=== PATIENT | female | born 1940 | race Caucasian/White ===

== ENCOUNTER 2019-05-26 19:13 | Observation (INO) | payer MEDICARE, OTHER, SELFPAY ==
[2019-05-26] VITALS (50 sets, daily range): BP systolic 143–205; BP diastolic 62–119; PULSE 54–86; RESP 12–30; TEMP 36.8–37.1; O2SAT 79–100
--- NOTE | 2019-05-26 19:26 | DI.COMBO_ITS ---
SYMPTOM/DIAGNOSIS: CHEST PAIN, DISSECTION VS PE, PT COLLAPSED PORTABLE AP CHEST: Pulmonary hyperinflation is demonstrated. There is mild prominence of the pulmonary interstitial markings. There is no pleural effusion or pneumothorax. The heart is not enlarged. Unfolding of the thoracic aorta is demonstrated. Degenerative changes involving the dorsal spine are evident. SUMMARY: Pulmonary hyperinflation and prominence of the interstitial markings is demonstrated. Nil else. PE CHEST CT: CT angiography was performed with multi slice acquisition and multi planar and 3D reconstruction. The study was carried out according to the usual protocol with an intravenous administration of 100 cc's of Omnipaque 350. There is no evidence of PE. The aorta is tortuous and ectatic measuring up to 3.8 cm. in maximal diameter. Moderate atherosclerotic changes are identified. There are moderate scattered centrilobular nodules and in addition there is a region of bronchiectasis with scarring in the left upper lobe. There is no evidence of a pneumothorax or pleural effusion. The heart is unremarkable. There is no evidence of lymphadenopathy. Degenerative changes involving the dorsal spine are evident. The soft tissues are unremarkable. SUMMARY: No evidence of PE or dissecting aortic aneurysm. The ascending aorta is ectatic measuring up to 3.8 cm. in diameter. Note is made of scattered bilateral centrilobular nodules that may be seen in infection or neoplasm and with bronchiolitis and interstitial lung disease. In addition there is patchy left upper lobe bronchiectasis and fibrotic changes.
--- NOTE | 2019-05-26 19:27 | W.ED.GENAD ---
Discharge Plan Disposition Patient Disposition: [facility] INPATIENT Condition: Stable Discharge Details Chief Complaint: Chest Pain Clinical Impression: Chest pain Primary Care Provider: Winifred Gamez ED Provider: Vinicius Jennings Home Meds and New Rx's Prescriptions: No Action lisinopril 20 mg Tablet 20 mg PO DAILY RF: 0 hydrocodone-acetaminophen [[place]ector] 7.5-325 mg Tablet 7.5 tab PO PRN PRNRF: 0 carbidopa-levodopa 25-100 mg Tablet 1 tab PO HS RF: 0 oxybutynin chloride 5 mg Tablet 10 mg PO BID RF: 0 Medical Decision Making Patient presenting to the emergency department with chief complaint of severe substernal chest pain. This started approximately 2 hours prior to arrival. Patient does state history of rib pain and scar tissue from previous injury that she takes Hector occasionally for but this evening has had pain like she has never had in the past. Patient does state that she had worked outside today but not had any pain or discomfort injury or trauma. Physical exam is unremarkable. I am concerned for dissection given patient's considerable arm pain and discomfort. Plan to obtain chest x-ray, labs, EKG, and CTA. Patient is noticeably anxious so plan to give Ativan before reassessing pressure and consideration of labetalol due to patient's slight bradycardia. p ortable chest x-ray reviewed and interpreted by [facility] as Pulmonary hyperaeration with mild prominence of the pulmonary interstitial markings. 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 Patient given 0.5mg of hydromorphone. Review of CT imaging and radiologist interpretation shows1. No current CT evidence of pulmonary embolism or dissecting aortic aneurysm. 2. Ectatic ascending aorta measuring 3.8 cm. 3. Scattered bilateral centrilobular nodules that can be seen in infection, neoplasm, and with bronchiolitis and interstitial lung disease. Please correlate clinically. 4. Patchy left upper lobe bronchiectasis with fibrotic changes. Patient reassessed and states continued chest pain but some improvement so again 0.5 mg hydromorphone given Review of labs show mild anemia otherwise unremarkable CBC, slightly elevated BUN of 22 otherwise nondiagnostic CMP, troponin is negative, BNP is 727. Patient reassessed and states significant improvement of symptoms along with pain. Plan to do second troponin. Given patient's history of hypertension, her age, and highly suspicious symptoms patient does have moderate heart score. Given this I do feel that patient should have observation admission. Second troponin reviewed and is also negative. Spoke with Dr. Balbuena who was agreeable to admit patient for observation and any further treatment as needed. Patient was agreeable with this plan. ECG Data Attestation: I personally reviewed and interpreted this ECG (s) as follows: Interpretation: EKG reviewed with attending physician Dr. Yadira Hunt and shows sinus bradycardia, rate of 59, normal axis, no STEMI, abnormal not-diagnostic HPI General Mode of arrival: wheelchair. Date/Time Provider Initiated Documentation: 05/26/19 19:16. Limitations to Documentation: no limitations. Information obtained by: patient and RN notes reviewed. History of Present Illness 78 year old F presents to the emergency department with the chief complaint of Chest pain, described as severe, with intensity rated at 10. Quality is described as crushing and sharp, Patient started experiencing this hour(s) (2) and it has been constant. No exacerbating factors reported . Patient did receive the following treatments prior to arrival, NSAID Related Data Home Medications Medication Instructions Recorded Confirmed carbidopa-levodopa 1 tab PO HS 05/26/19 05/26/19 hydrocodone-acetaminophen [[place]] 7.5 tab PO PRN PRN 05/26/19 05/26/19 lisinopril 20 mg PO DAILY 05/26/19 05/26/19 oxybutynin chloride 10 mg PO BID 05/26/19 05/26/19 Allergies Allergy/AdvReac Type Severity Reaction Status Date / Time morphine Allergy Severe Psychosis Unverified 05/26/19 19:34 Penicillins Allergy Intermediate Hives Unverified 05/26/19 19:37 General Stated Complaint: Chest Pain CASEY: 2 Review of Systems Constitutional Constitutional: Denies chills and Denies fever(s) Cardiovascular Cardiovascular: Reports as per HPI, Reports chest pain, Denies chest pain with activity, Denies syncope, Denies irregular heart rhythm, Denies palpitations and Denies dyspnea Respiratory Respiratory: Denies cough, Denies hemoptysis and Denies dyspnea Gastrointestinal Gastrointestinal: Denies abdominal pain, Denies nausea and Denies vomiting Neurologic Neurologic: Denies syncope Psychiatric Psychiatric: Reports anxiety Endocrine Endocrine: Denies palpitations [facility] Social History Smoking/Tobacco Use Status: Former Tobacco Use Alcohol Intake: never Drug use: Never Substance use type: does not use Details: stopped smoking 20 years ago Do you feel safe at home: Yes Do you feel safe in your relationship?: Yes Exam Const General: cooperative, in distress severe; not respiratory, anxious and not diaphoretic Nutritional Appearance: average body habitus Orientation: alert, awake and oriented x3 Limitations: mental status not altered Neck Neck: normal visual inspection, full ROM, trachea midline, supple and no anterior neck swelling Thyroid: thyroid normal Carotids: normal carotid upstroke and no bruits Chest Chest: normal inspection of the chest Resp Effort & Inspection: able to speak in complete sentences and tachypneic Auscultation: clear to auscultation bilaterally Cardio Jugular venous pressure: no JVD Palpation: normal PMI Rate: regular rate Rhythm: regular rhythm Heart Sounds: S1 normal, S2 normal, no click, no gallops, no murmurs and no rubs Bruits: no abdominal aortic bruits and no carotid bruits Pulses: radial pulses present bilaterally 2+ and dorsalis pedis pulses present bilaterally GI Inspection: normal to inspection Palpation: soft, no aortic enlargement, no pulsatile masses, not rigid and nontender Auscultation: normal bowel sounds and no bruits Skin General skin exam: no rashes or lesions noted Neuro General: alert, awake, oriented x3, tone normal and moves all extremities Course Vital Signs Vital signs: Vital Signs Pulse 54 L 05/26/19 19:20 Respiratory Rate 21 05/26/19 19:20 Blood Pressure 196/65 H 05/26/19 19:20 Pulse Oximetry 100 05/26/19 19:20 Temperature Source Skin 05/26/19 19:20 Pulse 54 L 05/26/19 19:20 Respiratory Rate 21 05/26/19 19:20 Blood Pressure 196/65 H 05/26/19 19:20 Blood Pressure Position Supine 05/26/19 19:20 Pulse Oximetry 100 05/26/19 19:20 Oxygen Delivery Method Room Air 05/26/19 19:20 Oxygen Flow Rate 0 05/26/19 19:20 Pain Level 10 05/26/19 19:20
[2019-05-26] MEDS: LORazepam 2 MG/ML VIAL 0.5 MG IVP (19:32)
--- NOTE | 2019-05-26 19:45 | DI.[facility]_ITS ---
EXAM: XR Chest, 1 View EXAM DATE/TIME: 05/26/2019 7:39 PM CLINICAL HISTORY: 78 years old, female; Other: Chest pain TECHNIQUE: Imaging protocol: XR of the chest Views: 1 view. COMPARISON: No relevant prior studies available. FINDINGS: Lungs: There is mild prominence of the pulmonary interstitial markings with pulmonary hyperaeration. Pleural space: Unremarkable. No pleural effusion. No pneumothorax. Heart/Mediastinum: Unremarkable. No cardiomegaly. Vasculature: There is an elongated tortuous thoracic aorta present. Bones/joints: Degenerative changes of the thoracic spine without acute osseous abnormality. IMPRESSION: Pulmonary hyperaeration with mild prominence of the pulmonary interstitial markings. Dictated and Authenticated by: Craig Nix MD. Ordering:ANN Colvin MD
[2019-05-26] MEDS: HYDROmorphone 2 MG/ML VIAL 0.5 MG IVP ×2 (19:51→20:16)
[2019-05-26 20:04] LABS: Abs Immature Grans 0.02 k/cumm (0.0-0.09); Absolute Basophil Count 0.05 k/cumm (0.0-0.2); Absolute Eosinophil Count 0.28 k/cumm (0.0-0.7); Absolute Lymphocyte Count 2.39 k/cumm (1.2-3.4); Absolute Monocyte Count 0.68 k/cumm (0.11-0.7); Absolute Neutrophil Count 5.21 k/cumm (1.2-6.7); Basophils % 0.6; Eosinophils % 3.2; HCT 35.9 % (36.0-46.0); HGB 11.6 g/dL (12.0-15.5); Immature Grans % 0.2; Lymphocytes % 27.7; Mean Corp. HGB Concentration 32.3 g/dL (32.0-36.0); Mean Corpuscular Hemoglobin 31.7 pg (27.0-33.0); Mean Corpuscular Volume 98.1 fL (80-95); Mean Platelet Volume 9.2 fL (8.0-11.0); Monocytes % 7.9; Neutrophils % 60.4; Platelet Count 347 x1000/uL (130-400); RBC 3.66 m/cumm (4.00-5.20); White Blood Cell Count 8.63 k/cumm (4.4-10.8)
[2019-05-26] MEDS: Omnipaque 350 MG/ML 100 ML BTL IJ (20:10)
[2019-05-26 20:22] LABS: ALT 20 U/L (14-59); AST 24 U/L (15-37); Albumin 4.3 g/dL (3.4-5.0); Alkaline Phosphatase 111 U/L (46-116); Anion Gap 8.3 mmol/L (3-11); BUN 22 mg/dL (7-18); Bilirubin, Total 0.3 mg/dL (0.2-1.0); CO2 27.7 mmol/L (21.0-32.0); CREATININE 0.96 mg/dL (0.55-1.02); Chloride 104 mmol/L (98-107); Estimated GFR 56.21 (mL/min/1.73m2); Glucose 89 mg/dL (70-100); Magnesium 2.2 mg/dL (1.8-2.4); NT-proBNP 727 pg/mL; Potassium 3.9 mmol/L (3.5-5.1); Sodium 140 mmol/L (136-145); Total Protein 7.1 g/dL (6.4-8.2); Troponin I < 0.05 ng/mL (0.00-0.06)
--- NOTE | 2019-05-26 21:02 | DI.[facility]_ITS ---
EXAM: CT Angiography Chest With Contrast EXAM DATE/TIME: 05/26/2019 7:53 PM CLINICAL HISTORY: 78 years old, female; Sternal or substernal pain; Additional info: Substernal chest pain, ? pe vs dissection TECHNIQUE: Imaging protocol: Computed tomographic angiography of the chest with intravenous contrast. 3D rendering: MIP reconstructed images were created and reviewed. Radiation optimization: All CT scans at this facility use at least one of these dose optimization techniques: automated exposure control; mA and/or kV adjustment per patient size (includes targeted exams where dose is matched to clinical indication); or iterative reconstruction. Contrast material: [id number]; Contrast volume: 100 ml; Contrast route: IV RAC 18G; COMPARISON: XR PORTABLE CHEST AP 05/26/2019 7:28 PM FINDINGS: Pulmonary arteries: There are no intraluminal filling defects to suggest acute pulmonary embolus. Aorta: There is an ectatic ascending aorta measuring 3.8 cm. Aorta demonstrates moderate atherosclerotic calcification. Lungs: There are bilateral scattered centrilobular nodules present. In addition there is a region of bronchiectasis with scarring in the left upper lobe. Pleural space: Unremarkable. No pneumothorax. No pleural effusion. Heart: Unremarkable. No cardiomegaly. No pericardial effusion. Lymph nodes: Unremarkable. No enlarged lymph nodes. Bones/joints: Degenerative changes of the thoracic spine without acute osseous abnormality. Soft tissues: Unremarkable. IMPRESSION: 1. No current CT evidence of pulmonary embolism or dissecting aortic aneurysm. 2. Ectatic ascending aorta measuring 3.8 cm. 3. Scattered bilateral centrilobular nodules that can be seen in infection, neoplasm, and with bronchiolitis and interstitial lung disease. Please correlate clinically. 4. Patchy left upper lobe bronchiectasis with fibrotic changes. Dictated and Authenticated by: Craig Nix MD. Ordering:ANN Colvin MD
--- NOTE | 2019-05-26 22:49 | W.PM.HP.N ---
Date of service: 05/26/19 Time of Service: 22:49 Assessment and Plan Assessment and plan (1) Chest pain: Status: Acute Assessment and plan: CP. The sharp quality, sudden onset, and vague radiation to the back -- raise concern for dissection, but none by CT imaging. No evidence otherwise of PTX, ACS, pneumonia, pericarrditis or other intrathoracic pathology. Possible esopohageal spasm or musculoskeletal etiology. Will await troponin series and otherwise watch overnight. Another consideration would be for biliary colic and if no diagnosis is forthcoming might be worth checking ultrasound. Reviewed Advance Directives, requests DNR History of Present Illness History of Present Illness Chief Complaint: CP Narrative: 78 femalw with h/o HTN. 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 No SOB, nausea, diaphoresis. No relation to deep breathing, position or PO intake. Some vague radiation to the back. In ER EKG and troponin #1 negative. CXR negative, and CTA negative PE or dissection.Received Dilaudid 1 mg in divided doses and Ativan 0.5 mg -- with essential resolution of pain. Aside ffom concern that pain might recur she feels entirely well at present. Review of Systems Review of Systems ROS Unobtainable: All systems reviewed & are unremarkable except as noted in HPI and below PFSH Social History Smoking/Tobacco Use Status: Former Tobacco Use Alcohol Intake: never Drug use: Never Substance use type: does not use Details: stopped smoking 20 years ago Do you feel safe at home: Yes Do you feel safe in your relationship?: Yes Meds Home Medications and Allergies Home Medications Medication Instructions Recorded Confirmed Type carbidopa-levodopa 1 tab PO HS 05/26/19 05/26/19 History hydrocodone-acetaminophen [[place]] 7.5 tab PO PRN PRN 05/26/19 05/26/19 History lisinopril 20 mg PO DAILY 05/26/19 05/26/19 History oxybutynin chloride 10 mg PO BID 05/26/19 05/26/19 History Allergies Allergy/AdvReac Type Severity Reaction Status Date / Time morphine Allergy Severe Psychosis Unverified 05/26/19 19:34 Penicillins Allergy Intermediate Hives Unverified 05/26/19 19:37 Exam Narrative Exam Narrative: 163/78, 64, 15, 37.1. 98%. HEENT atraumatic; neck supple w/o JVD; lungs few basilar rales; heart RRR w/o MRG; no chest wall tenderness; abdomen soft NT; extremities no edema, calves NT, Hanny's negative. Results Labs Result diagrams: 05/26/19 19:38 05/26/19 19:38 Labs: Laboratory Results - last 24 hr 05/26/19 05/26/19 19:38 19:38 WBC 8.63 RBC 3.66 L Hgb 11.6 L Hct 35.9 L MCV 98.1 H MCH 31.7 MCHC 32.3 RDW 14.0 Plt Count 347 MPV 9.2 Immature Gran % 0.2 Neutrophils % 60.4 Lymphocytes % 27.7 Monocytes % 7.9 Eosinophils % 3.2 Basophils % 0.6 Absolute Neutrophils 5.21 Absolute Lymphocytes 2.39 Absolute Monocytes 0.68 Absolute Eosinophils 0.28 Absolute Basophils 0.05 Sodium 140 Potassium 3.9 Chloride 104 Carbon Dioxide 27.7 Anion Gap 8.3 BUN 22 H Creatinine 0.96 Estimated GFR/1.73 m2 56.21 Glucose 89 Calcium 9.0 Magnesium 2.2 Total Bilirubin 0.3 AST 24 ALT 20 Alkaline Phosphatase 111 Troponin I < 0.05 NT-Pro-B Natriuret Pep 727 H Total Protein 7.1 Albumin 4.3 Last Vital Signs Temp 37.1 C 05/26/19 19:20 Pulse 63 05/26/19 22:17 Resp 17 05/26/19 22:20 BP 152/80 H 05/26/19 22:17 Pulse Ox 98 05/26/19 22:20
[2019-05-26 23:10] LABS: Troponin I < 0.05 ng/mL (0.00-0.06)
[2019-05-26] MEDS: HYDROmorphone 2 MG/ML VIAL 1 MG IVP (23:35)
[2019-05-26] MEDS: LORazepam 2 MG/ML VIAL (23:36)
[2019-05-27] VITALS (7 sets, daily range): BP systolic 146–153; BP diastolic 67–78; PULSE 67–76; RESP 17–18; TEMP 36.2–36.8; O2SAT 95–96
--- NOTE | 2019-05-27 06:07 | NUR.NOTE ---
Nursing Note: 05/27/19 0012- pt arrived from emergency room via stretcher to med surg floor. pt has belongings in room. vital signs stable and tele was put on.
[2019-05-27] MEDS: Oxybutynin 5 MG TAB 10 MG PO (07:47)
[2019-05-27] MEDS: Lisinopril 20 MG TAB PO (07:47)
[2019-05-27 07:56] LABS: Troponin I < 0.05 ng/mL (0.00-0.06)
[2019-05-27] MEDS: Acetaminophen 325 MG TAB 650 MG PO (09:46)
[2019-05-27] MEDS: Normal Saline Flush 10 ML SYR IVP (09:54)
--- NOTE | 2019-05-27 10:41 | DSE_ITS ---
Date of service: 05/27/19 Time of Service: 10:42 DS: Diagnosis Discharge Diagnosis (1) Chest pain: Start date: 05/27/19 Start time: 10:42 Status: Acute Asessment and Plan: Resolved. CT revealed Ectatic ascending aorta at 3.8 cm. Scattered bilateral centrilobular nodules question of infection, vs, neoplasm vs bronchiolitis and ILD. Patchy RONEN bronchiectasis with fibrotic changes. Follow up for results recommend. WBC not elevated, afebrile, no cough or signs of infection. Patient does have COPD. Also 48 hour holter monitor with f/u to PCP on Wednesday. Recommend outpatient echo Troponin negative. Pain resolved. Less likely cardiac related. Discharge Plan Disposition Patient Disposition: HOME Condition: Good Discharge Details Chief Complaint: Chest Pain Clinical Impression: Chest pain Reason For Visit: CP Admit Date/Time: 05/26/19 23:05 Admit Provider: Vikash Balbuena Attending Provider: Vikash Balbuena Primary Care Provider: Winifred Gamez ED Provider: Vinicius Jennings [place] [facility] Course Hospital Course: 78 y.o Female with PMH HTN admitted from [facility] emergency department for observation following a sudden sharp onset of stabbing substernal chest pain while resting after shoveling manure earlier in the day yesterday. Some radiation to back with a work for dissection or PE. Of note CT revealed Ectatic ascending aorta at 3.8 cm. Scattered bilateral centrilobular nodules question of infection, vs, neoplasm vs bronchiolitis and ILD. Patchy RONEN bronchiectasis with fibrotic changes. Follow up for results recommend. WBC not elevated, afebrile, no cough or signs of infection. Patient does have COPD. EKG was negative. Serial troponins were negative. She was given Dilaudid 1 mg and Ativan for anxiety which resolved pain. Today she denies chest pain. She did have a h/a this am with vomiting, likely from dilaudid. She endorsed being in the hospital a couple weeks ago with pneumonia and received dilaudid and developed a H/A for the first time. She was given tylenol with good results. She denies SOB, Back Pain. She is being discharged home. Recommendations for follow up on CT and echo were discussed with patient and she is agreeable. 48 hour holter monitor with f/u to PCP on Wednesday. Recommend outpatient echo, serial Troponinsnegative. Pain resolved. Less likely cardiac related. Home Meds and New Rx's Prescriptions: Continued lisinopril 20 mg Tablet 20 mg PO DAILY RF: 0 hydrocodone-acetaminophen [[place]] 7.5-325 mg Tablet 7.5 tab PO PRN PRNRF: 0 carbidopa-levodopa 25-100 mg Tablet 1 tab PO HS RF: 0 oxybutynin chloride 5 mg Tablet 10 mg PO BID RF: 0 Discharge Instructions Instructions: Chest Pain (GEN), Abdominal Aortic Aneurysm (GEN), COPD (Chronic Obstructive Pulmonary Disease) (GEN), Chest Wall Pain (GEN) Additional Instructions: Follow up with your Primary care provider on Wednesday. Recommend you have follow up for your CT scan revealing a 3.8 cm ectatic ascending aorta. Wear holter monitor for 48 hours. Headaches are common side effects of hydromorphone, recommend you do not use this medication again. Seek immediate medical attention if you have chest pain, shortness of breath, n/v/d Stand Alone Forms: Nursing Discharge Form Referrals: Winifred Gamez [Primary Care Provider] - (Please call the office on Wednesday morning to get in ) Activity:: Activity as Tolerated Equipment/Supplies:: No Equipment Needed Diet:: As Tolerated Discharge Orders Discharge Orders: Discharge Order (Routine); Ordered 05/27/19 Ordered By: Alva Garg DS: Summary Status at Discharge Functional status at discharge: independent ambulation Overall status at discharge: patient is back to baseline Mental Status: mental status grossly normal Speech and Movement: speech and movement normal Mood: congruent mood Affect: normal affect Exam [facility] Head: normal to inspection Eyes Pupils: PERRL Neck Lymphatic: no lymphadenopathy noted and no lymphedema noted Chest Chest: normal inspection of the chest Resp Effort & Inspection: normal respiratory effort Auscultation: clear to auscultation bilaterally Cardio Jugular venous pressure: no JVD Palpation: normal PMI Rate: regular rate Rhythm: regular rhythm Heart Sounds: S1 normal and S2 normal GI Inspection: normal to inspection Auscultation: normal bowel sounds Skin General skin exam: no rashes or lesions noted Hair: normal Neuro General: alert, awake and oriented x3 Extrem General: normal to inspection Psych Appearance: grossly normal Mental Status: mental status grossly normal Speech and Movement: speech and movement normal Mood: congruent mood Affect: normal affect DS: Data Vitals/I&O Vitals and I&O: Vital Signs Temperature 36.2 C L 05/27/19 08:12 Temperature Source Tympanic 05/27/19 08:12 Pulse 76 05/27/19 10:20 Pulse Rhythm Regular 05/27/19 08:30 Pulse 80 05/26/19 23:46 Respiratory Rate 18 05/27/19 08:12 Respiratory Effort Non-Labored 05/27/19 08:30 Respiratory Depth Normal 05/27/19 08:30 Respiratory Pattern Normal 05/27/19 08:30 Blood Pressure 152/67 H 05/27/19 08:12 Blood Pressure Mean 83 05/26/19 23:46 Blood Pressure Position Supine 05/26/19 19:20 Pulse Oximetry 96 05/27/19 08:30 Oxygen Delivery Method Room Air 05/27/19 08:30 Oxygen Flow Rate 0 05/27/19 08:30 Pain Level 3 05/27/19 09:46 Intake & Output 05/26/19 05/26/19 05/27/19 11:59 23:59 11:59 Intake Total 240 / 240 Balance 240 / 240 Weight 58.967 kg 58.967 kg Intake: Oral 240 / 240 Other: Urine Color Yellow Urine Appearance Clear Urine Odor Normal Comment Voiding ad jenni in toilet; pt missed hat. Denies sx. Emesis Description Undigested Food Voiding Methods Toilet Data Completed and Pending Completed studies during hospitalization [Text1]: EXAM: CT Angiography Chest With Contrast EXAM DATE/TIME: 05/26/2019 7:53 PM CLINICAL HISTORY: 78 years old, female; Sternal or substernal pain; Additional info: Substernal chest pain, ? pe vs dissection TECHNIQUE: Imaging protocol: Computed tomographic angiography of the chest with intravenous contrast. 3D rendering: MIP reconstructed images were created and reviewed. Radiation optimization: All CT scans at this facility use at least one of these dose optimization techniques: automated exposure control; mA and/or kV adjustment per patient size (includes targeted exams where dose is matched to clinical indication); or iterative reconstruction. Contrast material: [id number]; Contrast volume: 100 ml; Contrast route: IV RAC 18G; COMPARISON: XR PORTABLE CHEST AP 05/26/2019 7:28 PM FINDINGS: Pulmonary arteries: There are no intraluminal filling defects to suggest acute pulmonary embolus. Aorta: There is an ectatic ascending aorta measuring 3.8 cm. Aorta demonstrates moderate atherosclerotic calcification. Lungs: There are bilateral scattered centrilobular nodules present. In addition there is a region of bronchiectasis with scarring in the left upper lobe. Pleural space: Unremarkable. No pneumothorax. No pleural effusion. Heart: Unremarkable. No cardiomegaly. No pericardial effusion. Lymph nodes: Unremarkable. No enlarged lymph nodes. Bones/joints: Degenerative changes of the thoracic spine without acute osseous abnormality. Soft tissues: Unremarkable. IMPRESSION: 1. No current CT evidence of pulmonary embolism or dissecting aortic aneurysm. 2. Ectatic ascending aorta measuring 3.8 cm. 3. Scattered bilateral centrilobular nodules that can be seen in infection, neoplasm, and with bronchiolitis and interstitial lung disease. Please correlate clinically. 4. Patchy left upper lobe bronchiectasis with fibrotic changes. Exam(s) EXAM: XR Chest, 1 View EXAM DATE/TIME: 05/26/2019 7:39 PM CLINICAL HISTORY: 78 years old, female; Other: Chest pain TECHNIQUE: Imaging protocol: XR of the chest Views: 1 view. COMPARISON: No relevant prior studies available. FINDINGS: Lungs: There is mild prominence of the pulmonary interstitial markings with pulmonary hyperaeration. Pleural space: Unremarkable. No pleural effusion. No pneumothorax. Heart/Mediastinum: Unremarkable. No cardiomegaly. Vasculature: There is an elongated tortuous thoracic aorta present. Bones/joints: Degenerative changes of the thoracic spine without acute osseous abnormality. IMPRESSION: Pulmonary hyperaeration with mild prominence of the pulmonary interstitial markings. Labs on day of discharge: Labs from last 24 hours 05/27/19 05/26/19 05/26/19 06:20 22:30 19:38 WBC 8.63 RBC 3.66 L Hgb 11.6 L Hct 35.9 L MCV 98.1 H MCH 31.7 MCHC 32.3 RDW 14.0 Plt Count 347 MPV 9.2 Immature Gran % 0.2 Neutrophils % 60.4 Lymphocytes % 27.7 Monocytes % 7.9 Eosinophils % 3.2 Basophils % 0.6 Absolute Neutrophils 5.21 Absolute Lymphocytes 2.39 Absolute Monocytes 0.68 Absolute Eosinophils 0.28 Absolute Basophils 0.05 Sodium Potassium Chloride Carbon Dioxide Anion Gap BUN Creatinine Estimated GFR/1.73 m2 Glucose Calcium Magnesium Total Bilirubin AST ALT Alkaline Phosphatase Troponin I < 0.05 < 0.05 NT-Pro-B Natriuret Pep Total Protein Albumin 05/26/19 19:38 WBC RBC Hgb Hct MCV MCH MCHC RDW Plt Count MPV Immature Gran % Neutrophils % Lymphocytes % Monocytes % Eosinophils % Basophils % Absolute Neutrophils Absolute Lymphocytes Absolute Monocytes Absolute Eosinophils Absolute Basophils Sodium 140 Potassium 3.9 Chloride 104 Carbon Dioxide 27.7 Anion Gap 8.3 BUN 22 H Creatinine 0.96 Estimated GFR/1.73 m2 56.21 Glucose 89 Calcium 9.0 Magnesium 2.2 Total Bilirubin 0.3 AST 24 ALT 20 Alkaline Phosphatase 111 Troponin I < 0.05 NT-Pro-B Natriuret Pep 727 H Total Protein 7.1 Albumin 4.3 PFSH Social History Smoking/Tobacco Use Status: Former Tobacco Use Alcohol Intake: never Drug use: Never Substance use type: does not use Details: stopped smoking 20 years ago Do you feel safe at home: Yes Do you feel safe in your relationship?: Yes
--- NOTE | 2019-05-27 16:57 | PDOC.CMDIS ---
LACE Index Scoring Tool - Questions: Length of Stay (in days): 1 Acuity (Admit via E.D.?): Yes E.D. Visits: 1 - Answers: Total Score: 5 Risk of Readmission: Low Risk Care Management Discharge Reason for Hospitalization: Chest Pain Discharge Plan: Rocio lives alone and is independent at baseline. She will return home and no services will be needed. Family will transport. Patient/Family Education Needs: Discharge instructions and follow up appointment with PCP.
== END 2019-05-27 12:33 | disposition home or self-care (01) ==
LOC: ER 05-27 00:03 → MS 05-27 00:05
PROVIDERS: Admitting Provider General Practice; Emergency Provider Nurse Practitioner Family; PCP Family Medicine; Visit Provider Internal Medicine
DX: R07.89 Other chest pain (principal); J44.9 Chronic obstructive pulmonary disease, unspecified; I10 Essential (primary) hypertension; F41.9 Anxiety disorder, unspecified; Z87.891 Personal history of nicotine dependence
CPT/HCPCS: 36415; 71275; 80053; 93005; 96374; 96375; 96376; 99222; 99239; 99285; 71045; 83735; 83880; 84484; 85025; 93010; 93225; 99217; 99219; G0378; J2060; J3490

== ENCOUNTER → 2019-05-29 13:15 | Outpatient (CLI) | payer MEDICARE, OTHER, SELFPAY ==
--- NOTE | 2019-05-29 14:54 | HOLTER_ITS ---
DATE OF DICTATION: May 29, 2019 STUDY INDICATION: Chest pain. REQUESTING PROVIDER: Not available. FINDINGS: The patient was monitored for 2 days. The baseline rhythm was sinus rhythm. Average heart rate 80 bpm, range 56 to 132 bpm. Rare PVC's, 0.7%.. No ventricular tachycardia. Rare PAC's, 0.1%. 11 atrial runs, longest 14 beats, fastest 193 bpm. No high-degree heart block. No pauses greater than 3 seconds. No patient events. FINAL INTERPRETATION: Rare ventricular and atrial arrhythmias, asymptomatic.
== END ==
PROVIDERS: PCP Family Medicine; Visit Provider Family Medicine
DX: R07.89 Other chest pain (principal); I49.3 Ventricular premature depolarization; I49.1 Atrial premature depolarization
CPT/HCPCS: 93227; 93226

== ENCOUNTER 2020-06-13 08:00 | Outpatient (REF) | payer MEDICARE, OTHER, SELFPAY ==
[2020-06-14 12:39] LABS: C Diff PCR Negative (Negative)
[2020-06-18 15:50] LABS: Misc Referral (VDH) See Comments
== END 2020-06-13 08:20 ==
LOC: LBN 08:00
PROVIDERS: PCP Family Medicine; Visit Provider Family Medicine
DX: K52.9 Noninfective gastroenteritis and colitis, unspecified (principal)
CPT/HCPCS: 87493; 83630; 87177; 87324

== ENCOUNTER 2020-09-06 19:57 | Observation (INO) | payer MEDICARE, OTHER, SELFPAY ==
[2020-09-06] VITALS (39 sets, daily range): BP systolic 132–183; BP diastolic 69–150; PULSE 60–91; RESP 13–30; TEMP 37.2; O2SAT 93–99
--- NOTE | 2020-09-06 20:00 | RT.EKG_ITS ---
APPROVED REPORT Exam: Resting ECG Patient Location: E HR:67 bpm ECG Measurements Heart Rate 67 AXIS WA 189 P 72 QRSd 110 QRS -14 QT 398 T 68 QTc 421 Conclusion Sinus rhythm...normal P axis, V-rate 60- 99 Probable left atrial enlargement...P >50mS, <-0.10mV V1 Left ventricular hypertrophy...multiple LVH criteria Normal [place]
[2020-09-06 20:25] LABS: Abs Immature Grans 0.02 10^3/uL (0.0-0.06); Absolute Basophil Count 0.05 10^3/uL (0.0-0.2); Absolute Eosinophil Count 0.17 10^3/uL (0.0-0.7); Absolute Lymphocyte Count 2.38 10^3/uL (1.2-3.4); Absolute Monocyte Count 0.54 10^3/uL (0.1-0.8); Absolute Neutrophil Count 4.76 10^3/uL (1.2-6.7); Basophils % 0.6; Eosinophils % 2.1; HCT 38.1 % (36.0-46.0); HGB 12.7 g/dL (11.2-15.7); Immature Grans % 0.3; Lymphocytes % 30.1; MCH 32.4 pg (27.0-33.0); MCHC 33.3 % (32.0-36.0); MCV 97.2 fL (80-95); MPV 9.2 fL (8.0-11.0); Monocytes % 6.8; Neutrophils % 60.1; Nucleated RBC 0 %; Platelet Count 286 10^3/uL (130-400); RBC 3.92 10^6/uL (3.93-5.22); RDW 13.1 % (11.7-14.6); RDW-SD 46.9 fL; WBC 7.92 10^3/uL (4.4-10.8)
[2020-09-06 20:25] LABS: Source Nasopharynx
--- NOTE | 2020-09-06 20:34 | W.ED.GENAD ---
Discharge Plan Disposition Patient Disposition: [facility] INPATIENT Condition: Poor Discharge Details Clinical Impression: Hemoptysis, Right upper lobe pulmonary infiltrate Primary Care Provider: Winifred Gamez ED Provider: Albert Baez [place] Meds and New Rx's Prescriptions: No Action lisinopril 20 mg Tablet 20 mg PO DAILY RF: 0 hydrocodone-acetaminophen [[place]] 7.5-325 mg Tablet 7.5 tab PO PRN PRNRF: 0 oxybutynin chloride 5 mg Tablet 10 mg PO BID RF: 0 fluticasone propion-salmeterol [Advair Diskus] 100-50 mcg/dose Blister With Device 1 inh INHALATION BID RF: 0 diltiazem HCl [Cartia XT] 120 mg Capsule,Extended Release 24hr 120 mg PO DAILY RF: 0 dicyclomine 10 mg Capsule 10 mg PO TID RF: 0 Medical Decision Making Patient presenting with hemoptysis. She arrives with tissues full of blood. She has normal heart rate and RA pulse ox. She is hypertensive. She has clear lungs and is in no distress. IV established. Labs drawn. CTA of chest ordered. Patient without COVID risk but rapid COVID obtained and sent. Patient's COVID is negative. Flu and RSV negative. Labs unremarkable. White count normal with normal diff. Hgb and platelets normal. Coags normal. CTA chest without PE. RUL infiltrated. No bronchial mass or bronchiectasis. Patient remains stable and in no distress but continues to cough up blood. Case discussed with pulmonology at [facility]. Patient prefers to stay here if possible. Pulmonary would not take to bronch at this time. They would watch and start abx. If unstable or if continues with hemoptysis after a few days would send to IR for emolization. Discussed with patient. Discussed with hospitalist. Patient wants to stay here for now. She is revoking her DNR/DNI and wants everything done at this point. Patient understands that she may ultimately need to go to [facility] including emergently if she becomes unstable. Patient admitted to ICU here. Medical Records Medical records reviewed: Yes I reviewed the patient's medical records. Lab Data Lab results reviewed: Yes I reviewed the patient's lab results. ECG Data Attestation: I personally reviewed and interpreted this ECG (s) as follows: Interpretation: see EKG HPI General Mode of arrival: wheelchair. Date/Time Provider Initiated Documentation: 09/06/20 20:12. Limitations to Documentation: no limitations. Information obtained by: patient, RN notes reviewed and old records reviewed. HPI Narrative: Patient presents to ED with complaint of coughing up blood. Patient has had a slight cough for a couple of days. This morning started to cough up a little blood which progressed throughout the day. No coughing up nothing but blood. Denies fever, chills, CP, SOB, leg pain, leg swelling. Leaves alone and rarely goes out. When she does she wears a mask, face shield and gloves. She has not smoked for over 25 years. Related Data Home Medications Medication Instructions Recorded Confirmed hydrocodone-acetaminophen [[place]] 7.5 tab PO PRN PRN 05/26/19 09/06/20 lisinopril 20 mg PO DAILY 05/26/19 09/06/20 oxybutynin chloride 10 mg PO BID 05/26/19 09/06/20 dicyclomine 10 mg PO TID 09/06/20 09/06/20 diltiazem HCl [Cartia XT] 120 mg PO DAILY 09/06/20 09/06/20 fluticasone propion-salmeterol 1 inh INHALATION BID 09/06/20 09/06/20 [Advair Diskus] Allergies Allergy/AdvReac Type Severity Reaction Status Date / Time morphine Allergy Severe Psychosis Unverified 09/06/20 20:11 Penicillins Allergy Intermediate Hives Unverified 09/06/20 20:11 General Stated Complaint: GI Bleed CASEY: 2 Review of Systems Narrative: 06/26 Review of Systems completed and is negative except as stated above in HPI (Systems reviewed: Const, Eyes, ENT, Resp, CV, GI, , MSK, Skin, Neuro) PFSH Medical History COPD (chronic obstructive pulmonary disease) HTN (hypertension) Urinary frequency Surgical History S/P appendectomy Social History Smoking/Tobacco Use Status: Former Tobacco Use Smoking risk assessment performed?: Yes Alcohol Intake: never Drug use: Never Substance use type: does not use Details: stopped smoking 20 years ago Do you feel safe at home: Yes Do you feel safe in your relationship?: Yes Exam Narrative Exam Narrative: Const: WDWN elderly female in NAD. HEENT: NC/AT. Normal facial exam. Eyes: Normal conjunctiva and sclera. Neck: Supple. Trachea midline. Lungs: Normal respiratory effort. Lungs are clear. Cor: RRR without murmur/gallop. Good radial pulses. GI: Soft. NT/ND. No guarding or rebound. Neuro: A+O x 3. Normal speech, mentation, gait. Cranial nerves II - XII grossly intact. No gross motor or sensory deficit. Ext: No C/C/E. No calf tenderness. Skin: Warm and dry without rash. Course Vital Signs Vital signs: Vital Signs Temperature 99.0 F 09/06/20 20:05 Pulse 88 09/06/20 20:05 Respiratory Rate 16 09/06/20 20:05 Pulse Oximetry 95 09/06/20 20:05 Temperature 99.0 F 09/06/20 20:05 Temperature Source Skin 09/06/20 20:05 Pulse 88 09/06/20 20:05 Respiratory Rate 16 09/06/20 20:05 Respiratory Effort 09/06/20 20:16 Pulse Oximetry 95 09/06/20 20:05 Pain Level 0 09/06/20 20:05 Lab/Test Results Lab/Test Results: Laboratory Tests Range/Units 09/06/20 20:10 WBC (4.4-10.8) 10^3/uL 7.92 RBC (3.93-5.22) 10^6/uL 3.92 L Hgb (11.2-15.7) g/dL 12.7 Hct (36.0-46.0) % 38.1 MCV (80-95) fL 97.2 H MCH (27.0-33.0) pg 32.4 MCHC (32.0-36.0) % 33.3 RDW (11.7-14.6) % 13.1 Plt Count (130-400) 10^3/uL 286 MPV (8.0-11.0) fL 9.2 Immature Gran % 0.3 Neutrophils % 60.1 Lymphocytes % 30.1 Monocytes % 6.8 Eosinophils % 2.1 Basophils % 0.6 Nucleated RBC % % 0 Absolute Neutrophils (1.2-6.7) 10^3/uL 4.76 Absolute Lymphocytes (1.2-3.4) 10^3/uL 2.38 Absolute Monocytes (0.1-0.8) 10^3/uL 0.54 Absolute Eosinophils (0.0-0.7) 10^3/uL 0.17 Absolute Basophils (0.0-0.2) 10^3/uL 0.05 Critical Care Time Critical Care Time Critical Care Time: Yes Total Critical Care Time: 45 Attestation: Upon my evaluation, this patient had a high probability of imminent or life-threatening deterioration, which required my direct attention, intervention, and personal management. I have personally provided 45 minutes of critical care time exclusive of time spent on separately billable procedures. Time includes review of laboratory data, radiology results, discussion with consultants, and monitoring for potential decompensation. Interventions were performed as documented above.
[2020-09-06 20:38] LABS: ALT 22 U/L (14-59); AST 16 U/L (15-37); Alkaline Phosphatase 119 U/L (46-116); Anion Gap 7.5 mmol/L (3-11); BUN 28 mg/dL (7-18); Bilirubin, Total 0.2 mg/dL (0.2-1.0); CO2 25.5 mmol/L (21.0-32.0); CREATININE 1.18 mg/dL (0.55-1.02); Calcium 8.7 mg/dL (8.5-10.1); Chloride 106 mmol/L (98-107); Estimated GFR 44.18 (mL/min/1.73m2); Glucose 131 mg/dL (74-106); Potassium 3.8 mmol/L (3.5-5.1); Sodium 139 mmol/L (136-145); Total Protein 7.5 g/dL (6.4-8.2)
[2020-09-06 20:39] LABS: PTT Activated 24.1 sec (21.0-27.5); Prothrombin Time 9.9 sec (9.3-11.0)
[2020-09-06] MEDS: Lactated Ringers 1,000 ML 100 ML IV (20:41)
[2020-09-06 21:08] LABS: COVID-19 PCR Negative (Negative); Influenza A PCR Negative (Negative); Influenza B PCR Negative (Negative); RSV PCR Negative (Negative)
[2020-09-06] MEDS: Omnipaque 350 MG/ML 100 ML BTL IJ (21:30)
[2020-09-06] MEDS: Normal Saline - Diluent 50 ML VIAL IV (21:31)
[2020-09-06] MEDS: Normal Saline Flush 10 ML SYR IVP (21:31)
--- NOTE | 2020-09-06 21:34 | DI.CT_ITS ---
EXAM: CT CHEST PE CTA CLINICAL HISTORY: hemoptysis. TECHNIQUE: Imaging Protocol: Axial CT angiography was performed with multi-slice acquisition and mu lti-planar and/or 3D reconstructions. CONTRAST MATERIAL: Intravenous: Omnipaque 350 Contrast volume:60 ml COMPARISON: No exams were available for comparison FINDINGS: Pulmonary Arteries: No evidence of filling defect to suggest pulmonary emboli. Tracheobronchial tree: Patent where visualized. Mediastinum and Yoselin: No dominant adenopathy or fluid collection. Pulmonary parenchyma: Right upper lobe infiltrate medially at the apex. Minimally increased patchy d ensities more inferiorly in the right upper lobe.. Pleura: No effusion or pneumothorax. Heart: The heart is mildly dilated. Mild coronary artery calcifications are seen. Aorta: Ascending aorta measures 3.6 cm. Moderate calcification.. The descending aorta is tortuous. No dissection. Upper abdomen: Unremarkable. Bones: Old right 6 through 8th rib fractures. No acute fracture. Degenerative changes in the spine. No compression fractures. Upper abdomen: Dense calcification at the origins of the renal arteries. Small cyst right kidney. U nremarkable liver and spleen where visualized. IMPRESSION: No evidence of pulmonary embolism. Right upper lobe infiltrate. RADIATION DOSE DELIVERED: 215.61mGy.cm Total DLP DATA REPOSITORY: All CT scans at this facility are submitted to the National Radiology Data Registry (NRDR) Dose Index Registry (DIR) with the [employer] (ACR). RADIATION OPTIMIZATION: All CT scans at this facility use at least one of these dose optimization te chniques: automated exposure control; mA and/or kV adjustment per patient size (includes targeted exa ms where dose is matched to clinical indication); or iterative reconstruction.
--- NOTE | 2020-09-06 22:13 | DI.VRAD_ITS ---
PROCEDURE INFORMATION: Exam: CT Angiography Chest With Contrast Exam date and time: 09/06/2020 8:15 PM Age: 79 years old Clinical indication: Other: Hemoptysis TECHNIQUE: Imaging protocol: Computed tomographic angiography of the chest with intravenous contrast. 3D rendering (Not supervised by radiologist): MIP and/or 3D reconstructed images were created by the technologist. Radiation optimization: All CT scans at this facility use at least one of these dose optimization techniques: automated exposure control; mA and/or kV adjustment per patient size (includes targeted exams where dose is matched to clinical indication); or iterative reconstruction. Contrast material: [id number]; Contrast volume: 60 ml; Contrast route: INTRAVENOUS (IV); COMPARISON: CT THORAX CTA 05/26/2019 7:59 PM FINDINGS: Pulmonary arteries: Normal. No pulmonary emboli. Aorta: 3.6 cm ascending thoracic aorta. Moderate calcified atherosclerotic disease. Lungs: Right apical pulmonary parenchymal ground-glass opacity Pleural space: Unremarkable. No pneumothorax. No pleural effusion. Heart: Mild multichamber cardiomegaly. No pericardial effusion. Lymph nodes: Unremarkable. No enlarged lymph nodes. Kidneys and ureters: 11 mm left renal simple cyst. Included kidneys are otherwise unremarkable. Bones/joints: Healed lateral right 6th, 7th, and 8th rib fractures. Multilevel degenerative disc disease. No acute fracture or focal suspicious osseous lesion. Soft tissues: Unremarkable. IMPRESSION: 1. Right upper lobe pneumonia. 2. Calcified atherosclerotic disease with ectasia of thoracic aorta. 3. Mild multichamber cardiomegaly. 4. Right renal simple cyst. No further imaging required. Dictated and Authenticated by: Vikash Greco MD. Ordering:ELIZABETH Price MD
[2020-09-06] MEDS: cefTRIAXone 1 GM/50 ML BAG IVPB (23:13)
--- NOTE | 2020-09-06 23:32 | HPE_ITS ---
Date of service: 09/06/20 Time of Service: 23:36 Assessment and Plan Assessment and plan (1) Hemoptysis: Status: Acute Assessment and plan: With absence of fever or leukocytosis, and exceedingly intermittent symptoms -- she has had only two spells today -- I am not convinced at present that this is in fact a pneumonia, or even an infectious process, though could well prove to simply be an atypical manifestation and I would agree with empiric antibiotics for now. I do wonder about an upper airway lesion in light of both the report of hoarseness and her own sense of where she feels an accumulation. If symptoms do not respond would likely need some imaging, either laryngoscopy or bronch. Reviewed ADs. Emphasizes that she wishes to be DNR, but does want intervention for this particular issue. Note that in earlier discussions with ER she revoked her prior DNR status, but again she is very clear to me that by this she means she wishes to have the hemoptysis addressed fully, but otherwise does not want formal CPR. History of Present Illness History of Present Illness Chief Complaint: hemoptysis Narrative: 79 female with h/o COPD, former smoker, comes in with several days of hoarseness and one day of hemoptysis, occurring intermittently; between spells she feels entirely well. Says that she will feel something accumulating in her throat -- here she points to a spot somewhat below jugular notch -- which precedes an episode of hemoptysis. No fever, SOB, CP or cough otherwise. In ER findings of note for absence of fever or leukocytosis and CTA negative for PE but showing ground glass opacity RUL. Rapid Covid negative. Case was reviewed with Pulmonary at [facility] who advised empiric antibiotics. She is admitted for further management. Review of Systems All systems reviewed & are unremarkable except as noted in HPI and below PFSH Medical History COPD (chronic obstructive pulmonary disease) HTN (hypertension) Urinary frequency Surgical History S/P appendectomy Social History Smoking/Tobacco Use Status: Former Tobacco Use Smoking risk assessment performed?: Yes Alcohol Intake: never Drug use: Never Substance use type: does not use Details: stopped smoking 20 years ago Do you feel safe at home: Yes Do you feel safe in your relationship?: Yes Meds Home Medications and Allergies Home Medications Medication Instructions Recorded Confirmed Type hydrocodone-acetaminophen [Oran] 7.5 tab PO PRN PRN 05/26/19 09/06/20 History lisinopril 20 mg PO DAILY 05/26/19 09/06/20 History oxybutynin chloride 10 mg PO BID 05/26/19 09/06/20 History dicyclomine 10 mg PO TID 09/06/20 09/06/20 History diltiazem HCl [Cartia XT] 120 mg PO DAILY 09/06/20 09/06/20 History fluticasone propion-salmeterol 1 inh INHALATION BID 09/06/20 09/06/20 History [Advair Diskus] Allergies Allergy/AdvReac Type Severity Reaction Status Date / Time morphine Allergy Severe Psychosis Unverified 09/06/20 20:11 Penicillins Allergy Intermediate Hives Unverified 09/06/20 20:11 Exam Narrative Exam Narrative: 163/103, 72, 37.2, 24, 97% RA. HEENT atraumatic; neck supple; lungs clear; heart RRR w/o MRG; abdomen soft and NT; extremities w/o edema; neuro Ox3, nonfocal Results Labs Result diagrams: 09/06/20 20:10 09/06/20 20:10 Labs: Laboratory Results - last 24 hr 09/06/20 09/06/20 09/06/20 20:10 20:10 20:10 WBC RBC Hgb Hct MCV MCH MCHC RDW Plt Count MPV Immature Gran % Neutrophils % Lymphocytes % Monocytes % Eosinophils % Basophils % Nucleated RBC % Absolute Neutrophils Absolute Lymphocytes Absolute Monocytes Absolute Eosinophils Absolute Basophils PT 9.9 INR 1.0 APTT 24.1 Sodium 139 Potassium 3.8 Chloride 106 Carbon Dioxide 25.5 Anion Gap 7.5 BUN 28 H Creatinine 1.18 H Estimated GFR/1.73 m2 44.18 Glucose 131 H Calcium 8.7 Total Bilirubin 0.2 AST 16 ALT 22 Alkaline Phosphatase 119 H Total Protein 7.5 Albumin 4.0 COVID-19 Source SARS-CoV-2 (PCR) Influenza Type A (PCR) Influenza Type B (PCR) RSV (PCR) Patient ABO/Rh O Positive Antibody Screen Negative 09/06/20 09/06/20 20:10 20:20 WBC 7.92 RBC 3.92 L Hgb 12.7 Hct 38.1 MCV 97.2 H MCH 32.4 MCHC 33.3 RDW 13.1 Plt Count 286 MPV 9.2 Immature Gran % 0.3 Neutrophils % 60.1 Lymphocytes % 30.1 Monocytes % 6.8 Eosinophils % 2.1 Basophils % 0.6 Nucleated RBC % 0 Absolute Neutrophils 4.76 Absolute Lymphocytes 2.38 Absolute Monocytes 0.54 Absolute Eosinophils 0.17 Absolute Basophils 0.05 PT INR APTT Sodium Potassium Chloride Carbon Dioxide Anion Gap BUN Creatinine Estimated GFR/1.73 m2 Glucose Calcium Total Bilirubin AST ALT Alkaline Phosphatase Total Protein Albumin COVID-19 Source Nasopharynx SARS-CoV-2 (PCR) Negative Influenza Type A (PCR) Negative Influenza Type B (PCR) Negative RSV (PCR) Negative Patient ABO/Rh Antibody Screen Last Vital Signs Temp 37.2 C 09/06/20 20:05 Pulse 75 09/06/20 23:17 Resp 24 09/06/20 23:20 BP 163/103 H 09/06/20 23:17 Pulse Ox 97 09/06/20 23:20 COVID-19 Screening Have you, or household traveled for leisure in last 14 days?: No Had IN PERSON contact w/suspected or confirmed C-19 person: No
[2020-09-06] MEDS: AZITHROMYCIN 500 MG in Normal Saline 250 ML 250 MG IVPB (23:48)
[2020-09-07] VITALS (80 sets, daily range): BP systolic 148–179; BP diastolic 57–97; PULSE 52–95; RESP 13–33; TEMP 36.3–37.1; O2SAT 18–100
[2020-09-07] MEDS: Lactated Ringers 1,000 ML 100 ML IV (04:42)
[2020-09-07] MEDS: Lisinopril 20 MG TAB PO (07:52)
[2020-09-07] MEDS: dilTIAZem CD 120 MG CAPCR PO (07:53)
[2020-09-07] MEDS: Oxybutynin 5 MG TAB 10 MG PO (07:53)
[2020-09-07] MEDS: Dicyclomine 10 MG CAP PO (07:53)
--- NOTE | 2020-09-07 08:44 | INITIAL_ITS ---
- If Service Date Differs Date of service: 09/07/20 Time of Service: 08:44 Care Management Initial Assess REASON FOR HOSPITALIZATION:: hemoptysid PAST MEDICAL HISTORY/PAST SURGICAL HISTORY:: Medical History . COPD (chronic obstructive pulmonary disease). HTN (hypertension). Urinary frequency. Surgical History . S/P appendectomy PREVIOUS FUNCTIONAL STATUS/SOCIAL/FAMILY SUPPORTS:: Rocio lives in [facility]. CURRENT FUNCTIONAL STATUS:: Rocio was dressed and ready to discharge when CM came to see her. She expressed being very happy to be going home. She denies the need for any services and stated she would be following up with her PCP. ADVANCE DIRECTIVES:: On file from 2013. [facility]- Dr. Demetrio Howell CODE STATUS:: DNR/DNI INSURANCE COVERAGE / FINANCIAL ISSUES:: Medicare. [employer] PRIMARY CARE PHYSICIAN:: Winifred Gamez POTENTIAL DISCHARGE NEEDS:: Follow up with PCP and plan of care PATIENT/FAMILY EDUCATION NEEDS:: Discharge plan, limitations, follow up plan, [employer] TRANSPORTATION:: via private vehicle with family PLAN:: Rocio will discharge home with no new services and follow up with her PCP.
[2020-09-07] MEDS: Benzonatate 200 MG CAP PO (09:15)
--- NOTE | 2020-09-07 11:19 | PHA.REVIEW ---
Pharmacy Admission Review - Admission Clinical Review (Last Updated 09/07/20 @ 11:18 by Carlin Vuong) Hemoptysis (Acute) Right upper lobe pulmonary infiltrate (Acute) morphine Allergy (Severe, Unverified 09/06/20 20:11) Psychosis Penicillins Allergy (Intermediate, Unverified 09/06/20 20:11) Hives Height 5 ft 9 in Weight 63 kg - Renal Dosing Renal Dosing: BUN 28 mg/dL (7-18) H 09/06/20 20:10 Creatinine 1.18 mg/dL (0.55-1.02) H 09/06/20 20:10 Medications needing adjustments: Reviewed (Crcl ~38 mL/min current meds okay) - Anticoagulation Anticoagulation: Hgb 12.7 g/dL (11.2-15.7) 09/06/20 20:10 Hct 38.1 % (36.0-46.0) 09/06/20 20:10 Plt Count 286 10^3/uL (130-400) 09/06/20 20:10 INR 1.0 (0.9-1.1) 09/06/20 20:10 Creatinine 1.18 mg/dL (0.55-1.02) H 09/06/20 20:10 DVT Prohphylaxis: Reviewed (no meds ordered due to hemoptysis) - Opiate Usage Evaluate Pain Scale/Pains Meds: Reviewed Scheduled Bowel Reg ordered if on Opiates?: No (pt having liquid stools) - Relevant Labs Sodium 139 mmol/L (136-145) 09/06/20 20:10 Potassium 3.8 mmol/L (3.5-5.1) 09/06/20 20:10 Chloride 106 mmol/L (98-107) 09/06/20 20:10 Electrolytes, C-Reactive P, ESR: Reviewed - DM Control DM Control: Glucose 131 mg/dL (74-106) H 09/06/20 20:10 Insulin Dosing: N/A (BG elevated on admission, no values since) - Heart Failure/MN EF%, SHIVAM's, B-Blockers, Diuretics: N/A - BP Control BP Control: Blood Pressure [Left Arm] 150/75 Blood Pressure [Left Arm] 154/57 Blood Pressure 160/83 Blood Pressure 162/77 Blood Pressure 164/78 Blood Pressure 159/74 Blood Pressure 179/97 If elevated: Reviewed (Has been elevated most of this admission, has diltiazem and lisinopril ordered.) - Qtc Review If Elevated: N/A (QTc was 421 on admission) - IV to PO Switch IV Medications: Reviewed - Home Meds Home Med List reviewed: Reviewed (Multiple anticholinergic meds (dicyclomine and oxybutynin); watch for additive anticholinergic effects.) Relevent Home Meds Not ordered & why?: fluticasone/salmeterol (therapeutic substitution ordered) - Current meds Current Medication Order Review: Intervened (changed ceftriaxone from admix to premix, fixed melatonin order (PRN), discontinued DI meds as they had already been given) - Comments Comments/Follow Ups: Watch BP, SCr, and for med changes (renal dose adjustments, need of BM meds). Antibiotic Activity - Pharmacy Antibiotic Review Pharmacy Antibiotic Activity: Reviewed, no change (ceftriaxone and azithromycin continue (Day 2 starts tonight))
[2020-09-07] MEDS: Budesonide/Formoterol 80/4.5 6.9 GM 60 PUFF INH IH (11:42)
--- NOTE | 2020-09-07 11:46 | W.PM.PROGNOT ---
Date of Service Date of service: 09/07/20 Time of Service: 11:46 Assessment and Plan Assessment and plan (1) Hemoptysis: Status: Acute Assessment and plan: No further hemoptysis since admission from the emergency department last night. Patient remains afebrile and not hypoxemic. Patient is desiring to return home. She will be discharged home on Tessalon Perles 200 mg p.o. 3 times daily for cough suppression and a short course of Levaquin 750 mg p.o. daily x7 days. Recommend patient have a follow-up with both her PCP Dr. Gamez next week and w/ Dr. Goff, pulmonology in the next 2 weeks. Patient to have follow up CXR next week. (2) Right upper lobe pulmonary infiltrate: Status: Acute Assessment and plan: as above Subjective Subjective Interval history since last seen: Patient was admitted through the emergency department last night by Dr. Vikash Balbuena for evaluation and observation for hemoptysis. Patient is a 79-year-old female patient of Dr. Winifred Gamez @ [facility] who has mild COPD, HTN, mild cognitive impairment, meningioma, RLS and aortic ectasia who presented to the ER yesterday evening d/t hemoptysis. She says that this started on and was just a tinge of blood but on she had two more episodes w/ the last one on night in the evening and that she says filled two handfuls of blood. She denies any fever, rigors, night sweats. She had lost a few pounds last winter and spring d/t C. difficile infection for which she has since regained her weight. She underwent CTA of the chest last night which demonstrated normal pulmonary arteries, and a stable ectatic 3.6 cm ascending aorta but a new right apical ground glass parenchymal lung opacifications. No pleural effusions and no adenopathy. Incidental findings included cardiomegaly, healed rib fractures of right 6th, 7th, 8th ribs. No acute fractures or suspicious osseous lesions and a simple right renal cyst. Dr. Albert Baez, emergency room attending spoke w/ Dr. Krish Staples, pulmonology at [facility] who advised that a bronchoscopy was not indicated urgently and recommended admission overnight observation at [facility] w/ initiation of antibiotics but if hemptysis continued and was worse then IR embolization may be appropriate. Since her admission she was started on Rocephin and Azithromycin and cough suppressants and has had no further hemoptysis since. She denies any chest pain or fever or chills and no purulent sputum. Ambulatory pulse oximetry was performed and she had no oxygen desaturation. At present time the patient will be discharged home w/ a short course of antibiotics w/ repeat CXR next week and close follow up w/ her PCP. It is recommended that patient have close follow up w/ pulmonary services for definitive bronchoscopy if the ground glass opacities do not resolve. Of note, patient previously saw Dr. Peggy Goff at [facility] in 2019 for prior abnormal CTA of chest from 05/26/19 which demonstrated emphysema and non-specific bilateral centrilobular nodules as well as the ectatic thoracic aorta. Patient followed up w/ [facility] cardiology regarding her chest pain and thoracic aorta and w/ DR. Goff regarding her COPD and her centrilobular lung nodules. He recommended follow up CT scan of the chest in 2019 and follow up office visit in 6 weeks. Due to COVID concerns her November 2019 appointment was canceled however she canceled her scheduled follow up in January 2020 with no further follow up arranged. Exam Narrative Exam Narrative: Thin elderly female who seems to be alert and oriented person place time circumstance in no respiratory distress. Lungs without expiratory wheezes or rhonchi she has some fine crackles at the right apex. Heart regular rate and rhythm without murmur rub or gallop No cervical supraclavicular or axillary lymphadenopathy Abdomen soft nontender no masses or bruits Objective Last Vital Signs Temp 36.8 C 09/07/20 11:35 Pulse 66 09/07/20 11:26 Resp 26 H 09/07/20 11:30 BP 153/91 H 09/07/20 11:27 Pulse Ox 98 09/07/20 07:20 Laboratory Results - last 24 hr 09/06/20 09/06/20 09/06/20 20:10 20:10 20:10 WBC RBC Hgb Hct MCV MCH MCHC RDW Plt Count MPV Immature Gran % Neutrophils % Lymphocytes % Monocytes % Eosinophils % Basophils % Nucleated RBC % Absolute Neutrophils Absolute Lymphocytes Absolute Monocytes Absolute Eosinophils Absolute Basophils PT 9.9 INR 1.0 APTT 24.1 Sodium 139 Potassium 3.8 Chloride 106 Carbon Dioxide 25.5 Anion Gap 7.5 BUN 28 H Creatinine 1.18 H Estimated GFR/1.73 m2 44.18 Glucose 131 H Calcium 8.7 Total Bilirubin 0.2 AST 16 ALT 22 Alkaline Phosphatase 119 H Total Protein 7.5 Albumin 4.0 COVID-19 Source SARS-CoV-2 (PCR) Influenza Type A (PCR) Influenza Type B (PCR) RSV (PCR) Patient ABO/Rh O Positive Antibody Screen Negative 09/06/20 09/06/20 20:10 20:20 WBC 7.92 RBC 3.92 L Hgb 12.7 Hct 38.1 MCV 97.2 H MCH 32.4 MCHC 33.3 RDW 13.1 Plt Count 286 MPV 9.2 Immature Gran % 0.3 Neutrophils % 60.1 Lymphocytes % 30.1 Monocytes % 6.8 Eosinophils % 2.1 Basophils % 0.6 Nucleated RBC % 0 Absolute Neutrophils 4.76 Absolute Lymphocytes 2.38 Absolute Monocytes 0.54 Absolute Eosinophils 0.17 Absolute Basophils 0.05 PT INR APTT Sodium Potassium Chloride Carbon Dioxide Anion Gap BUN Creatinine Estimated GFR/1.73 m2 Glucose Calcium Total Bilirubin AST ALT Alkaline Phosphatase Total Protein Albumin COVID-19 Source Nasopharynx SARS-CoV-2 (PCR) Negative Influenza Type A (PCR) Negative Influenza Type B (PCR) Negative RSV (PCR) Negative Patient ABO/Rh Antibody Screen
--- NOTE | 2020-09-07 13:04 | DSE_ITS ---
DS: Diagnosis Discharge Diagnosis (1) Hemoptysis: Status: Acute Asessment and Plan: No further hemoptysis since admission from the emergency department last night. Patient remains afebrile and not hypoxemic. Patient is desiring to return home. She will be discharged home on Tessalon Perles 200 mg p.o. 3 times daily for cough suppression and a short course of Levaquin 750 mg p.o. daily x7 days. Recommend patient have a follow-up with both her PCP Dr. Gamez next week and w/ Dr. Goff, pulmonology in the next 2 weeks. Patient to have follow up CXR next week. (2) Right upper lobe pulmonary infiltrate: Status: Acute Asessment and Plan: as above Discharge Plan Disposition Patient Disposition: HOME Condition: Improving Discharge Details Reason For Visit: HEMOPTYSIS Admit Date/Time: 09/06/20 23:56 Admit Provider: Vikash Balbuena Attending Provider: Vikash Balbuena Primary Care Provider: Winifred Gamez Hospital Course Hospital Course: Patient was admitted through the emergency department last night by Dr. Vikash Balbuena for evaluation and observation for hemoptysis. Patient is a 79-year-old female patient of Dr. Winifred Gamez @ [facility] in [facility] who has mild COPD, HTN, mild cognitive impairment, meningioma, RLS and aortic ectasia who presented to the ER yesterday evening d/t hemoptysis. She says that this started on and was just a tinge of blood but on she had two more episodes w/ the last one on night in the evening and that she says filled two handfuls of blood. She denies any fever, rigors, night sweats. She had lost a few pounds last winter and spring d/t C. difficile infection for which she has since regained her weight. She underwent CTA of the chest last night which demonstrated normal pulmonary mary lou deon, and a stable ectatic 3.6 cm ascending aorta but a new right apical ground glass parenchymal lung opacifications. No pleural effusions and no adenopathy. Incidental findings included cardiomegaly, healed rib fractures of right 6th, 7th, 8th ribs. No acute fractures or suspicious osseous lesions and a simple right renal cyst. Dr. Albert Baez, emergency room attending spoke w/ Dr. Krish Staples, pulmonology at [facility] who advised that a bronchoscopy was not indicated urgently and recommended admission overnight observation at [facility] w/ initiation of antibiotics but if hemptysis continued and was worse then IR embolization may be appropriate. Since her admission she was started on Rocephin and Azithromycin and cough suppressants and has had no further hemoptysis since. She denies any chest pain or fever or chills and no purulent sputum. Ambulatory pulse oximetry was performed and she had no oxygen desaturation. At present time the patient will be discharged home w/ a short course of antibiotics w/ repeat CXR next week and close follow up w/ her PCP. It is recommended that patient have close follow up w/ pulmonary services for definitive bronchoscopy if the ground glass opacities do not resolve. Of note, patient previously saw Dr. Peggy Goff at [facility] in 2019 for prior abnormal CTA of chest from 05/26/19 which demonstrated emphysema and non-specific bilateral centrilobular nodules as well as the ectatic thoracic aorta. Patient followed up w/ [facility] cardiology regarding her chest pain and thoracic aorta and w/ DR. Goff regarding her COPD and her centrilobular lung nodules. He recommended follow up CT scan of the chest in 2019 and follow up office visit in 6 weeks. Due to COVID concerns her November 2019 appointment was canceled however she canceled her scheduled follow up in January 2020 with no further follow up arranged. Patient will be discharged on a short course of oral antibiotics (Levaquin 750 mg daily x 7days) with follow up chest xray in 10 days to 2 weeks and follow up with her PCP. Patient should be referred back to Dr. Goff for definitive workup of her hemoptysis including bronchoscopy w/ BAL and/or biopsies. Patient is advised to return to the ER if she has worsening hemoptysis. Home Meds and New Rx's Prescriptions: New benzonatate 200 mg capsule 200 mg PO TID PRNQty: 30 RF: 0 levofloxacin 750 mg tablet 750 mg PO DAILY 7 Days Qty: 7 RF: 0 Continued lisinopril 20 mg Tablet 20 mg PO DAILY RF: 0 hydrocodone-acetaminophen [[place]] 7.5-325 mg Tablet 7.5 tab PO PRN PRNRF: 0 oxybutynin chloride 5 mg Tablet 10 mg PO BID RF: 0 fluticasone propion-salmeterol [Advair Diskus] 100-50 mcg/dose Blister With Device 1 inh INHALATION BID RF: 0 diltiazem HCl [Cartia XT] 120 mg Capsule,Extended Release 24hr 120 mg PO DAILY RF: 0 dicyclomine 10 mg Capsule 20 mg PO TID RF: 0 Discharge Instructions Instructions: Hemoptysis (GEN) Referrals: Winifred Gamez [Primary Care Provider] - (call the office on Wednesday for follow up next week) Grace Goff [ NON-[facility] STAFF PHYSICIAN] - (call the office on Wednesday for follow up in the next 2 weeks) Activity:: Activity as Tolerated Equipment/Supplies:: No Equipment Needed Diet:: As Tolerated Discharge Orders Discharge Orders: Discharge Order (Routine); Ordered 09/07/20 Ordered By: Carlin Vuong Other Ambulatory Orders: XR chest complete multi view (Routine) Location: None Selected Ordered By: Carlin Vuong DS: Summary Status at Discharge Functional status at discharge: independent ambulation Overall status at discharge: patient is back to baseline Mental Status: mental status grossly normal Speech and Movement: speech and movement normal Mood: congruent mood Affect: normal affect Exam Narrative Exam Narrative: Thin elderly female who seems to be alert and oriented person place time circumstance in no respiratory distress. Lungs without expiratory wheezes or rhonchi she has some fine crackles at the right apex. Heart regular rate and rhythm without murmur rub or gallop No cervical supraclavicular or axillary lymphadenopathy Abdomen soft nontender no masses or bruits Psych Mental Status: mental status grossly normal Speech and Movement: speech and movement normal Mood: congruent mood Affect: normal affect DS: Data Vitals/I&O Vitals and I&O: Vital Signs Temperature 36.8 C 09/07/20 11:35 Temperature Source Temporal Artery Scan 09/07/20 11:35 Pulse 66 09/07/20 11:26 Pulse 95 H 09/07/20 11:30 Respiratory Rate 26 H 09/07/20 11:30 Respiratory Effort Non-Labored 09/07/20 11:35 Respiratory Depth Shallow 09/07/20 11:35 Respiratory Pattern Normal 09/07/20 11:35 Blood Pressure 153/91 H 09/07/20 11:27 Blood Pressure Mean 106 09/07/20 11:27 Blood Pressure Position Sitting 09/07/20 11:35 Pulse Oximetry 98 09/07/20 07:20 Oxygen Delivery Method Room Air 09/07/20 11:35 Oxygen Flow Rate 0 09/07/20 11:35 Pain Level 0 09/07/20 11:35 Intake & Output 09/06/20 09/07/20 09/07/20 23:59 11:59 23:59 Intake Total 50 / 50 1971.667 / 2811.667 840 / 2811.667 Output Total 1250 / 1250 Balance 50 / 50 721.667 / 1561.667 840 / 1561.667 Weight 58.967 kg 63 kg Intake: IV 50 / 50 1051.667 / 1051.667 Oral 920 / 1760 840 / 1760 Output: Urine 1050 / 1050 Stool 200 / 200 Other: Urine Color Yellow Urine Appearance Clear Urine Odor Normal Comment Mixed with stool. Stool Occult Blood Negative Stool Size Moderate Stool Characteristics Liquid Brown Emesis Description Bright Red Blood Voiding Methods Bedside Commode Data Completed and Pending Labs on day of discharge: Labs from last 24 hours 09/06/20 09/06/20 09/06/20 20:20 20:10 20:10 WBC 7.92 RBC 3.92 L Hgb 12.7 Hct 38.1 MCV 97.2 H MCH 32.4 MCHC 33.3 RDW 13.1 Plt Count 286 MPV 9.2 Immature Gran % 0.3 Neutrophils % 60.1 Lymphocytes % 30.1 Monocytes % 6.8 Eosinophils % 2.1 Basophils % 0.6 Nucleated RBC % 0 Absolute Neutrophils 4.76 Absolute Lymphocytes 2.38 Absolute Monocytes 0.54 Absolute Eosinophils 0.17 Absolute Basophils 0.05 PT INR APTT Sodium 139 Potassium 3.8 Chloride 106 Carbon Dioxide 25.5 Anion Gap 7.5 BUN 28 H Creatinine 1.18 H Estimated GFR/1.73 m2 44.18 Glucose 131 H Calcium 8.7 Total Bilirubin 0.2 AST 16 ALT 22 Alkaline Phosphatase 119 H Total Protein 7.5 Albumin 4.0 COVID-19 Source Nasopharynx SARS-CoV-2 (PCR) Negative Influenza Type A (PCR) Negative Influenza Type B (PCR) Negative RSV (PCR) Negative Patient ABO/Rh Antibody Screen 09/06/20 09/06/20 20:10 20:10 WBC RBC Hgb Hct MCV MCH MCHC RDW Plt Count MPV Immature Gran % Neutrophils % Lymphocytes % Monocytes % Eosinophils % Basophils % Nucleated RBC % Absolute Neutrophils Absolute Lymphocytes Absolute Monocytes Absolute Eosinophils Absolute Basophils PT 9.9 INR 1.0 APTT 24.1 Sodium Potassium Chloride Carbon Dioxide Anion Gap BUN Creatinine Estimated GFR/1.73 m2 Glucose Calcium Total Bilirubin AST ALT Alkaline Phosphatase Total Protein Albumin COVID-19 Source SARS-CoV-2 (PCR) Influenza Type A (PCR) Influenza Type B (PCR) RSV (PCR) Patient ABO/Rh O Positive Antibody Screen Negative Imaging CT scan - chest: Radiologist's impression: IMPRESSION: 1. Right upper lobe pneumonia. 2. Calcified atherosclerotic disease with ectasia of thoracic aorta. 3. Mild multichamber cardiomegaly. 4. Right renal simple cyst. No further imaging required. Dictated and Authenticated by: Vikash Greco MD. [facility] Medical History (Updated 09/07/20 @ 11:18 by Carlin Vuong) C. 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 from right neck HTN (hypertension) Lumbar spondylosis Meningioma Restless leg syndrome Thoracic aortic ectasia Urinary frequency Surgical History (Updated 09/07/20 @ 11:15 by Carlin Vuong) History of total right hip arthroplasty (~2014) History of total right knee replacement (~2017) S/P appendectomy Family History (Updated 09/07/20 @ 11:23 by Carlin Vuong) Mother Leukemia Hypertension Father Bladder cancer Emphysema of lung Social History Smoking/Tobacco Use Status: Former Tobacco Use Smoking risk assessment performed?: Yes Alcohol Intake: never Drug use: Never Substance use type: does not use Details: stopped smoking 20 years ago Do you feel safe at home: Yes Do you feel safe in your relationship?: Yes
--- NOTE | 2020-09-07 17:21 | PDOC.CMDIS ---
- If Service Date Differs Date of service: 09/07/20 Time of Service: 17:21 LACE Index Scoring Tool - Questions: Length of Stay (in days): 1 Acuity (Admit via E.D.?): Yes Comorbidities: Chronic Pulmonary Disease E.D. Visits: 1 - Answers: Total Score: 7 Risk of Readmission: Low Risk Care Management Discharge Reason for Hospitalization: hemoptysid Discharge Plan: Rocio will be discharged home with no new services. She will folow up with her PCP and transport with family. She denies the need for home services at this time. Patient/Family Education Needs: Discharge plan, limitations, follow up and Ask Me Three
== END 2020-09-07 13:19 | disposition home or self-care (01) ==
LOC: ER 09-07 00:08 → ICU 09-07 00:44
PROVIDERS: Admitting Provider General Practice; Emergency Provider Emergency Medicine; PCP Family Medicine; Visit Provider General Practice
DX: R04.2 Hemoptysis (principal); R91.8 Other nonspecific abnormal finding of lung field; I10 Essential (primary) hypertension; Z66 Do not resuscitate; J44.9 Chronic obstructive pulmonary disease, unspecified; R35.0 Frequency of micturition; Z87.891 Personal history of nicotine dependence; G31.84 Mild cognitive impairment of uncertain or unknown etiology; G25.81 Restless legs syndrome; I77.810 Thoracic aortic ectasia
CPT/HCPCS: 36415; 71275; 80053; 86850; 86900; 86901; 93005; 94618; 96365; 96367; 99222; 99226; 99238; 99285; 85025; 85610; 85730; 93010; 99217; 99219; G0378; J0456; J0696; J3490

== ENCOUNTER 2021-01-10 06:49 | Emergency (ER) | payer MEDICARE, OTHER, SELFPAY ==
[2021-01-10 07:05] VITALS: BP 162/77; PULSE 72; RESP 18; TEMP 36.8; O2SAT 98
--- NOTE | 2021-01-10 07:39 | ED.GENADUL_ITS ---
Discharge Plan Disposition Patient Disposition: HOME Condition: Improving Discharge Details Clinical Impression: Right rib fracture Primary Care Provider: Winifred Gamez ED Provider: Yadira Hunt Home Meds and New Rx's Prescriptions: New hydrocodone-acetaminophen 7.5-325 mg tablet 1 tab PO Q8H PRN (Reason: pain) Qty: 10 RF: 0 lidocaine [Lidoderm] 5 % adhesive patch,medicated 1 patch TP DAILY PRN (Reason: pain) Qty: 15 RF: 0 Continued lisinopril 20 mg Tablet 20 mg PO DAILY RF: 0 hydrocodone-acetaminophen [[place]] 7.5-325 mg Tablet 7.5 tab PO PRN PRNRF: 0 oxybutynin chloride 5 mg Tablet 10 mg PO BID RF: 0 fluticasone propion-salmeterol [Advair Diskus] 100-50 mcg/dose Blister With Device 1 inh INHALATION BID RF: 0 diltiazem HCl [Cartia XT] 120 mg Capsule,Extended Release 24hr 120 mg PO DAILY RF: 0 dicyclomine 10 mg Capsule 20 mg PO TID RF: 0 benzonatate 200 mg capsule 200 mg PO TID PRNQty: 30 RF: 0 Discharge Instructions Instructions: Rib Fracture (ED) Additional Instructions: Rest, ice, and elevate the affected area as much as possible. Your prescriptions has been sent electronically to your pharmacy. Call the pharmacy to make sure your prescriptions are ready before pickup. Take the prescriptions as directed. You can also take 600 mg of ibuprofen every 6-8 hours as needed and directed for pain for the next few days. Use the incentive spirometer as directed to encourage you to take deep breaths to prevent pneumonia. Follow-up with your primary care doctor in 1 week. Return to the emergency department with any worsening or new concerning symptoms. Discharge Data Discharge Physician: Yadira Hunt Medical Decision Making 80-year-old female with history of hypertension COPD presents with right lower rib pain after slipping off a rock wall striking her chest on the wall yesterday. She has tenderness and ecchymosis noted to the right lateral inferior anterior and posterior ribs. There is no crepitus, step-off and lungs are clear with soft nontender abdomen. She has no other evidence of injury including no evidence of head trauma, abdominal ecchymosis, extremity deformity or pain with range of motion, or midline spinal tenderness. SPECT most likely rib fracture versus contusion. An IV was placed by nurse. We will give a dose of Toradol IV, oxycodone p.o. and Lidoderm patch. She states she cannot take morphine due to psychosis but has tolerated hydrocodone in the past. X-ray reviewed and note an acute nondisplaced fracture of the posterior lateral right 10th rib. No pneumothorax noted. Patient reassessed and she feels much better and feels good to go home. She was given an incentive spirometer. Patient has [place] at home that she takes as needed per the pain clinic for costochondritis. She states she has a few of these at home but may need additional pain medication. A prescription for [place] was sent electronically to her pharmacy in addition to Lidoderm patches. Advised to follow up with the primary care doctor for re-evaluation. Usual and customary return precautions given prior to discharge. Medical Records Medical records reviewed: Yes I reviewed the patient's medical records. Imaging Data Radiologic Study: Radiologist's impression: XR RIBS RT W PA LAT CHEST CLINICAL HISTORY: s/p fall, pain R lower lateral ribs, r/o acute fx TECHNIQUE: 2D digital imaging was performed. COMPARISON: CR,XR XR PORTABLE CHEST AP from 05/26/2019 FINDINGS: MEDIASTINUM: Normal. HEART: Normal. PULMONARY VASCULATURE: There is tortuosity and atherosclerosis of the thoracic aorta. Pulmonary vasculature is otherwise unremarkable. LUNGS: Clear. PLEURAL SPACE: No pleural effusion or pneumothorax. BONE:Normal. RIGHT RIBS: There are old healed right 6th, 7th and 8th rib fracture. There is an acute nondisplaced fracture of the right 10th rib. OTHER FINDINGS:Normal. IMPRESSION: 1. No acute pulmonary findings. 2. Acute nondisplaced fracture of the posterolateral aspect of the right 10th rib. HPI General Mode of arrival: ambulatory . Date/Time Provider Initiated Documentation: 01/10/21 07:38 . Limitations to Documentation: no limitations . Information obtained by: patient . HPI Narrative: Patient is an 80-year-old female with a history of COPD, hypertension who presents to the ED with a complaint of right lower rib pain after fall off a rock wall striking her chest on the wall yesterday. Patient states she was gardening and weeding when she slipped off a rock while striking the right lower ribs on the wall. She denies any head injury, neck pain, back pain, chest pain, abdominal pain, extremity pain. She took Aleve last night but has not taken anything for pain today. She denies any difficulty breathing, vomiting. Related Data Home Medications Medication Instructions Recorded Confirmed hydrocodone-acetaminophen [[place]] 7.5 tab PO PRN PRN 05/26/19 09/06/20 lisinopril 20 mg PO DAILY 05/26/19 01/10/21 oxybutynin chloride 10 mg PO BID 05/26/19 09/06/20 dicyclomine 20 mg PO TID 09/06/20 09/07/20 diltiazem HCl [Cartia XT] 120 mg PO DAILY 09/06/20 01/10/21 fluticasone propion-salmeterol 1 inh INHALATION BID 09/06/20 09/06/20 [Advair Diskus] benzonatate 200 mg PO TID PRN #30 cap 09/07/20 hydrocodone-acetaminophen 1 tab PO Q8H PRN #10 tab 01/10/21 lidocaine [Lidoderm] 1 patch TP DAILY PRN #15 each 01/10/21 Previous Rx's Medication Instructions Recorded benzonatate 200 mg PO TID PRN #30 cap 09/07/20 hydrocodone-acetaminophen 1 tab PO Q8H PRN #10 tab 01/10/21 lidocaine [Lidoderm] 1 patch TP DAILY PRN #15 each 01/10/21 Allergies Allergy/AdvReac Type Severity Reaction Status Date / Time morphine Allergy Severe Psychosis Unverified 01/10/21 07:09 Penicillins Allergy Intermediate Hives Unverified 01/10/21 07:09 General Stated Complaint: Chest/Rib CASEY: 3 Review of Systems All systems reviewed & are unremarkable except as noted in HPI and below Constitutional Constitutional: Reports as per HPI, Denies chills and Denies fever(s) Eyes Eyes: Denies blurry vision ENT Ears, Nose, Mouth, and Throat: Denies dizziness, Denies sore throat and Denies throat swelling Cardiovascular Cardiovascular: Denies chest pain and Denies dyspnea Respiratory Respiratory: Denies cough and Denies dyspnea Gastrointestinal Gastrointestinal: Denies abdominal pain, Denies diarrhea and Denies vomiting Genitourinary Genitourinary: Denies hematuria and Denies dysuria Musculoskeletal Musculoskeletal: Denies back pain and Denies numbness Comments: R right pain Integumentary/Breasts Skin/Breast: Denies lesions and Denies rash Neurologic Neurologic: Denies dizziness, Denies localized weakness and Denies numbness Allergic/Immunologic Allergic/Immunologic: Denies throat swelling [facility] Medical History (Updated 01/10/21 @ 09:38 by Yadira Hunt DO) C. 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) S/P appendectomy Family History (Updated 09/07/20 @ 11:23 by Carlin Vuong) Mother Leukemia Hypertension Father Bladder cancer Emphysema of lung Social History Smoking/Tobacco Use Status: Former Tobacco Use Smoking risk assessment performed?: Yes Alcohol Intake: never Drug use: Never Substance use type: does not use Details: stopped smoking 20 years ago Do you feel safe at home: Yes Do you feel safe in your relationship?: Yes Exam Const General: cooperative, healthy appearing and no acute distress [facility] Head: normal to inspection Face and sinus: normal facial exam Eyes General: appearance normal, both eyes and all related structures EOM: EOM intact bilaterally Neck Neck: normal visual inspection and No submandibular swelling Lymphatic: no lymphadenopathy noted Chest Chest: no tenderness Chest/axillae images: 1. Tenderness to palpation and ecchymosis noted to right lateral inferior ribs extending anteriorly to posteriorly. No crepitus, open wounds, step-off. Resp Effort & Inspection: normal respiratory effort and able to speak in complete sentences Auscultation: clear to auscultation bilaterally Cardio Rate: regular rate Rhythm: regular rhythm GI Inspection: normal to inspection and no abdominal wall ecchymosis Palpation: soft, not firm, not rigid and nontender Auscultation: hypoactive bowel sounds Back/Spine/Pelvis Cervical Spine: No cervical spinal tenderness Thoracic/Lumbar Spine: thoracic and lumbar spine normal to inspection, No thoracic spinal tenderness and No lumbar spinal tenderness Pelvis: no pain with anterior-posterior compression Skin General skin exam: no rashes or lesions noted Neuro General: patient alert, patient awake and patient oriented x3 Cognition: normal cognition Speech: speech normal Motor: muscle tone normal throughout Sensory Exam: no sensory deficits noted Extrem General: normal to inspection, full ROM, capillary refill normal, no calf tende rness bilaterally and no edema Other: Full range of motion of bilateral upper and lower extremities without pain or evidence of trauma or deformity. Psych Appearance: grossly normal Mental Status: mental status grossly normal Speech and Movement: speech and movement normal Affect: normal affect Course Vital Signs Vital signs: Vital Signs Temperature 98.2 F 01/10/21 07:05 Pulse 72 01/10/21 07:05 Respiratory Rate 18 01/10/21 07:05 Blood Pressure 162/77 H 01/10/21 07:05 Pulse Oximetry 98 01/10/21 07:05 Temperature 98.2 F 01/10/21 07:05 Temperature Source Temporal Artery Scan 01/10/21 07:05 Pulse 72 01/10/21 07:05 Respiratory Rate 18 01/10/21 07:05 Respiratory Effort Non-Labored 01/10/21 07:10 Respiratory Depth Shallow 01/10/21 07:10 Respiratory Pattern Normal 01/10/21 07:10 Blood Pressure 162/77 H 01/10/21 07:05 Blood Pressure Position Sitting 01/10/21 07:05 Pulse Oximetry 98 01/10/21 07:05 Oxygen Delivery Method Room Air 01/10/21 07:05 Oxygen Flow Rate 0 01/10/21 07:05 Pain Level 10 01/10/21 07:10
[2021-01-10] MEDS: Lidocaine 5% Patch 1 PATCH TP (08:02)
[2021-01-10] MEDS: oxyCODONE 10 MG TAB PO (08:03)
[2021-01-10] MEDS: Ketorolac 30 MG/ML VIAL IVP (08:03)
--- NOTE | 2021-01-10 08:29 | DI.RAD_ITS ---
Exam(s) XR RIBS RT W PA LAT CHEST EXAM: XR RIBS RT W PA LAT CHEST CLINICAL HISTORY: s/p fall, pain R lower lateral ribs, r/o acute fx TECHNIQUE: 2D digital imaging was performed. COMPARISON: CR,XR XR PORTABLE CHEST AP from 05/26/2019 FINDINGS: MEDIASTINUM: Normal. HEART: Normal. PULMONARY VASCULATURE: There is tortuosity and atherosclerosis of the thoracic aorta. Pulmonary vasc ulature is otherwise unremarkable. LUNGS: Clear. PLEURAL SPACE: No pleural effusion or pneumothorax. BONE:Normal. RIGHT RIBS: There are old healed right 6th, 7th and 8th rib fracture. There is an acute nondisplaced fracture of the right 10th rib. OTHER FINDINGS:Normal. IMPRESSION: 1. No acute pulmonary findings. 2. Acute nondisplaced fracture of the posterolateral aspect of the right 10th rib. DATA REPOSITORY: RADIATION DOSE DELIVERED:
[2021-01-10 09:29] VITALS: BP 172/83; PULSE 73; RESP 18; O2SAT 98
== END 2021-01-10 09:57 | disposition home or self-care (01) ==
PROVIDERS: Emergency Provider Physician Assistant; PCP Family Medicine
DX: S22.31XA Fracture of one rib, right side, initial encounter for closed fracture (principal); W01.198A Fall on same level from slipping, tripping and stumbling with subsequent striking against other object, initial encounter
CPT/HCPCS: 96374; 96375; 99284; 71046; 71100; 99283; J1885

== ENCOUNTER 2021-02-03 13:07 | Emergency (ER) | payer MEDICARE, OTHER, SELFPAY ==
[2021-02-03 13:11] VITALS: BP 169/89; PULSE 70; RESP 16; TEMP 36.4; O2SAT 99
--- NOTE | 2021-02-03 14:09 | DI.RAD_ITS ---
Exam(s) XR FINGER LT INDEX EXAM: XR FINGER LT INDEX CLINICAL HISTORY: pip swelling and pain, abscess, lymphangitis. TECHNIQUE: 2D digital imaging was performed. COMPARISON: No exams were available for comparison FINDINGS: There is no evidence of acute fracture. Significant degenerative changes are noted at the metacarpop halangeal joint of the 3rd-middle finger. Mild subluxation at this level also evident. Significant degenerative changes also evident in the interphalangeal joints, particularly the DIP denita nts.. There is no obvious radiopaque foreign body. IMPRESSION: DATA REPOSITORY: RADIATION DOSE DELIVERED:
[2021-02-03] MEDS: ceFAZolin 1,000 MG VIAL 1000 MG IM (14:51)
--- NOTE | 2021-02-03 15:02 | W.ED.GENAD ---
Discharge Plan Disposition Patient Disposition: HOME Condition: Good Discharge Details Clinical Impression: Cellulitis Primary Care Provider: Winifred Gamez ED Provider: Stephania Dumas Home Meds and New Rx's Prescriptions: New cephalexin 500 mg capsule 500 mg PO Q6H 10 Days Qty: 40 RF: 0 No Action lisinopril 20 mg Tablet 20 mg PO DAILY RF: 0 hydrocodone-acetaminophen [[place]] 7.5-325 mg Tablet 7.5 tab PO PRN PRNRF: 0 fluticasone propion-salmeterol [Advair Diskus] 100-50 mcg/dose Blister With Device 1 inh INHALATION BID RF: 0 diltiazem HCl [Cartia XT] 120 mg Capsule,Extended Release 24hr 120 mg PO DAILY RF: 0 hydrocodone-acetaminophen 7.5-325 mg tablet 1 tab PO Q8H PRN (Reason: pain) Qty: 10 RF: 0 lidocaine [Lidoderm] 5 % adhesive patch,medicated 1 patch TP DAILY PRN (Reason: pain) Qty: 15 RF: 0 Discharge Instructions Instructions: Cellulitis (ED) Additional Instructions: Call Ortho for follow-up Take the antibiotic as prescribed, you are getting the first dose today Wear your splint Call the orthopedic listed below and return earlier should you have new or worsening complaints including spreading redness, fever, worsening pain Referrals: Roberto Bartlett MD [ [facility] STAFF PHYSICIAN] - Discharge Data Discharge Date/Time-TO BE ENTERED AT DEPARTURE: 02/03/21 15:07 Medical Decision Making Case discussed with Dr. Bartltet who will see patient in the next several days, patient is feeling markedly improved after incision and drainage of affected region Placed on Keflex and 1 g of Ancef administered intramuscularly, will need close outpatient reevaluation Tylenol as needed for pain Tetanus updated Return precautions discussed and patient expressed understanding afebrile, nontoxic, healthy in appearance Very superficial incision given location Post incision and drainage, symptomatic improvement with improved range of motion Differential Diagnosis Differential Diagnosis: Abscess, cellulitis, septic arthritis, lymphangitis HPI General Date/Time Provider Initiated Documentation: 02/03/21 13:30. Limitations to Documentation: no limitations. Information obtained by: patient. HPI Narrative: This 80-year-old female presents with left second digit pain and swelling which is worsened over the course of the past week. She had a laceration obtained a week ago. She denies any fever or chills. She now has redness extending down to her palm. She denies any strength or sensation changes. She has pain with flexion extension of the joint. Related Data Home Medications Medication Instructions Recorded Confirmed hydrocodone-acetaminophen [[place]] 7.5 tab PO PRN PRN 05/26/19 02/03/21 lisinopril 20 mg PO DAILY 05/26/19 02/03/21 diltiazem HCl [Cartia XT] 120 mg PO DAILY 09/06/20 02/03/21 fluticasone propion-salmeterol 1 inh INHALATION BID 09/06/20 02/03/21 [Advair Diskus] hydrocodone-acetaminophen 1 tab PO Q8H PRN #10 tab 01/10/21 02/03/21 lidocaine [Lidoderm] 1 patch TP DAILY PRN #15 each 01/10/21 02/03/21 cephalexin 500 mg PO Q6H 10 Days #40 cap 02/03/21 Previous Rx's Medication Instructions Recorded hydrocodone-acetaminophen 1 tab PO Q8H PRN #10 tab 01/10/21 lidocaine [Lidoderm] 1 patch TP DAILY PRN #15 each 01/10/21 cephalexin 500 mg PO Q6H 10 Days #40 cap 02/03/21 Allergies Allergy/AdvReac Type Severity Reaction Status Date / Time morphine Allergy Severe Psychosis Unverified 02/03/21 13:19 Penicillins Allergy Intermediate Hives Unverified 02/03/21 13:19 General Stated Complaint: Cellulitis CASEY: 3 Review of Systems Narrative: Review of systems negative aside from indicated in HPI [facility] Medical History (Updated 02/03/21 @ 14:38 by PIYUSH Campa) C. 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) S/P appendectomy Family History (Updated 09/07/20 @ 11:23 by Carlin Vuong) Mother Leukemia Hypertension Father Bladder cancer Emphysema of lung Social History Smoking/Tobacco Use Status: Former Tobacco Use Smoking risk assessment performed?: Yes Alcohol Intake: never Drug use: Never Substance use type: does not use Details: stopped smoking 20 years ago Do you feel safe at home: Yes Do you feel safe in your relationship?: Yes Exam Const General: cooperative, comfortable and no acute distress Resp Effort & Inspection: normal respiratory effort Cardio Rate: regular rate Extrem Hand/finger images: 1. Fluctuant erythematous region surrounding the joint, mildly diminished flexion, extension intact, brisk cap refill lymphangitis noted to distal palmar region adjacent to the index finger Course Vital Signs Vital signs: Vital Signs Temperature 36.4 C L 02/03/21 13:11 Pulse 70 02/03/21 13:11 Respiratory Rate 16 02/03/21 13:11 Blood Pressure 169/89 H 02/03/21 13:11 Pulse Oximetry 99 02/03/21 13:11 Temperature 36.4 C L 02/03/21 13:11 Temperature Source Temporal Artery Scan 02/03/21 13:11 Pulse 70 02/03/21 13:11 Respiratory Rate 16 02/03/21 13:11 Respiratory Effort Non-Labored 02/03/21 13:46 Blood Pressure 169/89 H 02/03/21 13:11 Blood Pressure Position Sitting 02/03/21 13:11 Pulse Oximetry 99 02/03/21 13:11 Oxygen Delivery Method Room Air 02/03/21 13:11 Oxygen Flow Rate 0 02/03/21 13:11 Pain Level 8 02/03/21 13:11 Procedures Abscess I/D Site: Hand Side (if applicable): Left Amount of anesthesia used (mL): 2 Technique: Incised with #11 Blade Amount of fluid expressed (mL): 3 Irrigation: Yes Packing used?: None
== END 2021-02-03 15:07 | disposition home or self-care (01) ==
PROVIDERS: Emergency Provider Physician Assistant; PCP Family Medicine
DX: L03.012 Cellulitis of left finger (principal)
CPT/HCPCS: 10060; 90471; 96372; 99284; 73140; 99283; J0690

== ENCOUNTER 2021-02-06 13:34 | Outpatient (CLI) | payer MEDICARE, OTHER, SELFPAY ==
--- NOTE | 2021-02-06 13:15 | DI.RAD_ITS ---
Exam(s) XR WRIST RT COMPLETE EXAM: XR WRIST RT COMPLETE CLINICAL HISTORY: R WRIST PAIN. TECHNIQUE: 2D digital imaging was performed. COMPARISON: CR XR FINGER LT INDEX from 02/03/2021 FINDINGS: There is deformity of the distal radius. There is a question of a a lucency seen extending transvers randall which could represent an acute fracture. Clinical correlation is recommended. There is widening of the scapholunate distance. There is narrowing of the radial carpal joint. Ther e are severe degenerative changes at the 1st carpal metacarpal joint. Soft tissues calcifications ar e seen medial to the radial styloid . There is also soft tissue swelling seen at the medial carpal r egion. IMPRESSION: Question of an acute fracture of the distal radius. Severe degenerative changes and scapholunate lig ament disruption. DATA REPOSITORY: RADIATION DOSE DELIVERED:
== END 2021-02-06 13:35 | disposition home or self-care (01) ==
LOC: DIORS 13:34
PROVIDERS: PCP Family Medicine; Referring Provider Student in an Organized Health Care Education/Training Program; Visit Provider Student in an Organized Health Care Education/Training Program
DX: S52.551A Other extraarticular fracture of lower end of right radius, initial encounter for closed fracture (principal); W19.XXXA Unspecified fall, initial encounter; M25.531 Pain in right wrist
CPT/HCPCS: 99213; 73110

== ENCOUNTER 2021-06-21 09:13 | Observation (INO) | payer MEDICARE, OTHER, SELFPAY ==
[2021-06-21] VITALS (10 sets, daily range): BP systolic 139–172; BP diastolic 80–85; PULSE 73–85; RESP 16–18; TEMP 35.7–36.7; O2SAT 95–99; BMI 19.5
--- NOTE | 2021-06-21 09:15 | DI.RAD_ITS ---
Exam(s) XR KNEE LT 3V AP,LAT,LANIE EXAM: XR KNEE LT 3V AP,LAT,LANIE CLINICAL HISTORY: fall on recent TKA. TECHNIQUE: 2D digital imaging was performed. COMPARISON: No exams were available for comparison FINDINGS: Three views of the left knee reveal soft tissue swelling anteriorly, somewhat difficult to evaluate b ecause of overlying bandage material. Components of the prosthesis are in satisfactory position and alignment. No fracture or loosening evident. Recommend repeating the lateral view without bandage material on to determine if there is air in the subcutaneous tissues. IMPRESSION: DATA REPOSITORY: RADIATION DOSE DELIVERED:
--- NOTE | 2021-06-21 09:44 | W.ED.GENAD ---
Discharge Plan Disposition Patient Disposition: HOME Condition: Good Discharge Details Clinical Impression: Surgical wound dehiscence Primary Care Provider: Winifred Gamez ED Provider: Nayely Zazueta Discharge Data Discharge Date/Time-TO BE ENTERED AT DEPARTURE: 06/21/21 12:31 Medical Decision Making <PIYUSH Parsons - Last Filed: 06/22/21 19:41> Patient is a pleasant 80 year old female presenting today, brought in by her friend, with c/c of open incision to left knee. She reports that she underwent a left total knee replacement on May 12 of this year. Had this completed at [facility] with Dr. Rowan. States that she has been healing quite well. However, this morning when she was cleaning her bed she accidentally tripped and landed on the left knee. Immediately noted incision was open. She denies any pain. Denies other injury the time of the incident. Did not strike her head, no loss of consciousness. Tetanus was updated in January. On exam, patient appears nontoxic. Incision is open along total length. No active bleeding. No surrounding erythema, warmth, drainage or pain. Small effusion. No pain elsewhere about hte knee. 2+ distal pulses. Sensation intact. I do not note violation of the joint capsule. Appears to only affect the skin with deep structures intact. Gauze over the wound. Will obtain x-ray and consult with orthopedics. Consulted with Dr. Bartlett. He advised Betadine soaked gauze over the wound. Agrees with plan for x-ray. He did advise trying to contact the patient's original surgeon but is happy to assist if needed. Patient is requesting pain medication. She states that she has had as needed Dilaudid p.o. for postoperative pain and is requesting this. Has morphine as a listed allergy but did well with the PO dilaudid. Will also obtain rapid covid. Wound gently cleansed and covered the Betadine. X-ray reviewed by myself. I did not note any free air in the joint, evidence to suggest loosening of the hardware. Hardware in good alignment. Still awaiting call back from [facility] staff. Patient would prefer to have any surgical intervention completed here. Will speak with Dr. Bartlett again. Dr. Bartlett agrees to surgical intervention followed by observation time here. Request 2 g of cefazolin IV. Patient has remained n.p.o. while here. <Keon Perez MD - Last Filed: 06/21/21 14:29> Patient seen, examined, and discussed with PIYUSH Zazueta. I agree with treatment plan as discussed/documented. HPI <PIYUSH Parsons - Last Filed: 06/22/21 19:41> General Mode of arrival: wheelchair. Date/Time Provider Initiated Documentation: 06/21/21 09:18. Limitations to Documentation: no limitations. Information obtained by: patient, family and RN notes reviewed. History of Present Illness 80 year old F presents to the emergency department with the chief complaint of open postoperaive incision, described as mild (patient denies any pain currently), and is localized to the left and lower extremity. Patient reports no radiation. Patient started experiencing this minute(s) and it has been constant. No relieving factors improve symptom(s), No exacerbating factors reported . Patient notes no other symptoms.. Patient did receive the following treatments prior to arrival, none Related Data Home Medications Medication Instructions Recorded Confirmed lisinopril 20 mg PO DAILY 05/26/19 06/21/21 diltiazem HCl [Cartia XT] 120 mg PO DAILY 09/06/20 06/21/21 fluticasone propion-salmeterol 1 inh INHALATION BID 09/06/20 06/21/21 [Advair Diskus] lidocaine [Lidoderm] 1 patch TP DAILY PRN #15 each 01/10/21 06/21/21 acetaminophen 500 mg PO Q6H PRN PRN #40 tab 06/21/21 celecoxib 200 mg PO DAILY #30 cap 06/21/21 cephalexin 500 mg PO TID #6 cap 06/21/21 hydromorphone 2 mg PO Q8H PRN PRN #5 tab 06/21/21 Previous Rx's Medication Instructions Recorded lidocaine [Lidoderm] 1 patch TP DAILY PRN #15 each 01/10/21 acetaminophen 500 mg PO Q6H PRN PRN #40 tab 06/21/21 celecoxib 200 mg PO DAILY #30 cap 06/21/21 cephalexin 500 mg PO TID #6 cap 06/21/21 hydromorphone 2 mg PO Q8H PRN PRN #5 tab 06/21/21 Allergies Allergy/AdvReac Type Severity Reaction Status Date / Time morphine Allergy Severe Psychosis Unverified 06/21/21 09:33 Penicillins Allergy Intermediate Hives Unverified 06/21/21 09:33 General Stated Complaint: Orthopedic CASEY: 3 Review of Systems <PIYUSH Parsons - Last Filed: 06/22/21 19:41> Constitutional Constitutional: Reports as per HPI, Denies chills and Denies fever(s) Musculoskeletal Musculoskeletal: Reports as per HPI Integumentary/Breasts Skin/Breast: Reports as per HPI Neurologic Neurologic: Reports as per HPI, Denies sensory deficit and Denies paresthesias PFSH <PIYUSH Parsons - Last Filed: 06/22/21 19:41> Medical History C. 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) S/P appendectomy Family History Mother Leukemia Hypertension Father Bladder cancer Emphysema of lung Social History Smoking/Tobacco Use Status: Former Tobacco Use Smoking risk assessment performed?: Yes Alcohol Intake: current Alcohol Intake frequency: holidays/special occasions only Drug use: Never Substance use type: does not use Details: stopped smoking 20 years ago Do you feel safe at home: Yes Do you feel safe in your relationship?: Yes Exam <PIYUSH Parsons - Last Filed: 06/22/21 19:41> Const General: cooperative, healthy appearing, comfortable, no acute distress and well developed Nutritional Appearance: average body habitus and well nourished Orientation: alert and awake Resp Effort & Inspection: normal respiratory effort, able to speak in complete sentences and no respiratory distress Cardio Rate: regular rate Rhythm: regular rhythm Skin Trauma: laceration Neuro General: patient alert and patient awake Cognition: normal cognition Speech: speech normal Gait: normal gait Sensory Exam: no sensory deficits noted Extrem Knee images: 1. Area of laceration. Joint capsule is vusalized, appears to be intact. Small effusion. ROM not assessed. No calf tenderness. No LE edema. 2+ distal pulses. Sensation intact. Psych Appearance: grossly normal and well kempt Mental Status: mental status grossly normal Speech and Movement: speech and movement normal Course <PIYUSH Parsons - Last Filed: 06/22/21 19:41> Vital Signs Vital signs: Vital Signs Temperature 36.5 C 06/21/21 09:22 Pulse 85 06/21/21 09:22 Respiratory Rate 17 06/21/21 09:22 Blood Pressure 172/80 H 06/21/21 09:22 Pulse Oximetry 99 06/21/21 09:22 Temperature 36.5 C 06/21/21 09:22 Temperature Source Temporal Artery Scan 06/21/21 09:22 Pulse 85 06/21/21 09:22 Respiratory Rate 17 06/21/21 09:22 Blood Pressure 172/80 H 06/21/21 09:22 Blood Pressure Position Sitting 06/21/21 09:22 Pulse Oximetry 99 06/21/21 09:22 Oxygen Delivery Method Room Air 06/21/21 09:22 Oxygen Flow Rate 0 06/21/21 09:22 Pain Level 0 06/21/21 09:27
[2021-06-21] MEDS: HYDROmorphone 2 MG TAB PO (10:00)
[2021-06-21 10:19] LABS: Source Nasal/Nares
[2021-06-21] MEDS: Lactated Ringers 1,000 ML 200 ML IV (10:43)
[2021-06-21] MEDS: ceFAZolin 2 GM/50 ML BAG IVPB (11:07)
--- NOTE | 2021-06-21 11:09 | W.ANESPRE ---
General Info Date of Service Date Performed: 06/21/21 Height: 5 ft 7 in Weight: 56.699 kg Body Mass Index (BMI): 19.5 Meds Allergies and Home Medications Allergies Allergy/AdvReac Type Severity Reaction Status Date / Time morphine Allergy Severe Psychosis Unverified 06/21/21 09:33 Penicillins Allergy Intermediate Hives Unverified 06/21/21 09:33 Home Medication Medication Instructions Recorded lisinopril 20 mg PO DAILY 05/26/19 diltiazem HCl [Cartia XT] 120 mg PO DAILY 09/06/20 fluticasone propion-salmeterol 1 inh INHALATION BID 09/06/20 [Advair Diskus] lidocaine [Lidoderm] 1 patch TP DAILY PRN #15 each 01/10/21 acetaminophen 500 mg PO Q6H PRN PRN #40 tab 06/21/21 celecoxib 200 mg PO DAILY #30 cap 06/21/21 cephalexin 500 mg PO TID #6 cap 06/21/21 hydromorphone 2 mg PO Q8H PRN PRN #5 tab 06/21/21 Current Visit Medications: Current Medications Generic Name Dose Route Start Last Admin Trade Name Freq PRN Reason Stop Dose Admin Ringer's Solution 1,000 mls @ 200 mls/hr 06/21/21 10:45 06/21/21 10:43 IV 200 mls/hr INFUSION MIKE Administration Cefazolin Sodium/Dextrose 2 gm in 50 mls @ 100 mls/hr 06/21/21 11:00 06/21/21 11:07 Ancef Duplex IVPB 06/21/21 11:29 100 mls/hr NOW ONE Administration PFSH Active Problems Active Problems: Problem Status Onset Code Fracture of right distal radius S52.501A Right rib fracture S22.31XA Cellulitis L03.90 Chest pain R07.9 Hemoptysis R04.2 Right upper lobe pulmonary infiltrate R91.8 COPD (chronic obstructive pulmonary disease) J44.9 HTN (hypertension) I10 Medical History Medical History C. 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 from right neck HTN (hypertension) Lumbar spondylosis Meningioma Restless leg syndrome Thoracic aortic ectasia Urinary frequency Surgical History Surgical History History of total right hip arthroplasty (~2014) History of total right knee replacement (~2017) S/P appendectomy Tobacco Smoking/Tobacco Use Status: Former Tobacco Use Alcohol Alcohol Intake: current Alcohol intake frequency: holidays/special occasions only Substance Use Substance use: Never Substance use type: does not use Details: stopped smoking 20 years ago Vital Signs and Lab Results Vital Signs Most Recent Vital Signs in EMR: Most Recent Vital Signs Temp Pulse Resp BP Pulse Ox 36.7 C 85 18 168/80 H 98 06/21/21 10:44 06/21/21 10:44 06/21/21 10:44 06/21/21 10:44 06/21/21 10:44 Lab Results Blood Type / Crossmatch: No Data to Display Complete Blood Count: No Data to Display Complete Metabolic Panel: No Data to Display Liver Function Panel: No Data to Display Coagulation Panel: No Data to Display Cardiac Panel: No Data to Display Arterial Blood Gas: No Data to Display Venous Blood Gas: No Data to Display Pancreas Panel: No Data to Display Thyroid Panel: No Data to Display Infectious Disease: Coronavirus (COVID-19)(PCR) Negative (Negative) 06/21/21 10:06 06/21/21 Coronavirus 2019 Source Nasal/Nares 06/21/21 10:06 06/21/21 Blood Cultures: No Data to Display Toxicology Panel: No Data to Display Anesthesia Assessment and Plan Anesthesia History Personal History: No History of Anesthesia Complications Family History: No Family History of Anesthesia Complications Exercise Tolerance Exercise Tolerance: Metabolic Equivalents>4 Pertinent Negatives Pertinent Negatives: No Symptoms of GERD, No Major Cardiovascular Symptoms or Complaints, No Major Pulmonary Symptoms or Complaints and No History of CVA/TIA Cardiac & Pulmonary Exam Cardiac Exam: Normal S1/S2 Heart Sounds Pulmonary Exam: Clear Bilateral Breath Sounds Airway Exam Known Difficult Airway: No Mallampati Class: 2 Mouth Opening: Normal (> 3cm) Thyromental Distance: Greater than 3 cm Neck Range of Motion: Full ROM Neck Circumference: Normal Teeth Condition: Normal Dentition ASA Classification ASA Score: ASA 2 Emergency Case?: Yes NPO Status NPO Status: NPO Clears >2 hours, Solids >8 hours Anesthesia Plan Resuscitation Status: Full Code Anesthesia Technique: General Anesthesia Airway Planned: Natural Airway Monitors Used: Standard Monitors
[2021-06-21 11:10] LABS: COVID-19 PCR Negative (Negative)
--- NOTE | 2021-06-21 11:19 | OCONE_ITS ---
Date of service: 06/21/21 Time of Service: 11:19 History of Present Illness History of Present Illness Chief Complaint: Left Knee Surgical Wound Dehisence Narrative: Juliette is an 80-year-old active female who is status post left knee replaced by Dr. Mcdonald at [place] on May 02. She has been doing very well. She had no notable concerns. She had been ambulating without assistive device, going up and down stairs, and working diligently on her range of motion and strength. This morning, she was making the bed and she tripped landing on a flexed left knee. She immediately had a notable deformity with opening of the surgical wound. There is no exposed metal per her report and she was brought into the emergency department. I was called in consultation given the open wound. Per report, there is no exposed metal. There is no defect of the arthrotomy. She had minimal pain. She denied any premorbid pain within the knee prior to the fall. She expresses that the fall was mechanical tripping over the edge of the bed. Consults Consult date: 06/21/21 Requesting physician: Nayely Zazueta Consult Reason Left knee surgical wound dehiscence Assessment and Plan Assessment and plan (1) Surgical wound dehiscence: Status: Acute Assessment and plan: Juliette is an 80-year-old who suffered a dehiscence of her left knee surgical wound. She is about 6 weeks out and was doing very well. She had no premorbid pain to suggest that there is any infection underlying issue with the knee prior to her falling. She had a mechanical fall with a hyperflexion injury which would result in the defect that she has. Therefore, without any sign of air within the joint and without any gross defect of the arthrotomy, this likely represents a skin dehiscence only with the arthrotomy intact. We did reach out to her original surgeon, Dr. Mcdonald, and in discussion decided to keep her here to proceed with debridement as soon as possible. I do not have the polyethylene that he uses but I do not expect to enter into the joint capsule based on the examination and the x-ray findings. I discussed all this with Juliette. I will provide her with a knee immobilizer afterwards simply fracture support and to prevent her from having any buckling or hyperflexion of the left knee. She may continue with her physical therapy and with ambulation as tolerated but should avoid any forced flexion of the left knee. She will have sutures outside the skin to make sure this heals. I was very honest with Juliette that the most likely complication here would be a delayed infection due to this injury. Given that the arthrotomy appears to be intact that is a excellent finding. However, there could be microscope penetration but typically some air would be seen on the x-ray. She does have a history of C. difficile therefore I would be cautious on antibiotics but I do think 2 days of cephalexin would be reasonable following this. She is going to get a dose of antibiotics here in emergency department and then will stop with her 48 hours. She may weight-bear as tolerated with an assistive device at first. She has a knee immobilizer which will be administered after the surgery which she may wear when she is mobilizing if she desires that she wants it for comfort and support. She will be admitted to the hospital for observation and likely DC to home this afternoon. Qualifiers: Encounter type: initial encounter Qualified Code(s): T81.31XA - Disruption of external operation (surgical) wound, not elsewhere classified, initial encounter Review of Systems All systems reviewed & are unremarkable except as noted in HPI and below PFSH Medical History C. 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) S/P appendectomy Family History Mother Leukemia Hypertension Father Bladder cancer Emphysema of lung Social History Smoking/Tobacco Use Status: Former Tobacco Use Smoking risk assessment performed?: Yes Alcohol Intake: current Alcohol Intake frequency: holidays/special occasions only Drug use: Never Substance use type: does not use Details: stopped smoking 20 years ago Do you feel safe at home: Yes Do you feel safe in your relationship?: Yes Exam Const General: cooperative, healthy appearing, comfortable and no acute distress Nutritional Appearance: average body habitus Orientation: alert, awake and oriented x3 Resp Effort & Inspection: normal respiratory effort Auscultation: clear to auscultation bilaterally Cardio Rate: regular rate Rhythm: regular rhythm Extrem Other: The midline incision about the left knee is opened. A Betadine dressing is currently in place. No significant effusion palpable. No crepitus or emphysema on palpation of the knee joint from the medial lateral aspects. She is able to straight leg raise without pain and without lag. The knee is stable to varus and valgus stress. No defect of the arthrotomy appreciated. Results Last Vital Signs Temp 36.7 C 06/21/21 10:44 Pulse 85 06/21/21 10:44 Resp 18 06/21/21 10:44 BP 168/80 H 06/21/21 10:44 Pulse Ox 98 06/21/21 10:44 Labs Labs: Laboratory Results - last 24 hr 06/21/21 10:06 COVID-19 Source Nasal/Nares SARS-CoV-2 (PCR) Negative Imaging Imaging Studies: X-ray of the left knee shows an obvious defect of the anterior portion of the knee itself on the lateral. I see no air within the joint. The knee components appear to be well-positioned without sign of loosening or fracture.
--- NOTE | 2021-06-21 11:43 | DSE_ITS ---
Date of service: 06/21/21 Time of Service: 12:46 DS: Diagnosis Discharge Diagnosis (1) Surgical wound dehiscence: Status: Acute Discharge Plan Disposition Patient Disposition: HOME Condition: Good Discharge Details Clinical Impression: Surgical wound dehiscence Primary Care Provider: Winifred Gamez ED Provider: Nayely Zazueta Home Meds and New Rx's Prescriptions: New celecoxib 200 mg capsule 200 mg PO DAILY Qty: 30 RF: 1 acetaminophen 500 mg tablet 500 mg PO Q6H PRN PRN (Reason: pain) Qty: 40 RF: 3 hydromorphone 2 mg tablet 2 mg PO Q8H PRN PRN (Reason: pain) Qty: 5 RF: 0 cephalexin 500 mg capsule 500 mg PO TID Qty: 6 RF: 0 Continued lisinopril 20 mg Tablet 20 mg PO DAILY RF: 0 fluticasone propion-salmeterol [Advair Diskus] 100-50 mcg/dose Blister With Device 1 inh INHALATION BID RF: 0 diltiazem HCl [Cartia XT] 120 mg Capsule,Extended Release 24hr 120 mg PO DAILY RF: 0 lidocaine [Lidoderm] 5 % adhesive patch,medicated 1 patch TP DAILY PRN (Reason: pain) Qty: 15 RF: 0 Discontinued hydrocodone-acetaminophen [Xenia] 7.5-325 mg Tablet 7.5 tab PO PRN PRNRF: 0 hydrocodone-acetaminophen 7.5-325 mg tablet 1 tab PO Q8H PRN (Reason: pain) Qty: 10 RF: 0 Discharge Instructions Additional Instructions: Knee Discharge Instructions Activity: You may continue to walk. You should try to take short walks a few times a day. When you are up and moving you may use the knee immobilizer for support. It is not necessary but make you more comfortable with ambulation to being and it will limit flexion. You may use a walker and crutches as necessary in the beginning but you have no weight-bearing restrictions. - You may continue your physical therapy but without any forced flexion - You may bend your knee but should avoid any deep flexion or agressive flexion if tight. Dressing: Remove the Robles wrap 2 days after your surgery. Keep the surgical dressing (underneath the ROBLES wrap) in place for at least one week. This dressing is a vacuum assisted dressing and has a small battery pack attached to it. If the dressing gets full, an orange light will blink. You may call the office to discuss this but you have been sent home with an additional dressing. After the first week the dressing may be removed and replaced with light gauze and tape. The wound and dressing may get wet after 3 days but avoid soaking the dressing or otherwise it will need to be changed. Many people prefer covering the dressing with cling wrap (saran wrap) to minimize it from getting soaked. If it gets wet, just pat dry. If it starts to peel off then it will need to be changed. Medications: - You should take Tylenol and anti-inflammatory Celebrex as your primary pain control medications. - You have been prescribed a stronger pain medication Hydromorphone for breakthrough pain, take as needed as prescribed. You may also halve this tablet if less is needed. - You will take two days of Keflex to prevent any infection Follow-up: 2 weeks If you have any acute concerns or questions, please do not hesitate to contact the office at [phone]. You may contact Dr. Bartlett with any questions after hours through the hospital at [phone] or on his cell phone at [phone]. Referrals: Tessa Mcdonald [ NON-[facility] STAFF PHYSICIAN] - (2 week follow-up) DS: Summary Time Spent with Patient providing and/or coordinating discharge services: Less than 30 minutes Status at Discharge Functional status at discharge: uses cane/walker Overall status at discharge: patient is progressing back to baseline Mental Status: mental status grossly normal Speech and Movement: speech and movement normal Mood: congruent mood Affect: normal affect Exam Psych Mental Status: mental status grossly normal Speech and Movement: speech and movement normal Mood: congruent mood Affect: normal affect DS: Data Vitals/I&O Vitals and I&O: Vital Signs Temperature 36.7 C 06/21/21 10:44 Temperature Source Temporal Artery Scan 06/21/21 09:22 Pulse 85 06/21/21 10:44 Respiratory Rate 18 06/21/21 10:44 Respiratory Effort Non-Labored 06/21/21 10:18 Blood Pressure 168/80 H 06/21/21 10:44 Blood Pressure Position Sitting 06/21/21 09:22 Pulse Oximetry 98 06/21/21 10:44 Oxygen Delivery Method Room Air 06/21/21 10:44 Oxygen Flow Rate 0 06/21/21 10:44 Pain Level 0 06/21/21 09:27 Intake & Output 06/20/21 06/20/21 06/21/21 11:59 23:59 11:59 Weight 56.699 kg Data Completed and Pending Labs on day of discharge: Labs from last 24 hours 06/21/21 10:06 COVID-19 Source Nasal/Nares SARS-CoV-2 (PCR) Negative [facility] Medical History C. 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
--- NOTE | 2021-06-21 11:45 | DI.VRAD_ITS ---
PROCEDURE INFORMATION: Exam: XR Left Knee Exam date and time: 06/21/2021 9:29 AM Age: 80 years old Clinical indication: Pain; Prior surgery; Surgery date: 1-6 months; Surgery type: Left tka; Patient HX: Blunt trauma to left knee TECHNIQUE: Imaging protocol: XR Left knee. Views: 3 views. COMPARISON: No relevant prior studies available. FINDINGS: Bones/joints: Status post left total knee arthroplasty. Gross anatomic alignment. Subcutaneous emphysema present anteriorly bandage overlies the anterior left knee. Soft tissue swelling. No evidence of acute fracture Soft tissues: See Bones/joints finding. IMPRESSION: No evidence of acute fracture Dictated and Authenticated by: Maru Lovell MD. Ordering:GISELA Adler MD
[2021-06-21] MEDS: Bupivacaine 0.25% Pres-Free 30 ML VIAL (12:08)
--- NOTE | 2021-06-21 12:56 | W.ANESPOSTOP ---
Postoperative Evaluation Date, Time and Location Date Performed: 06/21/21 Time Performed: 12:57 Patient Location: Intensive Care Unit (220) Vital Signs Most Recent Imported Vital Signs: Most Recent Vital Signs Temp Pulse Resp BP Pulse Ox 36.7 C 85 18 168/80 H 98 06/21/21 10:44 06/21/21 10:44 06/21/21 10:44 06/21/21 10:44 06/21/21 10:44 Pain Score Most Recent Pain Score: Most Recent Pain Score Pain Level [Left Upper 0 06/21/21 09:27 Anterior Medial Knee] Pain Level 0 06/21/21 09:22 Assessment Mental Status: Awake (Alert & Oriented to Patient Baseline) Airway and Respiratory Function: Patent airway with normal (patient baseline) respiratory exam Cardiovascular Function: Hemodynamically Stable Hydration Status: Adequately Hydrated Nausea & Vomiting: No Nausea or Vomiting Pain: Pain is tolerable per patient (2-3/10 per patient. Denies wanting meds) Peripheral Nerve Block: Patient did not receive a nerve block
--- NOTE | 2021-06-21 13:31 | W.PM.OP ---
Date of service: 06/21/21 Time of Service: 12:31 Operative Note Operative Note DATE OF PROCEDURE: 06/21/21 PRE-OP DIAGNOSIS: Left Knee Surgical Wound Dehisence POST-OP DIAGNOSIS: same PROCEDURE: Left Knee Irrigation and Debridement, Secondary Closure SURGEON: Roberto Bartlett ANESTHESIA TYPE: General:No Airway Refer to Anesthesia Record ESTIMATED BLOOD LOSS: 5 PATHOLOGY: other TOURNIQUET TIME: 0 COMPLICATIONS: None Patient was transported to: floor Patient's condition: stable Indications: Juliette is an active 80-year-old who is 6 weeks status post left knee replacement Dr. Mcdonald. She was doing well until she tripped at home while making the bed this morning. She landed on a hyperflexed left knee causing an opening to her surgical wound. She is brought to the emergency department I was called in consultation. I discussed treatment options with her and recommended urgent debridement with secondary closure. I discussed the risk of the procedure to include bleeding, infection, pain, stiffness, skin healing difficulties. Despite these risk, she elects to proceed. Findings: There is dehiscence of about 80% of the left knee surgical wound. A lateral flap was created but the medial side was intact. The arthrotomy was investigated and showed no signs of arthrotomy rupture. There is no apparent opening of the joint. The wound was thoroughly irrigated with 3 L normal saline. It also was irrigated with irrisept chlorhexidine solution, allowing to sit for 3 minutes. The knee was closed with interrupted sutures. Procedure Description: Juliette was greeted in the preoperative holding area. She was brought to the operating room from the emergency department. In the emergency department her history physical was completed as well as the consent signed. She was taken into the operating room placed in the supine position. All bony prominences were well-padded on the operating room table. Prophylactic antibiotics in the form of cefazolin 2 g was administered. The left leg was prepped ChloraPrep except over the wound which is prepped with Betadine. A timeout was performed for safe surgery. The left knee wound was first irrigated thoroughly with 2 L normal saline. Sharp debridement was performed of any remnant suture material or any other necrotic or unhealthy tissue, which was minimal. This dehiscence created a lateral based flap and there was no medial based flap. With gentle dissection I did explore superiorly medially to make sure the arthrotomy was not ruptured which was not. This was not probed but it was inspected for the length of the wound and showed no signs of dehiscence of the arthrotomy. I think continued irrigating with the remaining 1 L normal saline. Once again, the wound was fully inspected and showed no signs of devitalized tissue and no debris. The arthrotomy was intact. Chlorhexidine solution, irrisept, was allowed to be irrigated through the wound and sit for 3 minutes. During this time I also injected the soft tissues with 0.25% bupivacaine. After 3 minutes, the knee was rinsed once again with normal saline and closure was started. I used both 0 and 2-0 PDS sutures for the deep layers. PDS was utilized due to being nonbraided with the potential of infection. The skin was closed with alternating horizontal mattress sutures and simple sutures using 3-0 nylon. This closure was performed in a in approximately 80 degrees of flexion. A Joleen vacuum-assisted dressing was then applied. The leg was wrapped with Robles wrap from the foot through the thigh. All counts were correct. Juliette was awakened from anesthesia. She tolerated the procedure well. She is transferred over to the hospital stretcher and then upstairs for her recovery. A knee immobilizer was applied which may be worn when she is ambulating. However, it is not necessary but will prevent any hyperflexion of the knee. She may weight-bear as tolerated.
[2021-06-21] MEDS: Acetaminophen 500 MG TAB 1000 MG PO (13:42)
== END 2021-06-21 14:30 | disposition home or self-care (01) ==
LOC: ER 12:48 → ICU 13:19
PROVIDERS: Admitting Provider Student in an Organized Health Care Education/Training Program; Emergency Provider Physician Assistant; PCP Family Medicine; Visit Provider Student in an Organized Health Care Education/Training Program
DX: T81.31XA Disruption of external operation (surgical) wound, not elsewhere classified, initial encounter (principal); J44.9 Chronic obstructive pulmonary disease, unspecified; I10 Essential (primary) hypertension; G25.81 Restless legs syndrome; M47.816 Spondylosis without myelopathy or radiculopathy, lumbar region; I77.810 Thoracic aortic ectasia; Z96.653 Presence of artificial knee joint, bilateral; Z96.641 Presence of right artificial hip joint; Z87.891 Personal history of nicotine dependence; K21.9 Gastro-esophageal reflux disease without esophagitis
CPT/HCPCS: 12032; 73562; 87635; 96361; 96365; 99219; 99285; 99284; G0378; J0690; J1100; J1885; J2001; J2405

== ENCOUNTER 2022-04-20 10:50 | Emergency (ER) | payer MEDICARE, OTHER, SELFPAY ==
[2022-04-20 10:54] VITALS: BP 142/85; PULSE 83; RESP 18; TEMP 36.7; O2SAT 97
[2022-04-20 11:33] VITALS: BP 138/82; PULSE 80; RESP 16; TEMP 36.9; O2SAT 95
[2022-04-20] MEDS: Lidocaine 5% Patch 1 PATCH TP (12:12)
[2022-04-20] MEDS: Ketorolac 15 MG/ML VIAL IM (12:12)
--- NOTE | 2022-04-20 13:02 | DI.RAD_ITS ---
Exam(s) XR HIP RT COMPLETE AP PELVIS EXAM: XR HIP RT COMPLETE AP PELVIS CLINICAL HISTORY: sciatica pain for 1 week. TECHNIQUE: 2D digital imaging was performed. COMPARISON: No exams were available for comparison FINDINGS: 3 views There is a healed fracture of the inferior pubic ramus on the right side. No acute pelvic nor hip fr actures. There is a right hip prosthesis. Components are in satisfactory position alignment with no fracture nor loosening evident. There is no radiographic evidence of osteomyelitis. On the right side there are multiple small calcific well-defined densities average size 5 millimeters which are projected towards the medial aspect of the hip. There is moderate narrowing of the opposite-left joint space. There is also chronic advanced disc space narrowing at L4-5 level. IMPRESSION: No acute fracture. Satisfactory appearance of the right hip prosthesis. DATA REPOSITORY: RADIATION DOSE DELIVERED:
--- NOTE | 2022-04-20 13:31 | ED.GENADUL_ITS ---
Discharge Plan Disposition Patient Disposition: HOME Condition: Stable Discharge Details Clinical Impression: Sciatica Primary Care Provider: Winifred Gamez ED Provider: Manolo Oneill Home Meds and New Rx's Prescriptions: New lidocaine [Lidoderm] 5 % adhesive patch,medicated 1 patch topical DAILY PRNQty: 15 0RF Rx Instructions: prn severe back pain; leave on most painful area for up to 12 hrs No Action lisinopril 20 mg Tablet 20 mg PO DAILY celecoxib 200 mg capsule 200 mg PO DAILY Qty: 30 1RF acetaminophen 500 mg tablet 500 mg PO Q6H PRN PRN (Reason: pain) Qty: 40 3RF hydromorphone 2 mg tablet 2 mg PO Q8H PRN PRN (Reason: pain) Qty: 5 0RF cephalexin 500 mg capsule 500 mg PO TID Qty: 6 0RF fluticasone propion-salmeterol [Advair Diskus] 100-50 mcg/dose Blister With Device 1 inh INHALATION BID diltiazem HCl [Cartia XT] 120 mg Capsule,Extended Release 24hr 120 mg PO DAILY lidocaine [Lidoderm] 5 % adhesive patch,medicated 1 patch TP DAILY PRN (Reason: pain) Qty: 15 0RF Rx Instructions: leave on most painful area for up to 12 hrs Discharge Instructions Instructions: Sciatica (ED) Additional Instructions: Please follow-up with your primary care physician. Please return to the emergency department for any worsening symptoms specifically weakness numbness falls bowel or bladder dysfunction for other abnormal symptoms Medical Decision Making 81-year-old female presents with persistent right gluteal and thigh discomfort paresthesias painful radiating down left leg over the past week, atraumatic nontoxic afebrile, neurovascular exam of limb intact, ambulatory without assistance no bowel or bladder dysfunction. Analgesia and anti-inflammatory to be administered. Screening x-ray of hip and pelvis. Likely sciatica low suspicion for fracture or dislocation low suspicion for spinal cord impingement or infectious process. Disposition likely home with return precautions 14: 50 no acute distress xray unremarkable. Patient to follow-up with her primary care physician likely sciatica. Discussed treatment options as an outpatient. Given strict return precautions for any signs of neurologic deficits. HPI General Date/Time Provider Initiated Documentation: 04/20/22 11:27 . HPI Narrative: 81-year-old female presents with right buttock and posterior leg pain, painful paresthesias radiating down the leg over the past week, was started as an outpatient on a steroid burst as well as cyclobenzaprine for presumed sciatica. Denies fevers chills nausea vomiting urinary symptoms or trauma. Does have a history of a right hip arthroplasty. Related Data Home Medications Medication Instructions Recorded Confirmed lisinopril 20 mg tablet 20 mg PO DAILY 05/26/19 06/21/21 diltiazem HCl 120 mg 120 mg PO DAILY 09/06/20 06/21/21 capsule,extended release 24 hr (Cartia XT) fluticasone 100 mcg-salmeterol 50 1 inh inhalation BID 09/06/20 06/21/21 mcg/dose blistr powdr for inhalation (Advair Diskus) lidocaine 5 % topical patch 1 patch topical DAILY PRN pain #15 01/10/21 06/21/21 (Lidoderm) ea acetaminophen 500 mg tablet 500 mg PO Q6H PRN PRN pain #40 tabs 06/21/21 celecoxib 200 mg capsule 200 mg PO DAILY #30 caps 06/21/21 cephalexin 500 mg capsule 500 mg PO TID #6 caps 06/21/21 hydromorphone 2 mg tablet 2 mg PO Q8H PRN PRN pain #5 tabs 06/21/21 lidocaine 5 % topical patch 1 patch topical DAILY PRN #15 ea 04/20/22 (Lidoderm) Previous Rx's Medication Instructions Recorded lidocaine 5 % topical patch 1 patch topical DAILY PRN pain #15 01/10/21 (Lidoderm) ea acetaminophen 500 mg tablet 500 mg PO Q6H PRN PRN pain #40 tabs 06/21/21 celecoxib 200 mg capsule 200 mg PO DAILY #30 caps 06/21/21 cephalexin 500 mg capsule 500 mg PO TID #6 caps 06/21/21 hydromorphone 2 mg tablet 2 mg PO Q8H PRN PRN pain #5 tabs 06/21/21 lidocaine 5 % topical patch 1 patch topical DAILY PRN #15 ea 04/20/22 (Lidoderm) Allergies Allergy/AdvReac Type Severity Reaction Status Date / Time morphine Allergy Severe Psychosis Unverified 06/21/21 09:33 Penicillins Allergy Intermediate Hives Unverified 06/21/21 09:33 General Stated Complaint: Nk/Back Pain CASEY: 4 Review of Systems Narrative: Review of Systems Constitutional: negative Eyes: negative ENT: negative Cardiovascular: negative Respiratory: negative Gastrointestinal: negative : negative Musculoskeletal: Leg pain Skin: negative Neurologic: negative Psych: negative PFSH All Active Problems (Updated 04/20/22 @ 14:17 by Manolo Oneill MD) Sciatica (Acute) Surgical wound dehiscence (Acute) Fracture of right distal radius (Acute) Right rib fracture (Acute) Cellulitis (Acute) Chest pain (Acute) Hemoptysis (Acute) Right upper lobe pulmonary infiltrate (Acute) COPD (chronic obstructive pulmonary disease) (Chronic) HTN (hypertension) (Chronic) Medical History C. 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) S/P appendectomy Family History Mother Leukemia Hypertension Father Bladder cancer Emphysema of lung Social History Smoking/Tobacco Use Status: Former Tobacco Use Smoking risk assessment performed?: Yes Alcohol Intake: current Alcohol Intake frequency: holidays/special occasions only Drug use: Never Substance use type: does not use Details: stopped smoking 20 years ago Do you feel safe at home: Yes Do you feel safe in your relationship?: Yes Exam Narrative Exam Narrative: Physical Examination General: alert, awake, cooperative, resting comfortably, no acute distress HEENT: normocephalic, atraumatic; PERRL, EOM intact, conjunctiva normal; no nasal discharge; moist mucous membranes, oral and pharyngeal mucosa normal, tolerating secretions Neck: supple, trachea midline; full ROM Chest: normal to inspection Respiratory: normal respiratory effort, speaking in full sentences, clear to auscultation, no wheezing, rales or rhonchi Cardiac: regular rate, regular rhythm, S1S2 intact, no murmurs rubs or gallops GI: abdomen soft, non-tender, non-distended; no palpable mass or hepatosplenomegaly Skin: no lesions, rashes or trauma appreciated Neuro: AAOx3, normal speech, moving all extremities Extremities: Full strength and sensation bilateral lower extremities, flexion extension at hip knee and ankle intact, soft compartments warm well perfused; ambulatory without assistance Psych: Appropriate mood and affect Course Vital Signs Vital signs: Vital Signs Temperature 36.7 C 04/20/22 10:54 Pulse 83 04/20/22 10:54 Respiratory Rate 18 04/20/22 10:54 Blood Pressure 142/85 H 04/20/22 10:54 Pulse Oximetry 97 04/20/22 10:54 Temperature 36.9 C 04/20/22 11:33 Temperature Source Temporal Artery Scan 04/20/22 11:33 Pulse 80 04/20/22 11:33 Respiratory Rate 16 04/20/22 11:33 Blood Pressure 138/82 04/20/22 11:33 Blood Pressure Position Sitting 04/20/22 10:54 Pulse Oximetry 95 04/20/22 11:33 Oxygen Delivery Method Room Air 04/20/22 11:33 Oxygen Flow Rate 0 04/20/22 11:33
== END 2022-04-20 14:30 | disposition home or self-care (01) ==
PROVIDERS: Emergency Provider Emergency Medicine; PCP Family Medicine
DX: M54.31 Sciatica, right side (principal); I10 Essential (primary) hypertension; J44.9 Chronic obstructive pulmonary disease, unspecified; Z79.51 Long term (current) use of inhaled steroids; Z87.891 Personal history of nicotine dependence
CPT/HCPCS: 96372; 99284; 73502; J1885

== ENCOUNTER 2022-04-29 10:48 | Emergency (ER) | payer MEDICARE, OTHER, SELFPAY ==
[2022-04-29 10:59] VITALS: BP 216/102; PULSE 82; RESP 14; O2SAT 99
--- NOTE | 2022-04-29 11:15 | ED.GENADUL_ITS ---
Discharge Plan Disposition Patient Disposition: HOME Condition: Stable Discharge Details Clinical Impression: Low back pain with right-sided sciatica Primary Care Provider: Winifred Gamez ED Provider: Krish Bowman Home Meds and New Rx's Prescriptions: Continued lisinopril 20 mg Tablet 20 mg PO DAILY celecoxib 200 mg capsule 200 mg PO DAILY Qty: 30 1RF acetaminophen 500 mg tablet 500 mg PO Q6H PRN PRN (Reason: pain) Qty: 40 3RF lidocaine [Lidoderm] 5 % adhesive patch,medicated 1 patch topical DAILY PRNQty: 15 0RF Rx Instructions: prn severe back pain; leave on most painful area for up to 12 hrs fluticasone propion-salmeterol [Advair Diskus] 100-50 mcg/dose Blister With Device 1 inh INHALATION BID diltiazem HCl [Cartia XT] 120 mg Capsule,Extended Release 24hr 120 mg PO DAILY lidocaine [Lidoderm] 5 % adhesive patch,medicated 1 patch TP DAILY PRN (Reason: pain) Qty: 15 0RF Rx Instructions: leave on most painful area for up to 12 hrs Discontinued hydromorphone 2 mg tablet 2 mg PO Q8H PRN PRN (Reason: pain) Qty: 5 0RF No Action cephalexin 500 mg capsule 500 mg PO TID Qty: 6 0RF Discharge Instructions Instructions: Sciatica (ED) Additional Instructions: Tylenol 650 to 1000 mg 2 or 3 times per day. Continue your celecoxib as previously prescribed. May use the prescribed hydromorphone for severe or breakthrough pain. No alcoh ol or driving with this medication. May apply ice to area to reduce discomfort. Follow-up with physical therapy. You may continue gentle stretching exercises such as pigeon pose. Return to the ER for any acute concerns Medical Decision Making This is an 81-year-old female presents from home. She has been suffering with right-sided sciatica type symptoms for approximately 2 weeks. She was seen in the emergency department on April 20 and had an unremarkable x-ray. She has been seen by her primary care physician and had a small burst of steroid. She has tried gabapentin as well as tramadol for the pain which has been persistent. She arrives slightly hypertensive and with exam reveals normal/intact motor and sensory function of the lower extremity but significant tenderness overlying the sciatic notch. She is hypertensive and in some pain. Patient has had an outpatient MRI scheduled for the end of the month. Today, IV access established, screening labs obtained, patient given parenteral analgesia, and given her escalating pain pattern an MRI was obtained to rule out underlying emergent surgical spinal condition. MRI: There is no evidence of fracture, acute infection or disc herniation. There is multilevel degenerative changes including facet hypertrophy and central canal stenosis. There is narrowing of the neural foramina at multilevels. Please see the formal report. Patient observed following MRI and administration of analgesia. She is improved and able to move on her own including sit up at the side of the bed and ambulate. I will prescribe her physical therapy. We will place her on a burst of prednisone again. She is given a small number of hydromorphone for which she was consented and used well without ill effect in the past Lab Data Lab results reviewed: Yes I reviewed the patient's lab results. Lab results narrative: Laboratory Results - last 24 hr 04/29/22 04/29/22 11:18 11:18 WBC 9.13 RBC 4.04 Hgb 12.8 Hct 37.7 MCV 93 MCH 31.7 MCHC 34.0 RDW 13.0 Plt Count 282 MPV 8.9 Immature Gran % 0.4 Neutrophils % 70.8 Lymphocytes % 19.8 Monocytes % 6.2 Eosinophils % 1.9 Basophils % 0.9 Nucleated RBC % 0.0 Absolute Neutrophils 6.46 Absolute Lymphocytes 1.81 Absolute Monocytes 0.57 Absolute Eosinophils 0.17 Absolute Basophils 0.08 Sodium 141 Potassium 4.1 Chloride 107 Carbon Dioxide 25.6 Anion Gap 8.4 BUN 16 Creatinine 0.8 Estimated GFR/1.73 m2 >= 60.00 Glucose 100 Calcium 9.0 Total Bilirubin 0.6 AST 17 ALT 22 Alkaline Phosphatase 96 Total Protein 7.2 Albumin 3.9 HPI General Mode of arrival: ambulatory . Date/Time Provider Initiated Documentation: 04/29/22 10:51 . Limitations to Documentation: no limitations . Information obtained by: patient . History of Present Illness 81 year old F presents to the emergency department with the chief complaint of Right hip and buttock pain, described as moderate and severe, and is localized to the right and lower extremity. Patient distal. Patient started experiencing this day(s) and it has been intermittent. Rest improves symptom(s), Movement worsens symptoms . Patient notes denies fever/chills, rash, shortness of breath, syncope and weakness. Patient did receive the following treatments prior to arrival, NSAID Related Data Home Medications Medication Instructions Recorded Confirmed lisinopril 20 mg tablet 20 mg PO DAILY 05/26/19 04/29/22 diltiazem HCl 120 mg 120 mg PO DAILY 09/06/20 04/29/22 capsule,extended release 24 hr (Cartia XT) fluticasone 100 mcg-salmeterol 50 1 inh inhalation BID 09/06/20 06/21/21 mcg/dose blistr powdr for inhalation (Advair Diskus) lidocaine 5 % topical patch 1 patch topical DAILY PRN pain #15 01/10/21 06/21/21 (Lidoderm) ea acetaminophen 500 mg tablet 500 mg PO Q6H PRN PRN pain #40 tabs 06/21/21 celecoxib 200 mg capsule 200 mg PO DAILY #30 caps 06/21/21 cephalexin 500 mg capsule 500 mg PO TID #6 caps 06/21/21 lidocaine 5 % topical patch 1 patch topical DAILY PRN #15 ea 04/20/22 (Lidoderm) Previous Rx's Medication Instructions Recorded lidocaine 5 % topical patch 1 patch topical DAILY PRN pain #15 01/10/21 (Lidoderm) ea acetaminophen 500 mg tablet 500 mg PO Q6H PRN PRN pain #40 tabs 06/21/21 celecoxib 200 mg capsule 200 mg PO DAILY #30 caps 06/21/21 cephalexin 500 mg capsule 500 mg PO TID #6 caps 06/21/21 lidocaine 5 % topical patch 1 patch topical DAILY PRN #15 ea 04/20/22 (Lidoderm) Allergies Allergy/AdvReac Type Severity Reaction Status Date / Time morphine Allergy Severe Psychosis Unverified 04/29/22 11:02 Penicillins Allergy Intermediate Hives Unverified 04/29/22 11:02 General Stated Complaint: Orthopedic CASEY: 3 Review of Systems Narrative: No fever, no change to bowel or bladder habits. No motor weakness or numbness. Able to walk. Denies fall or injury. 6 systems were reviewed reviewed and otherwise negative PFSH All Active Problems (Updated 04/29/22 @ 12:19 by Krish Bowman MD) Sciatica (Acute) Low back pain with right-sided sciatica (Acute) Surgical wound dehiscence (Acute) Fracture of right distal radius (Acute) Right rib fracture (Acute) Cellulitis (Acute) Chest pain (Acute) Hemoptysis (Acute) Right upper lobe pulmonary infiltrate (Acute) COPD (chronic obstructive pulmonary disease) (Chronic) HTN (hypertension) (Chronic) Medical History C. 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 Lumbar spondylosis Meningioma Restless leg syndrome Thoracic aortic ectasia Urinary frequency Surgical History History of total right hip arthroplasty (~2014) History of total right knee replacement (~2017) S/P appendectomy Family History Mother Leukemia Hypertension Father Bladder cancer Emphysema of lung Social History Smoking/Tobacco Use Status: Former Tobacco Use Smoking risk assessment performed?: Yes Alcohol Intake: current Alcohol Intake frequency: holidays/special occasions only Drug use: Never Substance use type: does not use Details: stopped smoking 20 years ago Do you feel safe at home: Yes Do you feel safe in your relationship?: Yes Exam Narrative Exam Narrative: GEN: awake, alert, oriented 3. Pleasant, well groomed, interactive. HEAD: Normocephalic, atraumatic ENT: Mucous membranes moist, oropharynx unremarkable, External ear exam unremarkable EYES: PERRL, EOMI NECK: Full ROM, no JANAK, no menigismus CHEST/RESP: Nontender, clear to auscultation bilateral, no wheeze/rhonchi/rales CARDIOVASCULAR: RRR, no murmur, rub ariel. 2+ Rad pulse bilateral ABDOMEN: Soft, nontender, no mass. +Bowel sounds EXT: Motor is 5 out of 5 in the bilateral lower extremity. Sensation intact t hroughout including saddle distribution. Pain with palpation of right lateral buttocks and sciatic notch Neuro: Grossly normal neurologic exam, conversant, interactive. Psych: Speech fluent, thoughts congruent, affect normal Course Vital Signs Vital signs: Vital Signs Pulse 82 04/29/22 10:59 Respiratory Rate 14 04/29/22 10:59 Blood Pressure 216/102 H 04/29/22 10:59 Pulse Oximetry 99 04/29/22 10:59 Pulse 82 04/29/22 10:59 Respiratory Rate 14 04/29/22 10:59 Respiratory Effort 04/29/22 11:05 Blood Pressure 216/102 H 04/29/22 10:59 Blood Pressure Position Supine 04/29/22 10:59 Pulse Oximetry 99 04/29/22 10:59 Oxygen Delivery Method Room Air 04/29/22 10:59 Oxygen Flow Rate 0 04/29/22 10:59 Pain Level 8 04/29/22 11:05 PAWSS Have you Been Recently Intoxicated or Drunk Within the Last 30 days?: No Have you Ever Experienced Previous Episodes of Alcohol Withdrawal?: No Have you ever Experienced Withdrawal Seizures?: No Have you ever Experienced Delirium Tremens(DT)s?: No Have you ever undergone Alcohol Rehabilitation Treatment (i.e, inpt ot outpatient treatment programs)?: No Have you ever Experienced Blackouts?: No Have you ever Combined Alcohol with other Downers within the last 90 days?: No Have you ever Combined Alcohol with any other Substance of Abuse during the last 90 days?: No Positive Blood Alcohol level on Presentation? [PCS.BAL]: No Evidence of Increased Autonomic Activity (i.e. HR>120, tremor, sweating, agitation, nausea)?: No Result: 0
[2022-04-29 11:25] LABS: Abs Immature Grans 0.04 10^3/uL (0.0-0.06); Absolute Basophil Count 0.08 10^3/uL (0.0-0.2); Absolute Eosinophil Count 0.17 10^3/uL (0.0-0.7); Absolute Lymphocyte Count 1.81 10^3/uL (1.2-3.4); Absolute Monocyte Count 0.57 10^3/uL (0.1-0.8); Absolute Neutrophil Count 6.46 10^3/uL (1.2-6.7); Basophils % 0.9; Eosinophils % 1.9; HCT 37.7 % (36.0-46.0); HGB 12.8 g/dL (11.2-15.7); Immature Grans % 0.4; Lymphocytes % 19.8; MCH 31.7 pg (27.0-33.0); MCV 93 fL (80-95); MPV 8.9 fL (8.0-11.0); Monocytes % 6.2; Neutrophils % 70.8; Platelet Count 282 10^3/uL (130-400); RBC 4.04 10^6/uL (3.93-5.22); RDW-SD 44.9 fL; WBC 9.13 10^3/uL (4.4-10.8)
[2022-04-29 11:39] LABS: ALT 22 U/L (14-59); AST 17 U/L (15-37); Albumin 3.9 g/dL (3.4-5.0); Alkaline Phosphatase 96 U/L (46-116); Anion Gap 8.4 mmol/L (3-11); BUN 16 mg/dL (7-18); Bilirubin, Total 0.6 mg/dL (0.2-1.0); CO2 25.6 mmol/L (21.0-32.0); CREATININE 0.8 mg/dL (0.55-1.02); Chloride 107 mmol/L (98-107); Glucose 100 mg/dL (74-106); Potassium 4.1 mmol/L (3.5-5.1); Sodium 141 mmol/L (136-145); Total Protein 7.2 g/dL (6.4-8.2)
--- NOTE | 2022-04-29 12:00 | DI.MRI_ITS ---
Exam(s) MR LUMBAR SPINE WO EXAM: MR LUMBAR SPINE WO CLINICAL HISTORY: R buttocck, Leg, low back pain. TECHNIQUE: Multiplanar multisequence MRI was performed. COMPARISON: No exams were available for comparison FINDINGS: MR examination of the lumbosacral spine was performed according to the usual protocol. The there is a moderate biconvex thoracolumbar scoliosis. There are prominent hypertrophic endplate and facet ch anges throughout the lumbar region. No gross erosive or destructive lesion seen. No evidence of acu te fracture. The conus medullaris appears intact. No significant findings at T10-T11 or T11-T12 on sagittal image s. At the T12-L1 level, there is prominent left facet hypertrophy which deforms the spinal canal on the left and narrows the left lateral recess. No disc herniation. No central canal spinal stenosis. No significant neural foraminal stenosis on the right, there is mild left-sided neural foraminal stenos is. At the L1-2 level, there is prominent facet hypertrophic change on the left which narrows the left la teral recess and causes mild to moderate central canal spinal stenosis. No focal disc herniation. N o significant neural foraminal stenosis. At L2-3, there is bilateral facet hypertrophy which causes a moderate to severe central canal spinal stenosis. No significant neural foraminal stenosis or disc herniation. At L3-4, there is a severe central canal spinal stenosis secondary to facet and endplate hypertrophy. No significant disc herniation. No significant neural foraminal stenosis. At L4-5, there is marked left facet hypertrophy with severe narrowing of the left lateral recess and moderate central canal spinal stenosis. There is mild narrowing of the neural foramina bilaterally. At L5-S1, there is moderate facet hypertrophy, there is no evidence of significant disc herniation, c entral canal spinal stenosis, or neural foraminal stenosis. IMPRESSION: Multilevel facet hypertrophic changes, multilevel neural foraminal stenosis and central canal spinal stenosis as described above. Please see findings for individual levels as noted above. DATA REPOSITORY:
[2022-04-29] MEDS: HYDROmorphone 2 MG/ML VIAL 0.5 MG IVP (12:14)
[2022-04-29] MEDS: ACETAMINOPHEN 1,000 MG/100 ML BTL 400 MG IVPB (12:15)
[2022-04-29] MEDS: methylPREDNISolone SUCC 125 MG VIAL IVP (12:15)
[2022-04-29 12:22] VITALS: BP 182/90; PULSE 92; RESP 16; O2SAT 99
[2022-04-29 13:38] VITALS: BP 176/72; PULSE 78; RESP 16; O2SAT 99
== END 2022-04-29 13:34 | disposition home or self-care (01) ==
PROVIDERS: Emergency Provider Emergency Medicine; PCP Family Medicine
DX: M54.41 Lumbago with sciatica, right side (principal); M48.061 Spinal stenosis, lumbar region without neurogenic claudication; M47.816 Spondylosis without myelopathy or radiculopathy, lumbar region; Z87.891 Personal history of nicotine dependence
CPT/HCPCS: 36415; 80053; 96374; 96375; 99284; 72148; 85025; J0131; J2930

== ENCOUNTER 2022-10-26 00:30 | Outpatient (CLI) | payer MEDICARE, SELFPAY ==
--- NOTE | 2022-10-26 15:05 | DI.MRI_ITS ---
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 TECHNIQUE: Multiplanar multisequence MRI of the Lumbar spine was performed. COMPARISON: CR XR HIP RT COMPLETE AP PELVIS from 04/20/2022 MR MR LUMBAR SPINE WO from 04/29/2022 FINDINGS: Bones: The last intervertebral disc space is designated the L5/S1 level for the numbering purpose of this examination. The vertebral body heights are well maintained. Biconvex scoliosis. Multilevel d egenerative disc changes and facet degenerative changes with prominent osteophytes. Cord: The conus tip ends at the T12 level. It is of normal size and signal intensity. T12-L1: Disc osteophytes eccentric toward the left. Prominent left-sided facet degenerative changes cause moderate to severe left neural foraminal encroachment. L1-2: Prominent left-sided facet degenerative change with encroachment into the central canal as well as severe left neural foraminal narrowing. Stable mild to moderate central canal stenosis. L2-3: Mild disc bulging. Prominent bilateral facet degenerative changes combining to produce moderat e central canal stenosis, stable. No central spinal canal or neural foraminal stenosis. L3-4: Severe loss of disc height. Prominent circumferential osteophytes. Bilateral facet degenerati ve changes combine to produce severe central canal stenosis. No significant neural foraminal narrowi ng. Stable from prior. L4-5: Severe loss of disc height. Small endplate osteophytes. Prominent bilateral facet joint degen erative changes. Stable moderate central canal stenosis. Stable mild bilateral neural foraminal donte rowing. L5-S1: Endplate osteophytes and mild disc bulging eccentric toward the left. No significant central canal stenosis. Mild left neural foraminal narrowing. There is a 7 millimeter facet joint cyst proj ecting posteriorly on the left side. The visualized SI joints and sacrum are well maintained. Soft tissues: Postsurgical scarring in size the posterior soft tissues of the lower lumbar region. E ctatic aorta. Proximal abdominal aorta 3.7 cm. IMPRESSION: Stable advanced degenerative disc changes and facet degenerative changes causing central canal stenos is, severe at L3-4. Multilevel bilateral neural foraminal narrowing. No disc herniation. DATA REPOSITORY:
== END 2022-10-26 00:50 ==
LOC: DI 00:31
PROVIDERS: PCP Family Medicine; Visit Provider Neurological Surgery
DX: M47.816 Spondylosis without myelopathy or radiculopathy, lumbar region (principal); M48.061 Spinal stenosis, lumbar region without neurogenic claudication
CPT/HCPCS: 72148

== ENCOUNTER 2022-11-25 22:13 | Inpatient (IN) | payer MEDICARE, SELFPAY ==
--- NOTE | 2022-11-25 22:15 | DI.RAD_ITS ---
Exam(s) XR WRIST LT COMPLETE EXAM: XR WRIST LT COMPLETE CLINICAL HISTORY: WILFREDO. TECHNIQUE: 2D digital imaging was performed. Three views. COMPARISON: CR XR WRIST RT COMPLETE from 02/06/2021 FINDINGS: BONES: There is a comminuted intra-articular fracture of distal radius with significant impaction at the articular surface. There is dorsal displacement of full shaft with and mild angulation. The car pal region is not ideally profiled. There appears to be proximal migration of the capitate which coul d be chronic. There is a chronic appearing bony density seen dorsally. Underlying degenerative dominguez ges are present. Bones are demineralized. SOFT TISSUE: Severe soft tissue swelling, greater ventrally. IMPRESSION: Comminuted and intra-articular fracture of the distal radius. DATA REPOSITORY: RADIATION DOSE DELIVERED:
[2022-11-25 22:19] VITALS: BP 198/101; PULSE 66; RESP 24; TEMP 36.8; O2SAT 96
--- NOTE | 2022-11-25 22:21 | ED.GENADUL_ITS ---
Discharge Plan Disposition Patient Disposition: Admit to [facility] Discharge Details Clinical Impression: Fracture of left wrist Primary Care Provider: Winifred Gamez ED Provider: Jerry Sloan Home Meds and New Rx's Prescriptions: No Action lisinopril 20 mg Tablet 20 mg PO DAILY acetaminophen 500 mg tablet 500 mg PO Q6H PRN PRN (Reason: pain) Qty: 40 3RF diltiazem HCl [Cartia XT] 120 mg Capsule,Extended Release 24hr 120 mg PO DAILY hydromorphone 2 mg tablet 2 mg PO Q6H PRN (Reason: pain) Qty: 7 0RF gabapentin 300 mg capsule Patient Comments: Take 1 to 3 capsule by mouth every night as needed for sleep and restless legs Myrbetriq 50 mg tablet extended release 24 hr 50 mg PO Patient Comments: Take 1 tablet by mouth once a day for urinary problems Medical Decision Making This is an 81-year-old female with a past medical history of COPD, hypertension of, previous rib fractures on the right, who presents today for evaluation of left wrist pain. Patient states that she was walking about an hour ago when she slipped in the driveway and fell on an outstretched left wrist. She immediately developed pain. She has been icing the area ever since. She denies any numbness or tingling. Pain is made worse with movement of the wrist and movement of the fingers. She denies any other trauma to her elbow head neck chest abdomen pelvis or back. She did not fall in any other way. It was all caught by her left hand/wrist. Physical exam demonstrates swelling in the distal radius, with questionable mild deformity Versus edema. We will get an x-ray to rule out fracture. 11:33 PM Patient demonstrates notable fracture of the distal radius. She remains neurovascularly intact. There is a small area of bleeding on the volar aspect, which I am concerned may have been from an open fracture component. There is a significant amount of swelling there now. Patient does have a notable penicillin allergy and so we will give vancomycin. I did discuss the case with Dr. Burch, he agrees for admission with medical consult. We will place medicine consult. I will place admission orders on Dr. Burch's behalf. We will place the patient in a volar splint. We will keep her n.p.o. I have extensively reviewed the treatment plan with the patient. I have addressed all patient concerns at this time. I have also discussed the plan with the admitting physician and they agree with the current assessment and plan and have agreed to assume responsibility for the patient. All parties demonstrate verbal understanding and agreement with our assessment and plan at this time. The documentation in this chart was dictated using [employer] dictation software. Please excuse any dictation errors. FINDINGS: Bones/joints: There is a comminuted intra-articular fracture of the distal radius with moderate dorsal displacement of the major distal fragments on the lateral view. There is widening of the scapholunate distance which appears similar to prior study. 7 mm osseous density seen dorsal to the proximal carpal row on the lateral view. Bones are diffusely osteopenic. Moderate degenerative changes noted in the trapezial metacarpal joint. Soft tissues: Normal. IMPRESSION: 1. Comminuted, displaced intra-articular distal radius fracture 2. Possible fracture fragment seen dorsal to the proximal carpal row on the lateral view. 3. Chronic appearing widening of the scapholunate distance suggesting old scapholunate ligament injury. Thank you for allowing us to participate in the care of your patient. HPI General Date/Time Provider Initiated Documentation: 11/25/22 22:14 . HPI Narrative: This is an 81-year-old female with a past medical history of COPD, hypertension of, previous rib fractures on the right, who presents today for evaluation of left wrist pain. Patient states that she was walking about an hour ago when she slipped in the driveway and fell on an outstretched left wrist. She immediately developed pain. She has been icing the area ever since. She denies any numbness or tingling. Pain is made worse with movement of the wrist and movement of the fingers. She denies any other trauma to her elbow head neck chest abdomen pelvis or back. She did not fall in any other way. It was all caught by her left hand/wrist. Related Data Home Medications Medication Instructions Recorded Confirmed lisinopril 20 mg tablet 20 mg PO DAILY 05/26/19 11/25/22 diltiazem HCl 120 mg 120 mg PO DAILY 09/06/20 11/25/22 capsule,extended release 24 hr (Cartia XT) acetaminophen 500 mg tablet 500 mg PO Q6H PRN PRN pain #40 tabs 06/21/21 11/25/22 hydromorphone 2 mg tablet 2 mg PO Q6H PRN pain #7 tabs 04/29/22 11/25/22 gabapentin 300 mg capsule mg 11/25/22 11/25/22 mirabegron 50 mg tablet,extended 50 mg PO 11/25/22 release 24 hr (Myrbetriq) Previous Rx's Medication Instructions Recorded acetaminophen 500 mg tablet 500 mg PO Q6H PRN PRN pain #40 tabs 06/21/21 hydromorphone 2 mg tablet 2 mg PO Q6H PRN pain #7 tabs 04/29/22 Allergies Allergy/AdvReac Type Severity Reaction Status Date / Time morphine Allergy Severe Psychosis Unverified 11/25/22 22:25 Penicillins Allergy Intermediate Hives Unverified 11/25/22 22:25 General CASEY: 3 Review of Systems All systems reviewed & are unremarkable except as noted in HPI and below PFSH All Active Problems (Updated 11/25/22 @ 23:47 by Jerry Sloan DO) Fracture of left wrist (Acute) Surgical wound dehiscence (Acute) Fracture of right distal radius (Acute) Right rib fracture (Acute) Cellulitis (Acute) Chest pain (Acute) Hemoptysis (Acute) Right upper lobe pulmonary infiltrate (Acute) COPD (chronic obstructive pulmonary disease) (Chronic) HTN (hypertension) (Chronic) Medical History C. 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 Lumbar spondylosis Meningioma Restless leg syndrome Thoracic aortic ectasia Urinary frequency Surgical History History of total right hip arthroplasty (~2014) History of total right knee replacement (~2017) S/P appendectomy Family History Mother Leukemia Hypertension Father Bladder cancer Emphysema of lung Social History Smoking/Tobacco Use Status: Former Tobacco Use Smoking risk assessment performed?: Yes Alcohol Intake: current Alcohol Intake frequency: holidays/special occasions only Drug use: Never Substance use type: does not use Details: stopped smoking 20 years ago Do you feel safe at home: Yes Do you feel safe in your relationship?: Yes Exam Narrative Exam Narrative: 1.Const: Well-nourished, Well-developed, appearing stated age 2.Eyes: PERRL, no conjunctival injection, and symmetrical lids. 3.ENT: Atraumatic external nose and ears. Moist MM. Neck: Symmetric, trachea midline, No thyromegaly. 4.CVS: +S1/S2, No murmurs or gallops. Peripheral pulses 2+ and equal in all e xtremities. Brisk capillary refill in all extremities. 5.RESP: Unlabored respiratory effort. Clear to auscultation bilaterally. No wheezes rales or rhonchi 6.GI: Soft, Nontender/Nondistended, No hepatosplenomegaly. No guarding or rebound. 7.MSK: Normocephalic, the patient's left wrist demonstrates some swelling and deformity at the distal radius. She still demonstrates intact orthodontic assistant strength. Excellent opposition and movement of the thumb. Brisk capillary refill with normal sensation throughout. No other signs of trauma in the elbow neck shoulder head or other extremities. 8.Skin: Warm, Dry. No rashes or lesions. 9.Neuro: medical technologist clinical II-XII grossly intact. Sensation grossly intact, no focal neurologic deficits. 10.Psych: (AAO) x3. Appropriate mood and affect
[2022-11-25] MEDS: Acetaminophen 500 MG TAB 1000 MG PO (22:32)
--- NOTE | 2022-11-25 23:13 | DI.VRAD_ITS ---
PROCEDURE INFORMATION: Exam: XR Left Wrist Exam date and time: 11/25/2022 10:39 PM Age: 81 years old Clinical indication: Injury or trauma; Fall; Fracture, traumatic injury; Closed fracture; Wrist; Left; Injury details: Foosh TECHNIQUE: Imaging protocol: Radiologic exam of the left wrist. Views: 3 or more views. COMPARISON: CR XR FINGER LT INDEX 02/03/2021 2:06 PM FINDINGS: Bones/joints: There is a comminuted intra-articular fracture of the distal radius with moderate dorsal displacement of the major distal fragments on the lateral view. There is widening of the scapholunate distance which appears similar to prior study. 7 mm osseous density seen dorsal to the proximal carpal row on the lateral view. Bones are diffusely osteopenic. Moderate degenerative changes noted in the trapezial metacarpal joint. Soft tissues: Normal. IMPRESSION: 1. Comminuted, displaced intra-articular distal radius fracture 2. Possible fracture fragment seen dorsal to the proximal carpal row on the lateral view. 3. Chronic appearing widening of the scapholunate distance suggesting old scapholunate ligament injury. Dictated and Authenticated by: Codey Beard MD. Ordering:JONATAN Edwards MD
[2022-11-25 23:39] LABS: Abs Immature Grans 0.03 10^3/uL (0.0-0.06); Absolute Basophil Count 0.03 10^3/uL (0.0-0.2); Absolute Eosinophil Count 0.07 10^3/uL (0.0-0.7); Absolute Lymphocyte Count 1.53 10^3/uL (1.2-3.4); Absolute Monocyte Count 0.45 10^3/uL (0.1-0.8); Basophils % 0.3; Eosinophils % 0.6; HCT 39.4 % (36.0-46.0); HGB 13.1 g/dL (11.2-15.7); Immature Grans % 0.3; Lymphocytes % 13.5; MCH 32.6 pg (27.0-33.0); MCHC 33.2 % (32.0-36.0); MCV 98 fL (80-95); MPV 9.2 fL (8.0-11.0); Neutrophils % 81.3; Platelet Count 282 10^3/uL (130-400); RBC 4.02 10^6/uL (3.93-5.22); RDW 13.8 % (11.7-14.6); RDW-SD 48.9 fL; WBC 11.35 10^3/uL (4.4-10.8)
[2022-11-25 23:46] LABS: Absolute Neutrophil Count 9.23 10^3/uL (1.2-6.7)
[2022-11-25] MEDS: fentaNYL 100 MCG/2 ML VIAL 50 MCG IVP (23:46)
[2022-11-25] MEDS: Ondansetron 4 MG/2 ML VIAL IVP (23:47)
[2022-11-25 23:50] LABS: Source Nasal/Nares
[2022-11-25 23:57] LABS: ALT 28 U/L (14-59); AST 22 U/L (15-37); Albumin 4.4 g/dL (3.4-5.0); Alkaline Phosphatase 94 U/L (46-116); Anion Gap 10.1 mmol/L (3-11); BUN 34 mg/dL (7-18); Bilirubin, Total 0.4 mg/dL (0.2-1.0); CO2 23.9 mmol/L (21.0-32.0); Calcium 9.1 mg/dL (8.5-10.1); Chloride 106 mmol/L (98-107); Glucose 127 mg/dL (74-106); Potassium 3.7 mmol/L (3.5-5.1); Sodium 140 mmol/L (136-145); Total Protein 7.7 g/dL (6.4-8.2)
[2022-11-26] VITALS (20 sets, daily range): BP systolic 144–216; BP diastolic 75–130; PULSE 59–76; RESP 14–27; TEMP 36.2–37.4; O2SAT 92–99; BMI 21.4
[2022-11-26 00:22] LABS: COVID-19 PCR Negative (Negative)
[2022-11-26] MEDS: Normal Saline 500 ML 30 ML IV (00:24)
--- NOTE | 2022-11-26 01:19 | NUR.NOTE ---
Nursing Note: 11/26/22 Patient reports morphine listed on allergy list is from taking it as a child and hallucinating. Patient reports receiving dilaudid as an adult and not having any adverse reaction to it. Fentanyl not effective for patient's pain, this nurse requesting to switch to dilaudid from .
[2022-11-26] MEDS: HYDROmorphone 2 MG/ML SYR 0.5 MG IVP ×7 (01:37→23:20)
[2022-11-26] MEDS: Normal Saline Flush 10 ML SYR IVP ×5 (01:38→23:20)
[2022-11-26] MEDS: Water,Injection,Sterile 10 ML VIAL (01:38)
[2022-11-26] MEDS: ACETAMINOPHEN 1,000 MG/100 ML BTL 400 MG IVPB (03:49)
--- NOTE | 2022-11-26 05:55 | OCONE_ITS ---
Assessment and Plan Assessment and plan (1) Fracture of left wrist: Status: Acute Assessment and plan: 81 year old female with probable type 1 open Left displaced distal radius and ulna fractures Mechanical slip and fall on ice driveway last night. Isolated left wrist injury. Small bleeding abrasion volar radial wrist. No prior wrist problems. Very active, lives alone, and denies any other injuries. Left wrist pain controlled by medicines. Able to demonstrate motor all fingers and thumb. Sensory intact throughout to light touch. Splint taken down to inspect wrist, forearm compartments all soft, moderate wrist edema. Small volar radial wound that is probably a poke hole to the distal radius fracture although it could be skin tear as the skin is quite frail about the wrist. No obvious fat droplets or ongoing bleeding. Previous bandage had dry blood. Bandage change. We will reassess skin tear versus open fracture again later today. Sugar-tong splint rewrapped. Cefazolin antibiotics ordered, continuous through surgery at this time. Maintain elevation. Multimodal pain control ordered anti-inflammatories and pain medications. N.p.o. pending OR We discussed options for wrist surgery including closed reduction and splinting, possible irrigation debridement, and unlikely ORIF. Clean type I open fracture could reasonably be treated with appropriate antibiotics and close monitoring. Significant pre-existing left hand and wrist arthrosis and this injury is intra- articular, but that splint is nondisplaced, the displacement is largely [id number] advanced age and remarkable pre-existing degenerative jayant nges probably does not warrant ORIF. Decision made to proceed with procedure today. The risks, benefits, and alternatives were thoroughly discussed. Patient was counseled regarding pain management, expected postoperative course, and recovery timeline. All questions were answered. Informed consent will be completed in the OR holding area. Patient agrees and understands treatment plan Will likely remain inpatient overnight for pain control, IV antibiotics, with potential discharge home tomorrow Appreciate medical assistance. [facility] All Active Problems (Updated 11/26/22 @ 06:03 by Dave Burch MD) Fracture of left wrist (Acute 11/25/22) Surgical wound dehiscence (Acute) Fracture of right distal radius (Acute) Right rib fracture (Acute) Cellulitis (Acute) Chest pain (Acute) Hemoptysis (Acute) Right upper lobe pulmonary infiltrate (Acute) COPD (chronic obstructive pulmonary disease) (Chronic) HTN (hypertension) (Chronic) Medical History C. 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) S/P appendectomy Family History Mother Leukemia Hypertension Father Bladder cancer Emphysema of lung Social History Smoking/Tobacco Use Status: Former Tobacco Use Smoking risk assessment performed?: Yes Alcohol Intake: current Alcohol Intake frequency: holidays/special occasions only Drug use: Never Substance use type: does not use Details: stopped smoking 20 years ago Do you feel safe at home: Yes Do you feel safe in your relationship?: Yes Results Last Vital Signs Temp 98.4 F 11/26/22 00:25 Pulse 65 11/26/22 00:25 Resp 16 11/26/22 00:25 BP 152/83 H 11/26/22 00:25 Pulse Ox 95 11/26/22 00:25 Labs 11/25/22 23:35 11/25/22 23:35 Labs: Laboratory Results - last 24 hr 11/25/22 11/25/22 11/25/22 23:35 23:35 23:40 WBC 11.35 H RBC 4.02 Hgb 13.1 Hct 39.4 MCV 98 H MCH 32.6 MCHC 33.2 RDW 13.8 Plt Count 282 MPV 9.2 Immature Gran % 0.3 Neutrophils % 81.3 Lymphocytes % 13.5 Monocytes % 4.0 Eosinophils % 0.6 Basophils % 0.3 Nucleated RBC % 0.0 Absolute Neutrophils 9.23 H Absolute Lymphocytes 1.53 Absolute Monocytes 0.45 Absolute Eosinophils 0.07 Absolute Basophils 0.03 Sodium 140 Potassium 3.7 Chloride 106 Carbon Dioxide 23.9 Anion Gap 10.1 BUN 34 H Creatinine 1.0 Est GFR (CKD-EPI 2020) 56.60 Glucose 127 H Calcium 9.1 Total Bilirubin 0.4 AST 22 ALT 28 Alkaline Phosphatase 94 Total Protein 7.7 Albumin 4.4 COVID-19 Source Nasal/Nares SARS-CoV-2 (PCR) Negative
[2022-11-26] MEDS: ceFAZolin 1 GM/50 ML BAG IVPB ×3 (06:38→22:01)
[2022-11-26] MEDS: traMADol 50 MG TAB PO ×2 (07:38→17:13)
[2022-11-26] MEDS: dilTIAZem CD 120 MG CAPCR PO (07:39)
[2022-11-26] MEDS: Mirabegron 50 MG TABCR PO (07:39)
[2022-11-26] MEDS: Lisinopril 20 MG TAB PO (07:39)
[2022-11-26] MEDS: Naproxen 500 MG TAB PO ×2 (07:39→21:59)
--- NOTE | 2022-11-26 08:00 | RT.EKG_ITS ---
APPROVED REPORT Exam: Resting ECG Reason for Exam: hypertension Patient Location: I HR:58 bpm ECG Measurements Heart Rate 58 AXIS WY 198 P -5 QRSd 109 QRS -23 QT 471 T 1 QTc 463 Conclusion Sinus rhythm...normal P axis, V-rate 50- 99 Atrial premature complex...SV complex w/ short R-R interval Left ventricular hypertrophy...multiple voltage criteria Anteroseptal NM, age indeterminate
--- NOTE | 2022-11-26 09:39 | PDOC.CMIN ---
- If Service Date Differs Date of service: 11/26/22 Time of Service: 09:39 Care Management Initial Assess REASON FOR HOSPITALIZATION:: Left Wrist Fracture PAST MEDICAL HISTORY/PAST SURGICAL HISTORY:: All Active Problems. Fracture of left wrist (Acute 11/25/22). Surgical wound dehiscence (Acute). Fracture of right distal radius (Acute). Right rib fracture (Acute). Cellulitis (Acute). Chest pain (Acute). Hemoptysis (Acute). Right upper lobe pulmonary infiltrate (Acute). COPD (chronic obstructive pulmonary disease) (Chronic). HTN (hypertension) (Chronic). Medical History. C. difficile diarrhea (~09/2019). History of gastroesophageal reflux (GERD). History of SCC (squamous cell carcinoma) of skin (~2016). completely excised from right neck. Lumbar spondylosis. Meningioma. Restless leg syndrome. Thoracic aortic ectasia. Urinary frequency. Surgical History. History of total right hip arthroplasty (~2014). History of total right knee replacement (~2016). S/P appendectomy PREVIOUS FUNCTIONAL STATUS/SOCIAL/FAMILY SUPPORTS:: Rocio lives in [place], [place]. She is independent at baseline. ADVANCE DIRECTIVES:: On File, Demetrio Howell listed as agent. Ariana Molina listed as alternate agent. Has patient been provided with info about the portal/API?: Yes Did the patient sign up for the portal?: No CODE STATUS:: Full Code (Advance Directive states DNR) INSURANCE COVERAGE / FINANCIAL ISSUES:: [facility]/ [employer] [facility] supplement CURRENT HOME/COMMUNITY SERVICES/EQUIPMENT:: None PRIMARY CARE PHYSICIAN:: Winifred Gamez POTENTIAL DISCHARGE NEEDS:: Evaluations for further needs, follow up appointments. PATIENT/FAMILY EDUCATION NEEDS:: Review discharge instructions and limitations, discussion of self care needs including ask me three. ANTICIPATED BARRIERS TO DISCHARGE:: None identified at this time. TRANSPORTATION:: Via private vehicle PLAN:: Juliette is scheduled to go to the OR today. Anticipate she will return home once medically cleared. Evaluations needed to determine need for services. She will be driven home via private vehicle by friend vs RCT. She will follow up with her PCP and discharge plan of care. CM will continue to follow.
--- NOTE | 2022-11-26 09:49 | MCONE_ITS ---
Date of service: 11/26/22 Time of Service: 08:00 Assessment and Plan Assessment and plan (1) Fracture of left wrist: Status: Acute Assessment and plan: The wrist is splinted adequately and will be operated on later today by orthopedics. (2) COPD (chronic obstructive pulmonary disease): Status: Chronic Assessment and plan: This problem appears stable. Will order combivent. Orthopedics has ordered incentive spirometry and I agree with this. (3) HTN (hypertension): Status: Chronic Assessment and plan: Her hypertension is stable at the present time and I have reordered her anti- hypertensives. Her labs are normal at this time. Her ECG has been done and I see no change compared to August 2020. I think she is a suitable candidate for surgery today. History of Present Illness History of Present Illness Chief Complaint: left wrist pain Narrative: This 81-year-old female presented to the emergency department last night because of a fall that she suffered at 8:30 PM at her home. She states she was helping someone to get up the driveway when she slipped on the ice and landed on her left wrist. She did not hit her head. She was found to have a fractured wrist with a possible open fracture. She said that there was quite a bit of bleeding from the wrist when she fell. She was admitted to the hospital to the orthopedic service and medical consultation was requested. She has a history of hypertension, arthritis and chronic obstructive lung disease. She quit smoking about 20 years ago or possibly even 25 years ago. She does get short of breath when she walks upstairs or walks uphill. She uses Combivent at home about once a day and states she does not use it any more than this. She says her breathing status has been stable. She is not known to have a heart disease but she does get chest pain which she attributes to can pression fractures of her back. She had back surgery at [facility] last June but she says it did not help very much. She has been back there to discuss situation with the neurosurgeons but she says there is no other surgeries that can be done on her back. She lives by herself and she was admitted because of the probable compound fracture and because she cannot take care of herself at home with this displaced fracture. She does not have any family but she says she has close friends that will attend to her if she needs help.The man's name is Krish Molina. Has a history of sciatica. She states she uses hydrocodone tablets with acetaminophen about 3 times a week for her chronic arthritis pain. Her pain is worse when she sits. Review of Systems Constitutional Constitutional: Denies chills, Denies fever(s), Denies frequent falls and Denies headache(s) ENT Ears, Nose, Mouth, and Throat: Denies headache(s) Cardiovascular Cardiovascular: Reports chest pain, Reports chest pain at rest, Denies rapid heart rate, Denies leg edema, Denies palpitations and Reports dyspnea on exertion Respiratory Respiratory: Denies chest congestion, Denies cough and Reports dyspnea on exertion Gastrointestinal Gastrointestinal: Denies abdominal pain, Denies change in bowel habits, Denies heartburn and Denies vomiting Genitourinary Genitourinary: Denies difficulty voiding and Denies dysuria Musculoskeletal Musculoskeletal: Denies abnormal gait and Reports back pain Neurologic Neurologic: Denies abnormal gait, Denies frequent falls and Denies headache(s) Endocrine Endocrine: Denies palpitations PFSH All Active Problems (Updated 11/26/22 @ 06:03 by Dave Burch MD) Fracture of left wrist (Acute 11/25/22) Surgical wound dehiscence (Acute) Fracture of right distal radius (Acute) Right rib fracture (Acute) Cellulitis (Acute) Chest pain (Acute) Hemoptysis (Acute) Right upper lobe pulmonary infiltrate (Acute) COPD (chronic obstructive pulmonary disease) (Chronic) HTN (hypertension) (Chronic) Medical History C. 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) S/P appendectomy Family History Mother Leukemia Hypertension Father Bladder cancer Emphysema of lung Social History Smoking/Tobacco Use Status: Former Tobacco Use Smoking risk assessment performed?: Yes Alcohol Intake: current Alcohol Intake frequency: holidays/special occasions only Drug use: Never Substance use type: does not use Details: stopped smoking 20 years ago Do you feel safe at home: Yes Do you feel safe in your relationship?: Yes Exam Const General: cooperative, healthy appearing, no acute distress and well groomed Nutritional Appearance: average body habitus Orientation: alert, awake and oriented x3 Other: She has a very pleasant personality. HENMT Head: normal to inspection, normocephalic and atraumatic Neck Neck: normal visual inspection, no lymphadenopathy and no JVD Resp Auscultation: clear to auscultation bilaterally, no rales and no wheezes Cardio Rate: regular rate Rhythm: regular rhythm Heart Sounds: S1 normal, S2 normal, no gallops and no murmurs GI Palpation: soft, no hepatosplenomegaly and nontender Extrem General: normal to inspection, no pedal edema and no calf tenderness Other: Splint is in place of the left forearm and hand. She has intact light touch sensation to the fingertips and capillary refill is normal. Results Last Vital Signs Temp 36.4 C L 11/26/22 06:36 Pulse 68 11/26/22 06:36 Resp 16 11/26/22 06:36 BP 144/75 H 11/26/22 06:36 Pulse Ox 94 11/26/22 06:36 Labs 11/25/22 23:35 11/25/22 23:35 Labs: Laboratory Results - last 24 hr 11/25/22 11/25/22 11/25/22 23:35 23:35 23:40 WBC 11.35 H RBC 4.02 Hgb 13.1 Hct 39.4 MCV 98 H MCH 32.6 MCHC 33.2 RDW 13.8 Plt Count 282 MPV 9.2 Immature Gran % 0.3 Neutrophils % 81.3 Lymphocytes % 13.5 Monocytes % 4.0 Eosinophils % 0.6 Basophils % 0.3 Nucleated RBC % 0.0 Absolute Neutrophils 9.23 H Absolute Lymphocytes 1.53 Absolute Monocytes 0.45 Absolute Eosinophils 0.07 Absolute Basophils 0.03 Sodium 140 Potassium 3.7 Chloride 106 Carbon Dioxide 23.9 Anion Gap 10.1 BUN 34 H Creatinine 1.0 Est GFR (CKD-EPI 2020) 56.60 Glucose 127 H Calcium 9.1 Total Bilirubin 0.4 AST 22 ALT 28 Alkaline Phosphatase 94 Total Protein 7.7 Albumin 4.4 COVID-19 Source Nasal/Nares SARS-CoV-2 (PCR) Negative
[2022-11-26] MEDS: HYDROmorphone 2 MG TAB PO ×3 (11:53→21:59)
--- NOTE | 2022-11-26 12:21 | ANES.PREOP_ITS ---
General Info Date of Service Date Performed: 11/26/22 Height: 5 ft 7 in Weight: 61.9 kg Body Mass Index (BMI): 21.4 Surgical Procedure: Operation Date: 11/26/22 13:55 Proposed Procedure Side Surgeon p Closed Reduction Left Dave Burch MD s Possible I&D Dave Burch MD Meds Allergies and Home Medications Allergies Allergy/AdvReac Type Severity Reaction Status Date / Time morphine Allergy Severe Psychosis Unverified 11/25/22 22:25 Penicillins Allergy Intermediate Hives Unverified 11/25/22 22:25 Home Medication Medication Instructions Recorded lisinopril 20 mg tablet 20 mg PO DAILY 05/26/19 diltiazem HCl 120 mg 120 mg PO DAILY 09/06/20 capsule,extended release 24 hr (Cartia XT) acetaminophen 500 mg tablet 500 mg PO Q6H PRN PRN pain #40 tabs 06/21/21 hydromorphone 2 mg tablet 2 mg PO Q6H PRN pain #7 tabs 04/29/22 gabapentin 300 mg capsule 300 - 900 mg PO QPM PRN 11/25/22 mirabegron 50 mg tablet,extended 50 mg PO 11/25/22 release 24 hr (Myrbetriq) Current Visit Medications: Current Medications Generic Name Dose Route Start Last Admin Trade Name Freq PRN Reason Stop Dose Admin Acetaminophen 1,000 mg 11/26/22 05:58 Acetaminophen 500 Mg Tab PO Q6H PRN PRN Albuterol/Ipratropium 1 puff 11/26/22 09:48 Ipratropium/Albuterol 4 Gm 120 Puff Inh IH QID PRN PRN Dyspnea Device 1 each 11/26/22 10:00 Inhaler, Assist Device DIRECTED MIKE Diltiazem HCl 120 mg 11/26/22 08:30 11/26/22 07:39 Diltiazem Cd 120 Mg Capcr PO 120 mg DAILY MIKE Administration Diphenhydramine HCl 25 mg 11/26/22 05:58 Diphenhydramine 25 Mg Cap PO Q6H PRN PRN Docusate Sodium 100 mg 11/26/22 05:58 Docusate Sodium 100 Mg Cap PO BID PRN PRN Gabapentin 300 - 900 mg 11/26/22 09:30 Gabapentin 300 Mg Cap PO HS PRN PRN Hydromorphone HCl 0.5 mg 11/26/22 01:01 11/26/22 07:36 Hydromorphone 2 Mg/Ml Syr IVP 0.5 mg Q2H PRN PRN Administration Hydromorphone HCl 2 mg 11/26/22 06:00 11/26/22 11:53 Hydromorphone 2 Mg Tab PO 2 mg Q6H PRN PRN Administration pain Sodium Chloride 500 mls @ 0 mls/hr 11/25/22 23:30 11/26/22 03:50 Saline 500ml Bag IV 30 mls/hr PRN PRN Infusion As Directed Acetaminophen 1,000 mg in 100 mls @ 400 mls/hr 11/25/22 23:32 11/26/22 04:10 Ofirmev IVPB Infused Q6H PRN PRN Infusion Cefazolin Sodium/Dextrose 1 gm in 50 mls @ 100 mls/hr 11/26/22 06:00 11/26/22 08:33 Ancef Duplex IVPB 11/28/22 22:29 Infused Q8H MIKE Infusion IV Miscellaneous Supplies 1 each 11/25/22 23:30 Iv Access IV DIRECTED MIKE Lactobacillus Acidophilus/Casei 1 cap 11/26/22 18:00 L. Acidophilus, Casei, Rhamnosus Cap PO DAILY MIKE Lisinopril 20 mg 11/26/22 08:30 11/26/22 07:39 Lisinopril 20 Mg Tab PO 20 mg DAILY MIKE Administration Mirabegron 50 mg 11/26/22 08:30 11/26/22 07:39 Mirabegron 50 Mg Tabcr PO 50 mg DAILY MIKE Administration Naproxen 250 - 500 mg 11/26/22 05:58 11/26/22 07:39 Naproxen 500 Mg Tab PO 500 mg BID PRN PRN Administration Ondansetron HCl 4 mg 11/25/22 23:32 11/25/22 23:47 Ondansetron 4 Mg/2 Ml Vial IVP 4 mg Q4H PRN PRN Administration Sodium Chloride 0 ml 11/25/22 23:30 11/26/22 08:34 Normal Saline Flush 10 Ml Syr IVP 10 ml PRN PRN Administration Tramadol HCl 50 mg 11/26/22 05:58 11/26/22 07:38 Tramadol 50 Mg Tab PO 50 mg Q6H PRN PRN Administration PFSH Active Problems Active Problems: Problem Status Onset Code Fracture of left wrist 11/25/22 S62.102A Surgical wound dehiscence T81.31XA Fracture of right distal radius S52.501A Right rib fracture S22.31XA Cellulitis L03.90 Chest pain R07.9 Hemoptysis R04.2 Right upper lobe pulmonary infiltrate R91.8 COPD (chronic obstructive pulmonary disease) J44.9 HTN (hypertension) I10 Medical History Medical History C. 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 Lumbar spondylosis Meningioma Restless leg syndrome Thoracic aortic ectasia Urinary frequency Surgical History Surgical History History of total right hip arthroplasty (~2014) History of total right knee replacement (~2016) S/P appendectomy Tobacco Smoking/Tobacco Use Status: Former Tobacco Use Alcohol Alcohol Intake: current Alcohol intake frequency: holidays/special occasions only Substance Use Substance use: Never Substance use type: does not use Details: stopped smoking 20 years ago Vital Signs and Lab Results Vital Signs Most Recent Vital Signs in EMR: Most Recent Vital Signs Temp Pulse Resp BP Pulse Ox 36.4 C L 68 16 144/75 H 94 11/26/22 06:36 11/26/22 06:36 11/26/22 06:36 11/26/22 06:36 11/26/22 06:36 Lab Results 11/25/22 23:35 11/25/22 23:35 Blood Type / Crossmatch: No Data to Display Complete Blood Count: White Blood Count 11.35 10^3/uL (4.4-10.8) H 11/25/22 23:35 Red Blood Count 4.02 10^6/uL (3.93-5.22) 11/25/22 23:35 Hemoglobin 13.1 g/dL (11.2-15.7) 11/25/22 23:35 Hematocrit 39.4 % (36.0-46.0) 11/25/22 23:35 Platelet Count 282 10^3/uL (130-400) 11/25/22 23:35 Complete Metabolic Panel: Sodium 140 mmol/L (136-145) 11/25/22 23:35 Potassium 3.7 mmol/L (3.5-5.1) 11/25/22 23:35 Chloride 106 mmol/L (98-107) 11/25/22 23:35 Carbon Dioxide 23.9 mmol/L (21.0-32.0) 11/25/22 23:35 BUN 34 mg/dL (7-18) H 11/25/22 23:35 Creatinine 1.0 mg/dL (0.55-1.02) 11/25/22 23:35 Est GFR (CKD-EPI 2020) 56.60 (mL/min/1.73m2) 11/25/22 23:35 Calcium 9.1 mg/dL (8.5-10.1) 11/25/22 23:35 Albumin 4.4 g/dL (3.4-5.0) 11/25/22 23:35 Glucose 127 mg/dL (74-106) H 11/25/22 23:35 Liver Function Panel: Alanine Aminotransferase (ALT/SGPT) 28 U/L (14-59) 11/25/22 23: 35 Aspartate Amino Transf (AST/SGOT) 22 U/L (15-37) 11/25/22 23:35 Coagulation Panel: No Data to Display Cardiac Panel: No Data to Display Arterial Blood Gas: No Data to Display Venous Blood Gas: No Data to Display Pancreas Panel: No Data to Display Thyroid Panel: No Data to Display Infectious Disease: Coronavirus (COVID-19)(PCR) Negative (Negative) 11/25/22 23:40 Coronavirus 2019 Source Nasal/Nares 11/25/22 23:40 Blood Cultures: No Data to Display Toxicology Panel: No Data to Display Imaging and Studies Imaging and Studies Study information below may be from another EMR and interpreted by another provider. Please see original notes in EMR for more complete details. EKG Summary: 12/03: sinus, PACs, LVH. Anesthesia Assessment and Plan Anesthesia History Personal History: No History of Anesthesia Complications Family History: No Family History of Anesthesia Complications Exercise Tolerance Exercise Tolerance: Metabolic Equivalents>4 Cardiac & Pulmonary Exam Cardiac Exam: Normal S1/S2 Heart Sounds Pulmonary Exam: Clear Bilateral Breath Sounds Implantable Cardiac Device Does patient have a Pacemaker or an ICD?: No Airway Exam Known Difficult Airway: No Mallampati Class: 2 Mouth Opening: Normal (> 3cm) Thyromental Distance: Greater than 3 cm Neck Range of Motion: Full ROM Neck Circumference: Normal Teeth Condition: Normal Dentition ASA Classification ASA Score: ASA 3 Emergency Case?: No NPO Status NPO Status: NPO Clears >2 hours, Solids >8 hours Anesthesia Plan Resuscitation Status: Full Code Anesthesia Technique: General Anesthesia Airway Planned: LMA Pain Management: Other (rescue) Monitors Used: Standard Monitors Preoperative Comments:: 81 yo female for closed reduction I/D, wrist. currently inpt, hydromorphone for pain. cefazolin 1 gram - last dose 1300. Sig PMHx: COPD (SOB with exertion, feels she is doing well), HTN, GERD (denies), RLS, former smoker, occ EtOH.
--- NOTE | 2022-11-26 14:30 | DI.RAD_ITS ---
Exam(s) XR WRIST LT COMPLETE EXAM: XR WRIST LT COMPLETE CLINICAL HISTORY: LEFT WRIST FRACTURE. TECHNIQUE: 2D and realtime digital imaging was performed. COMPARISON: CR,XR XR WRIST LT COMPLETE from 11/25/2022 FINDINGS: Hard copy images shows some improvement in the alignment of the comminuted distal radial fracture and placement of a splint. Please see procedure note for details. Fluoro time: 6seconds RADIATION DOSE DELIVERED: yolie Little=0.11 mGy
--- NOTE | 2022-11-26 14:40 | NUR.NOTE ---
Nursing Note: @1430 pt sbar to OR nurse and transfer of care. pt aox4. no acute distress.
--- NOTE | 2022-11-26 14:44 | CHAPLAIN ---
Juliette was in bed when I visited, with her hand and arm elevated. She told me she was going to surgery shortly to repair her wrist. She fell on the ice. Juliette lives in [place] and said she very much likes living there. She doesn't have any relatives nearby, but has friends who have been checking in on her, she said.
[2022-11-26] MEDS: Lactated Ringers 1,000 ML 30 ML IV (14:45)
--- NOTE | 2022-11-26 15:24 | W.ANESPOSTOP ---
Postoperative Evaluation Date, Time and Location Date Performed: 11/26/22 Time Performed: 15:25 Patient Location: PACU Vital Signs Most Recent Imported Vital Signs: Most Recent Vital Signs Temp Pulse Resp BP Pulse Ox 36.4 C L 68 16 144/75 H 94 11/26/22 06:36 11/26/22 06:36 11/26/22 06:36 11/26/22 06:36 11/26/22 06:36 Pain Score Most Recent Pain Score: Most Recent Pain Score Pain Level 7 11/26/22 12:53 Assessment Mental Status: Arousable with meaningful communication Airway and Respiratory Function: Patent airway with normal (patient baseline) respiratory exam Cardiovascular Function: Hemodynamically Stable Hydration Status: Adequately Hydrated Nausea & Vomiting: No Nausea or Vomiting Pain: Other (pain in wrist 7/10, also pain in back and leg. will do nerve block. ) Peripheral Nerve Block: Regional nerve block not resolved at time of post operative discharge
--- NOTE | 2022-11-26 15:44 | W.ANESNERVE ---
Nerve Block Single Injection Procedure Date and Time Date Performed: 11/26/22 Procedure Start: 15:44 Location Where Procedure Performed Procedure Location: PACU Reason Performed: Postoperative Analgesia Requesting Provider: Dave Burch Timeout Performed Timeout Performed: Yes Monitoring Used ECG, Blood Pressure and SpO2 Sterility Sterility: Hand Hygiene, Surgical Cap, Surgical Mask, Sterile Gloves and Chlorhexidine Sedation Given During Procedure Sedation Given (Indicate Dose Given): No Sedation given Patient Mental Status Patient Mental Status: Awake Nerve Block 1st Nerve Block: Laterality: Left Block Type: Supraclavicular Ultrasound Image Saved?: Yes Needle / Catheter Used: 100mm SonoPlex II Local Anesthetic Bolus (Indicate Dose Given): Lidocaine used for local infiltration of skin, Bupivacaine 0.5% Dose:: 12 mL and Exparel Dose:: 7 Additives (Indicate Dose Given): None Ultrasound: Sterile probe cover and gel used Nerve Stimulator: Supplement to Ultrasound use and No twitch or parasthesia noted < 0.5 mA Paresthesia: None Procedure Tolerated: No Complications Procedure Outcome: Successful Performed By: Wade Epperson
--- NOTE | 2022-11-26 15:50 | ROE_ITS ---
Date of service: 11/26/22 Time of Service: 15:30 Operative Note Operative Note DATE OF PROCEDURE: 11/26/22 PRE-OP DIAGNOSIS: Left displaced distal radius and distal ulna fractures, probably type I open POST-OP DIAGNOSIS: same PROCEDURE: Left distal radius closed treatment with manipulation under anesthesia, CPT #34599 SURGEON: Dave Burch BUS PERSON DISHWASHER: Aster Persaud ANESTHESIA TYPE: General LMA/ETT Refer to Anesthesia Record ESTIMATED BLOOD LOSS: 1 COMPLICATIONS: None Patient was transported to: PACU Patient's condition: stable Indications: Please see complete medical record for details. Procedure Description: In the operating room, general anesthesia was induced. The patient was posi tioned supine on the operating room table. All bony prominences were well- padded. Preoperative antibiotics were needed for closed treatment and the patient was already receiving antibiotics for potential open fracture. The correct patient, procedure, and side of the procedure were all verified prior to beginning. The patient's splint was removed and left wrist examined. There was obvious crepitation of the distal radius distal ulna with dorsal deformity. The contralateral right wrist was examined with remarkable arthritis deformity present there as well. The left volar poke hole wound dressing was removed. There was a small amount of active serous drainage, which now present about 16 hours after injury probably indicative of type I open fracture as a simple skin tear would probably be dried and scabbing over. There was a small about 1 cm superficial skin abrasion about this poke hole. The skin was otherwise intact. The bone position was not really prominent volarly. The single acid operator maneuver was then used, with traction, exaggeration of the deformity, and volarly directed force to quite readily reduce the fracture. There was excellent reduction of the dorsal angulation. The known distal radius arthrosis joint space irregularities were taken into consideration with a fairly non-? displaced intra-articular split still present. There was some radial deviation that was then corrected in the coronal plane with gentle ulnar deviation force. Reduction was appropriate especially considering the profound joint space arthritis present with no plans for internal fixation. The dorsal skin had sloughed off as a skin tear during the initial manipulation. Given the limited soft tissue injury, extremely poor skin quality, decision was made to perform local wound care with hydrogen peroxide volarly about the wound, which was readily cleansed, and also applied dorsally to the skin tear. Additionally, 24 hours IV antibiotics will be ordered to treat the potential open fracture as opposed to formal open approach, exposure of the bone ends, and irrigation and debridement. The dorsal and volar wounds were dressed with Mepilex silver impregnated Band-Aids. A well-padded, appropriately molded plaster sugar-tong splint was then applied to the forearm maintaining the reduced flexion and ulnar deviated position. The patient awoke from anesthesia without complication and was transferred to the recovery room in a stable condition.
--- NOTE | 2022-11-26 15:52 | W.PM.PROGNOT ---
Date of Service Date of service: 11/26/22 Time of Service: 15:53 Assessment and Plan Assessment and plan (1) Open fracture of left distal radius and ulna: Status: Acute Assessment and plan: 81-year-old female postop day #0 status post left distal radius and ulna closed reduction with manipulation and splinting, local wound care for probable type I open fracture and skin tear Patient subjectively complains of heightened pain about the left wrist that is similar to preop. Objectively, she is in no distress, vital signs are reassuring, and she is able to maintain conversation without difficulty. Unfortunate, a post?procedure regional anesthetic nerve block does not seem to have changed her pain sensation. Splint is clean, dry and intact. She is able to demonstrate intact motor and sensory all fingers and thumb. No distress with passive stretch. Not compartment syndrome. Discussed thoroughly with patient. Monitor for any signs of infection or worsening wrist status. 24 hours cefazolin antibiotic ordered for probable poke?hole open fracture Multimodal pain control, strict elevation, encourage gentle range of motion and use fingers and thumb to prevent stiffness increase circulation Maintain sugar-tong splint clean, dry, and intact Consider OT/PT safety evaluation for discharge tomorrow Appreciate medical assistance I will see the patient in the morning Objective Last Vital Signs Temp 97.9 F 11/26/22 15:47 Pulse 65 11/26/22 15:47 Resp 27 H 11/26/22 15:47 BP 192/130 H 11/26/22 15:47 Pulse Ox 98 11/26/22 15:47 Laboratory Results - last 24 hr 11/25/22 11/25/22 11/25/22 23:35 23:35 23:40 WBC 11.35 H RBC 4.02 Hgb 13.1 Hct 39.4 MCV 98 H MCH 32.6 MCHC 33.2 RDW 13.8 Plt Count 282 MPV 9.2 Immature Gran % 0.3 Neutrophils % 81.3 Lymphocytes % 13.5 Monocytes % 4.0 Eosinophils % 0.6 Basophils % 0.3 Nucleated RBC % 0.0 Absolute Neutrophils 9.23 H Absolute Lymphocytes 1.53 Absolute Monocytes 0.45 Absolute Eosinophils 0.07 Absolute Basophils 0.03 Sodium 140 Potassium 3.7 Chloride 106 Carbon Dioxide 23.9 Anion Gap 10.1 BUN 34 H Creatinine 1.0 Est GFR (CKD-EPI 2020) 56.60 Glucose 127 H Calcium 9.1 Total Bilirubin 0.4 AST 22 ALT 28 Alkaline Phosphatase 94 Total Protein 7.7 Albumin 4.4 COVID-19 Source Nasal/Nares SARS-CoV-2 (PCR) Negative Time Spent with Patient Time Spent with Patient: <25 minutes Time was spent: preparing to see the patient(eg.review tests), obtaining and/or reviewing separately otained hiistory, ordering medications,tests, procedures, referring, communicating with other health medical care administrator, indepentently interpreting results and counseling the patient
[2022-11-26] MEDS: HYDROmorphone 2 MG/ML SYR IVP ×3 (16:09→16:29)
--- NOTE | 2022-11-26 16:46 | W.ANESPOSTOP ---
Postoperative Evaluation Date, Time and Location Date Performed: 11/26/22 Time Performed: 16:46 Patient Location: PACU Vital Signs Most Recent Imported Vital Signs: Most Recent Vital Signs Temp Pulse Resp BP Pulse Ox 36.6 C 63 14 216/88 H 94 11/26/22 16:31 11/26/22 16:31 11/26/22 16:31 11/26/22 16:31 11/26/22 16:31 Most Recent Vital Signs Temp Pulse Resp BP Pulse Ox 36.4 C L 68 16 144/75 H 94 11/26/22 06:36 11/26/22 06:36 11/26/22 06:36 11/26/22 06:36 11/26/22 06:36 Pain Score Most Recent Pain Score: Most Recent Pain Score Pain Level 9 11/26/22 16:31 Assessment Mental Status: Awake (Alert & Oriented to Patient Baseline) Airway and Respiratory Function: Patent airway with normal (patient baseline) respiratory exam Cardiovascular Function: Hemodynamically Stable Hydration Status: Adequately Hydrated Nausea & Vomiting: No Nausea or Vomiting Pain: Pain is Moderate or Severe Postoperative Pain Management: Ongoing pain, patient will be managed as an inpatient Peripheral Nerve Block: Regional nerve block not resolved at time of post operative discharge
[2022-11-26] MEDS: Acetaminophen 500 MG TAB 1000 MG PO (17:12)
[2022-11-27] MEDS: traMADol 50 MG TAB PO ×2 (03:38→10:24)
[2022-11-27] MEDS: Acetaminophen 500 MG TAB 1000 MG PO ×2 (03:38→08:28)
[2022-11-27] MEDS: HYDROmorphone 2 MG/ML SYR 0.5 MG IVP ×2 (03:39→12:21)
[2022-11-27 03:40] VITALS: BP 180/81; PULSE 69; RESP 17; TEMP 36.6; O2SAT 95
[2022-11-27] MEDS: ceFAZolin 1 GM/50 ML BAG IVPB (05:04)
[2022-11-27] MEDS: Normal Saline Flush 10 ML SYR IVP (05:05)
[2022-11-27 08:11] VITALS: BP 169/78; PULSE 62; RESP 18; TEMP 36; O2SAT 94
[2022-11-27] MEDS: Mirabegron 50 MG TABCR PO (08:28)
[2022-11-27] MEDS: dilTIAZem CD 120 MG CAPCR PO (08:29)
[2022-11-27] MEDS: Naproxen 500 MG TAB PO (08:29)
[2022-11-27] MEDS: Lisinopril 20 MG TAB PO (08:30)
--- NOTE | 2022-11-27 09:29 | DSE_ITS ---
Date of service: 11/27/22 Time of Service: 10:27 DS: Diagnosis Discharge Diagnosis (1) Open fracture of left distal radius and ulna: Status: Acute Asessment and Plan: 81 year old female post-op day #1 status post left distal radius and ulna closed reduction, local wound care, and antibiotics for type I open fracture on 11/26/22. Patient reports that her wrist is comfortable at rest but she has severe pain with movement and must use her other arm to support it. She reports that pain seems worse today than it was yesterday. Reports generalized wrist pain. Denies any elbow or shoulder discomfort. She reports that finger movement does not reproduce wrist pain. Denies any numbness or tingling. She also reports that she is worried about going home as she lives alone and has no family in the area t hat can help her and she's not sure if any of her friends are available. Discharge Plan Disposition Patient Disposition: Home Condition: Stable Discharge Details Reason For Visit: Left Wrist Fracture Admit Date/Time: 11/25/22 23:30 Admit Provider: Dave Burch Attending Provider: Dave Burch Primary Care Provider: Winifred Gamez Hospital Course Hospital Course: Admitted type 1 open left distal radius and ulna fractures, successfully closed reduced 11/26/22, completed 24 hours of antibiotics. Home Meds and New Rx's Prescriptions: New naproxen 250 mg tablet 250 - 500 mg PO BID PRN (Reason: moderate pain and swelling) Qty: 40 0RF hydromorphone 2 mg tablet 2 mg PO .Q4-6h MDD 12 mg PRN (Reason: severe pain) Qty: 18 0RF Continued lisinopril 20 mg Tablet 20 mg PO DAILY acetaminophen 500 mg tablet 500 mg PO Q6H PRN PRN (Reason: pain) Qty: 40 3RF diltiazem HCl [Cartia XT] 120 mg Capsule,Extended Release 24hr 120 mg PO DAILY hydromorphone 2 mg tablet 2 mg PO Q6H PRN (Reason: pain) Qty: 7 0RF gabapentin 300 mg capsule 300 - 900 mg PO QPM PRN Patient Comments: Take 1 to 3 capsule by mouth every night as needed for sleep and restless legs Myrbetriq 50 mg tablet extended release 24 hr 50 mg PO Patient Comments: Take 1 tablet by mouth once a day for urinary problems Discharge Instructions Instructions: Wrist Fracture in Adults (DC) Additional Instructions: Surgery 11/26/22 Left distal radius and ulna closed reduction, local wound care, and antibiotics for type I open fracture Activity: Nonweightbearing left upper extremity. Strict elevation to minimize swelling and discomfort. Wiggle fingers and thumb to prevent stiffness and increase range of motion. May use sling when up and about to support splint. Prescriptions: Naproxen 250 mg take 1-2 every 12 hours with a meal as needed for moderate pain Hydromorphone 2 mg take 1 every 4-6 hours as needed for severe pain You may use [id number] Tylenol (acetaminophen) as needed for mild pain. These pain medications may be taken all at once or in different combinations as needed. Also, recommend Colace (docusate) as a stool softener as surgery and pain medi cine cause constipation. You may try lsiz-lus-mtazcup diphenhydramine (Benadryl) 25-50 mg nightly as a sleep aid Dressings: Leave splint and dressing in place until follow-up. Keep clean and dry at all times. Follow-up: 10-[address] Burch Let us know right away if you develop any redness, drainage, fevers, chest pain, or trouble breathing. Please call the office during business hours with any questions or concerns. Stand Alone Forms: Nursing Discharge Form Referrals: Dave Burch MD [ [facility] STAFF PHYSICIAN] - (Please call Wednesday to make a follow up appointment with Dr. Burch for 10-14 days.) Activity:: NWB LUE Equipment/Supplies:: Splint Diet:: As Tolerated Discharge Orders Discharge Orders: Discharge Order (Routine); Ordered 11/27/22 Ordered By: Aster Persaud Discharge Data Discharge Date/Time-TO BE ENTERED AT DEPARTURE: 11/27/22 13:06 DS: Summary Time Spent with Patient providing and/or coordinating discharge services: Less than 30 minutes Status at Discharge Functional status at discharge: independent ambulation Overall status at discharge: patient is progressing back to baseline Mental Status: mental status grossly normal Speech and Movement: speech and movement normal Mood: congruent mood Affect: normal affect Exam Narrative Exam Narrative: On exam, patient is resting comfortably in bed with left arm propped up on pillows. Does not appear to be in any acute distress. Splint is clean, dry, and intact. Moderate generalized swelling of all digits on the left hand. Ecchymosis of the thumb. Wiggles fingers without any discomfort. No discomfort with passive flexion and extension of the fingers. Sensation intact to light touch. Normal capillary refill. Psych Mental Status: mental status grossly normal Speech and Movement: speech and movement normal Mood: congruent mood Affect: normal affect DS: Data Vitals/I&O Vitals and I&O: Vital Signs Temperature 96.8 F L 11/27/22 08:11 Temperature Source Tympanic 11/27/22 08:11 Pulse 62 11/27/22 08:11 Pulse Rhythm Regular 11/26/22 23:52 Respiratory Rate 18 11/27/22 08:11 Respiratory Effort Normal, Non-Labored 11/27/22 08:21 Respiratory Depth Normal 11/27/22 08:21 Respiratory Pattern Normal 11/27/22 08:21 Blood Pressure 169/78 H 11/27/22 08:11 Blood Pressure Mean 150 11/26/22 15:47 Blood Pressure Position Supine 11/26/22 15:47 Pulse Oximetry 94 11/27/22 08:11 Oxygen Delivery Method Room Air 11/27/22 08:11 Oxygen Flow Rate 0 11/27/22 08:11 Pain Level 9 11/27/22 08:28 Comment RN Notified 11/27/22 03:40 Intake & Output 11/26/22 11/26/22 11/27/22 11:59 23:59 11:59 Intake Total 670.5 / 1941.0 1270.5 / 1941.0 50 / 50 Output Total 550 / 900 350 / 900 Balance 120.5 / 1041.0 920.5 / 1041.0 50 / 50 Weight 136 lb 7.458 oz 136 lb 7.458 oz Intake: IV 670.5 / 1491.0 820.5 / 1491.0 50 / 50 Oral 450 / 450 Output: Urine 550 / 900 350 / 900 Other: Urine Color Yellow Yellow Urine Appearance Clear Clear Urine Odor Strong None Emesis Description None Voiding Methods Toilet Toilet PFSH All Active Problems Open fracture of left distal radius and ulna (Acute 11/25/22) Surgical wound dehiscence (Acute) Fracture of right distal radius (Acute) Right rib fracture (Acute) Cellulitis (Acute) Chest pain (Acute) Hemoptysis (Acute) Right upper lobe pulmonary infiltrate (Acute) COPD (chronic obstructive pulmonary disease) (Chronic) HTN (hypertension) (Chronic) Medical History C. 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) S/P appendectomy Family History Mother Leukemia Hypertension Father Bladder cancer Emphysema of lung Social History Smoking/Tobacco Use Status: Former Tobacco Use Smoking risk assessment performed?: Yes Alcohol Intake: current Alcohol Intake frequency: holidays/special occasions only Drug use: Never Substance use type: does not use Details: stopped smoking 20 years ago Do you feel safe at home: Yes Do you feel safe in your relationship?: Yes Time Spent with Patient Time Spent with Patient: <45 minutes Time was spent: preparing to see the patient(eg.review tests), obtaining and/or reviewing separately otained hiistory, ordering medications,tests, procedures, referring, communicating with other health career and technology education teacher, counseling the patient and care coordination
[2022-11-27] MEDS: HYDROmorphone 2 MG TAB PO (10:25)
--- NOTE | 2022-11-27 11:00 | NUR.NOTE ---
Nursing Note: @1026, pt was upset that this rn could not administer pain medications at 0930. this rn explained that unfortunately circumstances arouse that made it difficult to return at the specific time. pt states that im upset because you didnt even say sorry, and im in a lot of pain. this rn did apologize for making pt upset.
[2022-11-27 12:07] VITALS: BP 170/90
[2022-11-27 12:25] VITALS: BP 200/81; PULSE 66; RESP 18; TEMP 36.6; O2SAT 95
--- NOTE | 2022-11-27 13:05 | NUR.NOTE ---
Nursing Note: pt with 8/10 pain and manual BP of 170/90 at 1130. All PO PRN meds given. IV dilaudid administered. Pt supposed to be dc'd at 1300. Dr Burch contacted to be made aware that pt's pain is not totally controlled with PO meds, is he still okay with her dc? He said yes. He also said if patient has pain over the weekend that she will need to contact medicine as he is not utilization reviewer.
--- NOTE | 2022-11-27 14:21 | PDOC.CMDIS ---
- If Service Date Differs Date of service: 11/27/22 Time of Service: 14:21 LACE Index Scoring Tool - Questions: Length of Stay (in days): 2 Acuity (Admit via E.D.?): Yes Comorbidities: Chronic Pulmonary Disease E.D. Visits: 3 - Answers: Total Score: 10 Risk of Readmission: High Risk Care Management Discharge Reason for Hospitalization: Left Wrist Fracture Discharge Plan: Rocio was discharged today, and is planning to stay with friends for a while, during her recovery. Her friend drove her home via private vehicle. She will follow up with surgical services, and her discharge plan of care. Patient/Family Education Needs: Review discharge instructions and limitations, discussion of self care needs including ask me three.
== END 2022-11-27 13:06 | disposition home or self-care (01) | DRG 563 ==
LOC: ER 11-26 00:06 → MS 11-26 00:09
PROVIDERS: Admitting Provider Student in an Organized Health Care Education/Training Program; Emergency Provider Student in an Organized Health Care Education/Training Program; PCP Family Medicine; Visit Provider Student in an Organized Health Care Education/Training Program
PROC: 0PSJXZZ Reposition Left Radius, External Approach (ICD-10-PCS; CPT 25605; principal; 2022-11-26 13:45)
DX: S52.502B Unspecified fracture of the lower end of left radius, initial encounter for open fracture type I or II (principal); S52.602B Unspecified fracture of lower end of left ulna, initial encounter for open fracture type I or II; W00.0XXA Fall on same level due to ice and snow, initial encounter; G25.81 Restless legs syndrome; R35.0 Frequency of micturition; K21.9 Gastro-esophageal reflux disease without esophagitis; I77.810 Thoracic aortic ectasia; Z87.891 Personal history of nicotine dependence
CPT/HCPCS: 25605; 76942; 80053; 87635; 96374; 96375; 99223; 99285; 73110; 85025; 93005; 93010; J0131; J0690; J1170; J2405; J3010

== ENCOUNTER 2022-12-08 09:51 | Outpatient (CLI) | payer MEDICARE, SELFPAY ==
--- NOTE | 2022-12-08 09:30 | DI.RAD_ITS ---
Exam(s) XR WRIST LT LIMITED EXAM: XR WRIST LT LIMITED CLINICAL HISTORY: f/u fracture. TECHNIQUE: 2D digital imaging was performed of the left wrist. Two images were obtained. PA and la teral views were obtained. COMPARISON: CR XR FINGER LT INDEX from 02/03/2021 CR,XR XR WRIST LT COMPLETE from 11/25/2022 XA XR WRIST LT COMPLETE from 11/26/2022 FINDINGS: Examination is limited due to the overlying cast material. BONES: There has been no change in alignment of the fracture compared to the posterior duct of films from 11/26/2022. No bony destructive lesion is seen. JOINTS: There is again seen widening of the scapholunate distance consistent with a tear. This was p resent in January of 2021 prior to the fracture. Degenerative changes are seen in the wrist characterize d by joint space narrowing and bony hypertrophy. SOFT TISSUE: Normal. IMPRESSION: There does not appear to be any significant change in alignment of the comminuted distal radial fract ure since 11/26/2022. DATA REPOSITORY: RADIATION DOSE DELIVERED:
== END 2022-12-08 09:52 | disposition home or self-care (01) ==
LOC: DIORS 09:51
PROVIDERS: PCP Family Medicine; Referring Provider Family Medicine; Visit Provider Student in an Organized Health Care Education/Training Program
DX: S52.502E Unspecified fracture of the lower end of left radius, subsequent encounter for open fracture type I or II with routine healing (principal); S52.602E Unspecified fracture of lower end of left ulna, subsequent encounter for open fracture type I or II with routine healing; X58.XXXD Exposure to other specified factors, subsequent encounter
CPT/HCPCS: 73100

== ENCOUNTER 2022-12-23 13:07 | Outpatient (CLI) | payer MEDICARE, SELFPAY ==
--- NOTE | 2022-12-23 13:18 | DI.RAD_ITS ---
Exam(s) XR WRIST LT LIMITED EXAM: XR WRIST LT LIMITED CLINICAL HISTORY: f/u fx. TECHNIQUE: 2D digital imaging was performed. COMPARISON: CR XR WRIST LT LIMITED from 12/08/2022 FINDINGS: Three views taken through fiberglass cast material: Again noted is severely comminuted intra-articular fracture of distal radius. Previously described proximal carpal row abnormalities again evident which may be chronic. There is an element of positive ulnar variance again noted. IMPRESSION: DATA REPOSITORY: RADIATION DOSE DELIVERED:
== END 2022-12-23 13:08 | disposition home or self-care (01) ==
LOC: DIORS 13:07
PROVIDERS: PCP Family Medicine; Referring Provider Family Medicine; Visit Provider Student in an Organized Health Care Education/Training Program
DX: S52.572E Other intraarticular fracture of lower end of left radius, subsequent encounter for open fracture type I or II with routine healing; X58.XXXD Exposure to other specified factors, subsequent encounter
CPT/HCPCS: 73100

== ENCOUNTER 2023-01-06 15:18 | Outpatient (CLI) | payer MEDICARE, SELFPAY ==
--- NOTE | 2023-01-06 14:45 | DI.RAD_ITS ---
Exam(s) XR WRIST LT LIMITED EXAM: XR WRIST LT LIMITED INDICATION: fx f/u. COMPARISON: CR XR WRIST LT LIMITED from 12/23/2022 TECHNIQUE: 2D digital imaging was performed. Two views. FINDINGS: The cast has been removed. There has been no change in the alignment of the comminuted intra-articul ar fracture.No change in carpal alignment and degenerative changes. DATA REPOSITORY: RADIATION DOSE DELIVERED:
== END 2023-01-06 15:19 | disposition home or self-care (01) ==
LOC: DIORS 15:18
PROVIDERS: PCP Family Medicine; Referring Provider Family Medicine; Visit Provider Student in an Organized Health Care Education/Training Program
DX: S52.572E Other intraarticular fracture of lower end of left radius, subsequent encounter for open fracture type I or II with routine healing (principal); X58.XXXD Exposure to other specified factors, subsequent encounter
CPT/HCPCS: 73100

== ENCOUNTER 2023-01-09 11:40 | Emergency (ER) | payer MEDICARE, SELFPAY ==
[2023-01-09 11:44] VITALS: BP 137/73; PULSE 64; RESP 18; TEMP 36.8; O2SAT 97
--- NOTE | 2023-01-09 11:45 | DI.RAD_ITS ---
Exam(s) XR HAND LT COMPLETE XR WRIST LT COMPLETE EXAM: XR HAND LT COMPLETE and XR wrist LT complete CLINICAL HISTORY: pain s/p fall, fractured wrist 6 weeks ago. TECHNIQUE: 2D digital imaging was performed of the left hand. Six views were obtained. AP, lateral and oblique views were obtained. COMPARISON: CR XR FINGER LT INDEX from 02/03/2021 CR XR WRIST LT LIMITED from 12/08/2022 CR XR WRIST LT LIMITED from 12/23/2022 CR XR WRIST LT LIMITED from 01/06/2023 FINDINGS: BONES: There is again seen a comminuted impacted displaced fracture involving the distal radius. Raffaele devorah formation has developed about the fracture suggesting some interval healing. There does not appe ar to be any significant change in alignment of the fracture compared to the prior examination. No n ew fracture or dislocation is identified. JOINTS: There is again seen widening of the scapholunate distance consistent with a ligament tear. P roximal migration of the capitate is again noted and unchanged. There is calcification of the TFCC. Degenerative changes are seen in the hand and wrist characterized by joint space narrowing and bony hypertrophy. The findings are most marked in the interphalangeal joints of the fingers. SOFT TISSUE: Normal. IMPRESSION: 1. Stable distal radial fracture. 2. No new fracture or dislocation. DATA REPOSITORY: RADIATION DOSE DELIVERED:
--- NOTE | 2023-01-09 11:57 | W.ED.GENAD ---
Discharge Plan Disposition Patient Disposition: Home Condition: Stable Discharge Details Clinical Impression: Contusion of right wrist, Contusion of hand, right Primary Care Provider: Winifred Gamez ED Provider: Demetrio Vazquez Home Meds and New Rx's Prescriptions: Continued lisinopril 20 mg Tablet 20 mg PO DAILY acetaminophen 500 mg tablet 500 mg PO Q6H PRN PRN (Reason: pain) Qty: 40 3RF diltiazem HCl [Cartia XT] 120 mg Capsule,Extended Release 24hr 120 mg PO DAILY hydromorphone 2 mg tablet 2 mg PO Q6H PRN (Reason: pain) Qty: 7 0RF gabapentin 300 mg capsule 300 - 900 mg PO QPM PRN Patient Comments: Take 1 to 3 capsule by mouth every night as needed for sleep and restless legs Myrbetriq 50 mg tablet extended release 24 hr 50 mg PO Patient Comments: Take 1 tablet by mouth once a day for urinary problems Discharge Instructions Instructions: Contusion in Adults (ED) Additional Instructions: The xrays did not show a new broken bone follow up with orthopedics if pain isn't improving in a week if you feel more ill, have severe worsening pain or new pain such as chest pain return to the emergency department Medical Decision Making 82 yo female with hx of htn, who had an open left wrist fracture approximately 6 weeks ago and had a cast removed this past comes in with left wrist pain. She states she was gardening yesterday and tripped landing on her left wrist, denies hitting her head or loc. She has pain in the lateral left wrist and also base of the left thumb with some swelling in this area and bruising. She has limited rom of the left wrist due to pain, full rom of the thumb and fingers, intact sensation and cap refill, no tenderness in the forearm, elbow, humerus or shoulder, no midline c spine tenderness. Suspect fracture vs sprain vs contusion, will proceed with xrays imaging shows no new fracture from prior, similar to appearance of xray done on 01/06 in follow up. She is stable, she already has a wrist splint which I encouraged her to wear, she will f/u with ortho if pain isn't improving, return precautions given Differential Diagnosis Differential Diagnosis: fracture, contusion, sprain Medical Records Medical records reviewed: Yes I reviewed the patient's medical records. Imaging Data Radiologic Study: Attestation: I personally reviewed and interpreted this imaging study as follows: Imaging: X-Ray Radiologist's impression: PROCEDURE INFORMATION: Exam: XR Left Hand Exam date and time: 01/09/2023 12:19 PM Age: 82 years old Clinical indication: Injury or trauma; Other: Pain S/P fall, fractured wrist ~6 weeks ago TECHNIQUE: Imaging protocol: Radiologic exam of the left hand. Views: 3 or more views. COMPARISON: CR XR WRIST LT LIMITED 01/06/2023 2:58 PM FINDINGS: Bones/joints: Fracture of the distal radius again noted similar to prior exam. No significant ulnar fracture identified. Degenerative changes in the wrist joint. 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 No fracture identified in the hand. Soft tissues: Unremarkable. IMPRESSION: 1. Distal radial fracture again noted similar to prior exam. 2. No fracture identified in the hand. Radiologic Study #2: Attestation: I personally reviewed and interpreted this imaging study as follows: Imaging: X-Ray Radiologist's impression: PROCEDURE INFORMATION: Exam: XR Left Wrist Exam date and time: 01/09/2023 12:21 PM Age: 82 years old Clinical indication: Injury or trauma; Other: Pain S/P fall, fractured wrist ~6 weeks ago TECHNIQUE: Imaging protocol: Radiologic exam of the left wrist. Views: 3 or more views. COMPARISON: CR XR WRIST LT LIMITED 01/06/2023 2:58 PM FINDINGS: Bones/joints: Distal radial fracture again noted similar to prior exam. No ulnar fracture identified. Joint space narrowing with sclerosis and subchondral cysts in the wrist again noted. Soft tissues: Unremarkable. IMPRESSION: Distal radial fracture again noted similar to prior exam. [facility] General Mode of arrival: ambulatory. Date/Time Provider Initiated Documentation: 01/09/23 11:40. Limitations to Documentation: no limitations. Information obtained by: patient. History of Present Illness 82 year old F presents to the emergency department with the chief complaint of left wrist pain, described as moderate, Quality is described as aching, Patient reports no radiation. Patient started experiencing this day(s) (1) and it has been constant. Rest improves symptom(s), Movement worsens symptoms . Patient notes no other symptoms.. Patient did receive the following treatments prior to arrival, other (acetaminophen) Related Data Home Medications Medication Instructions Recorded Confirmed lisinopril 20 mg tablet 20 mg PO DAILY 05/26/19 01/06/23 diltiazem HCl 120 mg 120 mg PO DAILY 09/06/20 01/06/23 capsule,extended release 24 hr (Cartia XT) acetaminophen 500 mg tablet 500 mg PO Q6H PRN PRN pain #40 tabs 06/21/21 01/06/23 hydromorphone 2 mg tablet 2 mg PO Q6H PRN pain #7 tabs 04/29/22 01/06/23 gabapentin 300 mg capsule 300 - 900 mg PO QPM PRN 11/25/22 01/06/23 mirabegron 50 mg tablet,extended 50 mg PO 11/25/22 01/06/23 release 24 hr (Myrbetriq) Previous Rx's Medication Instructions Recorded acetaminophen 500 mg tablet 500 mg PO Q6H PRN PRN pain #40 tabs 06/21/21 hydromorphone 2 mg tablet 2 mg PO Q6H PRN pain #7 tabs 04/29/22 Allergies Allergy/AdvReac Type Severity Reaction Status Date / Time morphine Allergy Severe Psychosis Unverified 01/06/23 14:33 Penicillins Allergy Intermediate Hives Unverified 01/06/23 14:33 General Stated Complaint: Orthopedic CASEY: 4 Review of Systems All systems reviewed & are unremarkable except as noted in HPI and below Constitutional Constitutional: Denies chills, Denies fever(s) and Denies weakness Cardiovascular Cardiovascular: Denies chest pain and Denies dyspnea Respiratory Respiratory: Denies cough and Denies dyspnea Gastrointestinal Gastrointestinal: Denies abdominal pain, Denies nausea and Denies vomiting Neurologic Neurologic: Denies weakness PFSH All Active Problems (Updated 01/09/23 @ 13:07 by Demetrio Vazquez MD) Contusion of right wrist (Acute) Contusion of hand, right (Acute) Open fracture of left distal radius and ulna (Acute 11/25/22) Right rib fracture (Acute) Cellulitis (Acute) Chest pain (Acute) Hemoptysis (Acute) Right upper lobe pulmonary infiltrate (Acute) COPD (chronic obstructive pulmonary disease) (Chronic) HTN (hypertension) (Chronic) Medical History (Updated 01/09/23 @ 13:07 by Demetrio Vazquez MD) C. difficile diarrhea (~09/2019) Fracture of right distal radius History of gastroesophageal reflux (GERD) History of SCC (squamous cell carcinoma) of skin (~2017) completely excised from right neck Lumbar spondylosis Meningioma Restless leg syndrome Surgical wound dehiscence Thoracic aortic ectasia Urinary frequency Surgical History History of total right hip arthroplasty (~2014) History of total right knee replacement (~2017) S/P appendectomy Family History Mother Leukemia Hypertension Father Bladder cancer Emphysema of lung Social History Smoking/Tobacco Use Status: Former Tobacco Use Smoking risk assessment performed?: Yes Alcohol Intake: current Alcohol Intake frequency: holidays/special occasions only Drug use: Never Substance use type: does not use Details: stopped smoking 20 years ago Current gender identity: female Do you feel safe at home: Yes Do you feel safe in your relationship?: Yes Exam Const General: no acute distress Orientation: alert HENMN Head: normal to inspection Ears: external ears normal General nose exam: external nose normal Mouth: moist mucous membranes Eyes General: appearance normal, both eyes and all related structures Neck Neck: normal visual inspection Resp Effort & Inspection: normal respiratory effort and able to speak in complete sentences Cardio Rate: regular rate GI Palpation: soft and nontender Skin General skin exam: no rashes or lesions noted Neuro General: patient alert and patient oriented x3 Extrem General: capillary refill normal Right upper extremity: ROM limited Psych Mental Status: mental status grossly normal Course Vital Signs Vital signs: Vital Signs Temperature 36.8 C 01/09/23 11:44 Pulse 64 01/09/23 11:44 Respiratory Rate 18 01/09/23 11:44 Blood Pressure 137/73 01/09/23 11:44 Pulse Oximetry 97 01/09/23 11:44 Temperature 36.8 C 01/09/23 11:44 Temperature Source Skin 01/09/23 11:44 Pulse 64 01/09/23 11:44 Respiratory Rate 18 01/09/23 11:44 Blood Pressure 137/73 01/09/23 11:44 Blood Pressure Position Sitting 01/09/23 11:44 Pulse Oximetry 97 01/09/23 11:44 Oxygen Delivery Method Room Air 01/09/23 11:44 Oxygen Flow Rate 0 01/09/23 11:44 Pain Level 5 01/09/23 11:44 Comment tylenol this morning at 0830 01/09/23 11:44
[2023-01-09] MEDS: Ibuprofen 600 MG TAB PO (11:59)
--- NOTE | 2023-01-09 12:52 | DI.VRAD_ITS ---
PROCEDURE INFORMATION: Exam: XR Left Wrist Exam date and time: 01/09/2023 12:21 PM Age: 82 years old Clinical indication: Injury or trauma; Other: Pain S/P fall, fractured wrist \R\6 weeks ago TECHNIQUE: Imaging protocol: Radiologic exam of the left wrist. Views: 3 or more views. COMPARISON: CR XR WRIST LT LIMITED 01/06/2023 2:58 PM FINDINGS: Bones/joints: Distal radial fracture again noted similar to prior exam. No ulnar fracture identified. Joint space narrowing with sclerosis and subchondral cysts in the wrist again noted. Soft tissues: Unremarkable. IMPRESSION: Distal radial fracture again noted similar to prior exam. Dictated and Authenticated by: Vikash Torrez MD. Ordering:DEACON Atkinson MD
--- NOTE | 2023-01-09 12:52 | DI.VRAD_ITS ---
PROCEDURE INFORMATION: Exam: XR Left Hand Exam date and time: 01/09/2023 12:19 PM Age: 82 years old Clinical indication: Injury or trauma; Other: Pain S/P fall, fractured wrist \R\6 weeks ago TECHNIQUE: Imaging protocol: Radiologic exam of the left hand. Views: 3 or more views. COMPARISON: CR XR WRIST LT LIMITED 01/06/2023 2:58 PM FINDINGS: Bones/joints: Fracture of the distal radius again noted similar to prior exam. No significant ulnar fracture identified. Degenerative changes in the wrist joint. 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 No fracture identified in the hand. Soft tissues: Unremarkable. IMPRESSION: 1. Distal radial fracture again noted similar to prior exam. 2. No fracture identified in the hand. Dictated and Authenticated by: Vikash Torrez MD. Ordering:DEACON Atkinson MD
== END 2023-01-09 13:11 | disposition home or self-care (01) ==
PROVIDERS: Emergency Provider Emergency Medicine; PCP Family Medicine
DX: S60.211A Contusion of right wrist, initial encounter (principal); I10 Essential (primary) hypertension; W18.40XA Slipping, tripping and stumbling without falling, unspecified, initial encounter; Y93.H2 Activity, gardening and landscaping
CPT/HCPCS: 99283; 73110; 73130

== ENCOUNTER 2023-02-03 14:19 | Outpatient (CLI) | payer MEDICARE, SELFPAY ==
--- NOTE | 2023-02-03 13:45 | DI.RAD_ITS ---
Exam(s) XR WRIST LT LIMITED EXAM: XR WRIST LT LIMITED CLINICAL HISTORY: F/U FRACTURE. TECHNIQUE: 2D digital imaging was performed. COMPARISON: CR,XR XR WRIST LT COMPLETE from 01/09/2023 FINDINGS: 3 views Again noted is a previously described comminuted impacted and displaced fracture of distal radius whi ch again exhibits some callus formation and no further displacement. Also again noted is the significantly widened scapholunate distance consistent with disruption of the interosseous ligament at this level and proximal migration of the capitate into the scapholunate spa ce is again noted, previously described. Calcification also noted in the triangular fibrocartilage o n the medial aspect of the wrist. There is no fracture of the distal ulna. There is mild positive u lnar variance again noted. IMPRESSION: Minimal if any significant change when compared to 01/09/2023. DATA REPOSITORY: RADIATION DOSE DELIVERED:
== END 2023-02-03 14:20 | disposition home or self-care (01) ==
LOC: DIORS 14:19
PROVIDERS: PCP Family Medicine; Referring Provider Family Medicine; Visit Provider Student in an Organized Health Care Education/Training Program
DX: X58.XXXA Exposure to other specified factors, initial encounter (principal); S52.502B Unspecified fracture of the lower end of left radius, initial encounter for open fracture type I or II; S52.602B Unspecified fracture of lower end of left ulna, initial encounter for open fracture type I or II
CPT/HCPCS: 99213; 73100

== ENCOUNTER 2023-02-27 15:36 | Emergency (ER) | payer MEDICARE, SELFPAY ==
[2023-02-27 15:42] VITALS: BP 162/81; PULSE 60; RESP 18; TEMP 36.4; O2SAT 98
--- NOTE | 2023-02-27 15:58 | ED.GENADUL_ITS ---
Discharge Plan Disposition Patient Disposition: Home Condition: Stable Discharge Details Clinical Impression: Dog bite of right lower leg Primary Care Provider: Winifred Gamez ED Provider: Demetrio Vazquez Home Meds and New Rx's Prescriptions: New clindamycin HCl 150 mg capsule 450 mg PO TID 7 Days Qty: 63 0RF Continued lisinopril 20 mg Tablet 20 mg PO DAILY acetaminophen 500 mg tablet 500 mg PO Q6H PRN PRN (Reason: pain) Qty: 40 3RF diltiazem HCl [Cartia XT] 120 mg Capsule,Extended Release 24hr 120 mg PO DAILY hydromorphone 2 mg tablet 2 mg PO Q6H PRN (Reason: pain) Qty: 7 0RF gabapentin 300 mg capsule 300 - 900 mg PO QPM PRN Patient Comments: not taking Myrbetriq 50 mg tablet extended release 24 hr 50 mg PO DAILY Patient Comments: Take 1 tablet by mouth once a day for urinary problems Discharge Instructions Instructions: Animal Bite (ED) Additional Instructions: Keep the wound covered when outside the home If you have spreading redness from the wound, yellow/white discharge or severe pain return to the emergency department Medical Decision Making 82 yo female comes in after her friend's dog bit her right lower leg. No falls or other trauma. She states the dog is utd on rabies vaccines and patient is utd on her tetanus. She has a 2cm superficial laceration on the lateral mid calf with several small puncture wounds approximately 2mm in diameter around it. She has intact distal sensation and pulses, full rom of the ankle and knee. No findings to suggest neurovascular or tendon injury. Discussed with patient risks of closing with sutures and increased risk of infection and she is agreeable to using steri strips and allowing the wound to heal by secondary intention. She is allergic to penicillins so will cover with clindamycin. Return precautions given Differential Diagnosis Differential Diagnosis: laceration, abrasion, dog bite HPI General Mode of arrival: ambulatory . Date/Time Provider Initiated Documentation: 02/27/23 15:49 . Limitations to Documentation: no limitations . Information obtained by: patient . History of Present Illness 82 year old F presents to the emergency department with the chief complaint of dog bite right leg, described as moderate, Patient started experiencing this hour(s) (1) and it has been constant. No relieving factors improve symptom(s), No exacerbating factors reported . Patient notes no other symptoms.. Patient did receive the following treatments prior to arrival, none Related Data Home Medications Medication Instructions Recorded Confirmed lisinopril 20 mg tablet 20 mg PO DAILY 05/26/19 02/27/23 diltiazem HCl 120 mg 120 mg PO DAILY 09/06/20 02/27/23 capsule,extended release 24 hr (Cartia XT) acetaminophen 500 mg tablet 500 mg PO Q6H PRN PRN pain #40 tabs 06/21/21 02/27/23 hydromorphone 2 mg tablet 2 mg PO Q6H PRN pain #7 tabs 04/29/22 02/27/23 gabapentin 300 mg capsule 300 - 900 mg PO QPM PRN 11/25/22 02/03/23 mirabegron 50 mg tablet,extended 50 mg PO DAILY 11/25/22 02/27/23 release 24 hr (Myrbetriq) clindamycin HCl 150 mg capsule 450 mg PO TID 7 days #63 caps 02/27/23 Previous Rx's Medication Instructions Recorded acetaminophen 500 mg tablet 500 mg PO Q6H PRN PRN pain #40 tabs 06/21/21 hydromorphone 2 mg tablet 2 mg PO Q6H PRN pain #7 tabs 04/29/22 clindamycin HCl 150 mg capsule 450 mg PO TID 7 days #63 caps 02/27/23 Allergies Allergy/AdvReac Type Severity Reaction Status Date / Time morphine Allergy Severe Psychosis Unverified 02/27/23 15:46 Penicillins Allergy Intermediate Hives Unverified 02/27/23 15:46 General Stated Complaint: AnimalBite CASEY: 4 Review of Systems All systems reviewed & are unremarkable except as noted in HPI and below Constitutional Constitutional: Denies chills, Denies fever(s) and Denies weakness Cardiovascular Cardiovascular: Denies chest pain and Denies dyspnea Respiratory Respiratory: Denies cough and Denies dyspnea Gastrointestinal Gastrointestinal: Denies abdominal pain, Denies nausea and Denies vomiting Integumentary/Breasts Skin/Breast: Denies rash Neurologic Neurologic: Denies weakness PFSH All Active Problems (Updated 02/27/23 @ 16:25 by Demetrio Vazquez MD) Dog bite of right lower leg (Acute) Open fracture of left distal radius and ulna (Acute 11/25/22) Right rib fracture (Acute) Cellulitis (Acute) Chest pain (Acute) Hemoptysis (Acute) Right upper lobe pulmonary infiltrate (Acute) COPD (chronic obstructive pulmonary disease) (Chronic) HTN (hypertension) (Chronic) Medical History (Updated 02/27/23 @ 16:25 by Demetrio Vazquez MD) C. difficile diarrhea (~09/2019) Fracture of right distal radius History of gastroesophageal reflux (GERD) History of SCC (squamous cell carcinoma) of skin (~2016) completely excised from right neck Lumbar spondylosis Meningioma Restless leg syndrome Surgical wound dehiscence Thoracic aortic ectasia Urinary frequency Surgical History History of total right hip arthroplasty (~2014) History of total right knee replacement (~2016) S/P appendectomy Family History Mother Leukemia Hypertension Father Bladder cancer Emphysema of lung Social History Smoking/Tobacco Use Status: Former Tobacco Use Smoking risk assessment performed?: Yes Alcohol Intake: current Alcohol Intake frequency: holidays/special occasions only Drug use: Never Substance use type: does not use Details: stopped smoking 20 years ago Current gender identity: female Do you feel safe at home: Yes Do you feel safe in your relationship?: Yes Exam Const General: no acute distress Orientation: alert HENCO Head: normal to inspection Ears: external ears normal General nose exam: external nose normal Mouth: moist mucous membranes Eyes General: appearance normal, both eyes and all related structures Neck Neck: normal visual inspection Resp Effort & Inspection: normal respiratory effort and able to speak in complete sentences Cardio Rate: regular rate Skin General skin exam: no rashes or lesions noted Neuro General: patient alert and patient oriented x3 Extrem General: full ROM and capillary refill normal Psych Mental Status: mental status grossly normal Course Vital Signs Vital signs: Vital Signs Temperature 36.4 C L 02/27/23 15:42 Pulse 60 02/27/23 15:42 Respiratory Rate 18 02/27/23 15:42 Blood Pressure 162/81 H 02/27/23 15:42 Pulse Oximetry 98 02/27/23 15:42 Temperature 36.4 C L 02/27/23 15:42 Temperature Source Skin 02/27/23 15:42 Pulse 60 02/27/23 15:42 Respiratory Rate 18 02/27/23 15:42 Respiratory Effort Normal 02/27/23 15:48 Blood Pressure 162/81 H 02/27/23 15:42 Blood Pressure Position Sitting 02/27/23 15:42 Pulse Oximetry 98 02/27/23 15:42 Oxygen Delivery Method Room Air 02/27/23 15:42 Oxygen Flow Rate 0 02/27/23 15:42 Pain Level 1 02/27/23 15:42
[2023-02-27] MEDS: Clindamycin 150 MG CAP 450 MG PO (16:15)
== END 2023-02-27 16:34 | disposition home or self-care (01) ==
PROVIDERS: Emergency Provider Emergency Medicine; PCP Family Medicine
DX: S81.851A Open bite, right lower leg, initial encounter (principal); W54.0XXA Bitten by dog, initial encounter
CPT/HCPCS: 99284

== ENCOUNTER 2023-04-07 13:44 | Outpatient (CLI) | payer MEDICARE, SELFPAY ==
--- NOTE | 2023-04-07 13:00 | DI.RAD_ITS ---
Exam(s) XR WRIST LT LIMITED EXAM: XR WRIST LT LIMITED CLINICAL HISTORY: F/U FRACTURE. TECHNIQUE: 2D digital imaging was performed of the left wrist. Two images were obtained. PA and la teral views were obtained. COMPARISON: CR XR WRIST LT LIMITED from 02/03/2023 FINDINGS: BONES: There has been no change in alignment of the comminuted fracture involving the distal radius. The fracture appears to have healed. No new fractures identified. No bony destructive lesion is se en. JOINTS: There is again seen deformity of the carpus with widening of the scapholunate distance and pr oximal migration of the capitate. Degenerative changes are seen in the wrist characterized by joint space narrowing. SOFT TISSUE: Normal. IMPRESSION: Healed distal left radial fracture. DATA REPOSITORY: RADIATION DOSE DELIVERED:
== END 2023-04-07 13:45 | disposition home or self-care (01) ==
LOC: DIORS 13:44
PROVIDERS: PCP Family Medicine; Referring Provider Family Medicine; Visit Provider Student in an Organized Health Care Education/Training Program
DX: S52.502D Unspecified fracture of the lower end of left radius, subsequent encounter for closed fracture with routine healing (principal); S52.602D Unspecified fracture of lower end of left ulna, subsequent encounter for closed fracture with routine healing; X58.XXXD Exposure to other specified factors, subsequent encounter
CPT/HCPCS: 99213; 73100

== ENCOUNTER → 2023-05-18 08:46 | Outpatient (BNVA) | payer MEDICARE, SELFPAY | PROVIDERS: PCP Family Medicine; Referring Provider Family Medicine; Visit Provider Nurse Practitioner Gerontology | DX: N32.81 Overactive bladder (principal); I10 Essential (primary) hypertension; J44.9 Chronic obstructive pulmonary disease, unspecified | CPT/HCPCS: 51798; 81003; 99214 ==

== ENCOUNTER 2023-06-07 16:07 | Outpatient (REF) | payer MEDICARE, SELFPAY ==
[2023-06-07 19:22] LABS: Anion Gap 10.7 mmol/L (3-11); BUN 22 mg/dL (7-18); CO2 25.3 mmol/L (21.0-32.0); Calcium 10.1 mg/dL (8.5-10.1); Chloride 106 mmol/L (98-107); Estimated GFR 56.25 (mL/min/1.73m2); Glucose 98 mg/dL (74-106); Potassium 4.3 mmol/L (3.5-5.1); Sodium 142 mmol/L (136-145); TSH (W/Ref FT4) 0.91 uIU/mL (0.36-3.74)
== END 2023-06-07 16:08 | disposition home or self-care (01) ==
LOC: NCHCN 16:07
PROVIDERS: PCP Nurse Practitioner Family; Visit Provider Family Medicine
DX: I10 Essential (primary) hypertension (principal); E78.5 Hyperlipidemia, unspecified; R19.7 Diarrhea, unspecified
CPT/HCPCS: 80048; 87493; 87505; 84443

== ENCOUNTER 2023-06-09 14:25 | Outpatient (REF) | payer MEDICARE, SELFPAY ==
[2023-06-10 23:15] LABS: Campylobacter PCR Negative (Negative); Salmonella PCR Negative (Negative); Shiga Toxin PCR Negative (Negative); Shigella/Enteroinvasive Ecoli Negative (Negative)
== END 2023-06-09 14:26 | disposition home or self-care (01) ==
LOC: NCHCN 14:25
PROVIDERS: PCP Nurse Practitioner Family; Visit Provider Family Medicine
DX: R19.7 Diarrhea, unspecified (principal)
CPT/HCPCS: 87505

== ENCOUNTER 2023-06-14 17:59 | Outpatient (REF) | payer MEDICARE, SELFPAY ==
[2023-06-15 00:30] LABS: C Diff PCR Negative (Negative)
== END 2023-06-14 18:00 | disposition home or self-care (01) ==
LOC: NCHCN 17:59
PROVIDERS: PCP Nurse Practitioner Family; Visit Provider Family Medicine
DX: R19.7 Diarrhea, unspecified (principal); I10 Essential (primary) hypertension
CPT/HCPCS: 87493

== ENCOUNTER → 2023-06-21 14:20 | Outpatient (BNVA) | payer MEDICARE, SELFPAY | PROVIDERS: PCP Nurse Practitioner Family; Referring Provider Nurse Practitioner Family; Visit Provider Surgery | DX: K64.8 Other hemorrhoids (principal); K64.4 Residual hemorrhoidal skin tags; R15.9 Full incontinence of feces; K52.9 Noninfective gastroenteritis and colitis, unspecified | CPT/HCPCS: 99214; 99242 ==

== ENCOUNTER → 2023-07-05 13:55 | Outpatient (BNVA) | payer MEDICARE, SELFPAY | PROVIDERS: PCP Family Medicine; Referring Provider Family Medicine; Visit Provider Student in an Organized Health Care Education/Training Program | DX: Z96.641 Presence of right artificial hip joint (principal); Z96.651 Presence of right artificial knee joint; Z96.652 Presence of left artificial knee joint | CPT/HCPCS: 99213 ==

== ENCOUNTER 2023-07-08 13:35 | Outpatient (REF) | payer MEDICARE, SELFPAY ==
[2023-07-08 14:21] LABS: HCT 37.6 % (36.0-46.0); HGB 12.4 g/dL (11.2-15.7); MCH 31.6 pg (27.0-33.0); MCV 96 fL (80-95); MPV 9.5 fL (8.0-11.0); Platelet Count 302 10^3/uL (130-400); RBC 3.93 10^6/uL (3.93-5.22); RDW 12.8 % (11.7-14.6); RDW-SD 45.7 fL; WBC 6.36 10^3/uL (4.4-10.8)
[2023-07-08 16:57] LABS: Abs Immature Grans 0.01 10^3/uL (0.0-0.06); Absolute Basophil Count 0.06 10^3/uL (0.0-0.2); Absolute Eosinophil Count 0.11 10^3/uL (0.0-0.7); Absolute Lymphocyte Count 1.94 10^3/uL (1.2-3.4); Absolute Monocyte Count 0.44 10^3/uL (0.1-0.8); Absolute Neutrophil Count 3.78 10^3/uL (1.2-6.7); Basophils % 0.9; Eosinophils % 1.7; Immature Grans % 0.2; Lymphocytes % 30.6; Monocytes % 6.9; Neutrophils % 59.7
== END 2023-07-08 13:36 | disposition home or self-care (01) ==
LOC: NCHCN 13:35
PROVIDERS: PCP Family Medicine; Visit Provider Family Medicine
DX: R61 Generalized hyperhidrosis (principal); I10 Essential (primary) hypertension
CPT/HCPCS: 85027; 85007

== ENCOUNTER → 2023-07-19 14:12 | Outpatient (BNVA) | payer MEDICARE, SELFPAY | PROVIDERS: PCP Family Medicine; Referring Provider Family Medicine; Visit Provider Nurse Practitioner Gerontology | DX: N39.41 Urge incontinence (principal) | CPT/HCPCS: 99213 ==

== ENCOUNTER → 2023-07-21 00:06 | Outpatient (CLI) | payer MEDICARE, SELFPAY ==
[2023-07-21] MEDS: Gadoterate meglumine 20 ML SYRINGE 12 ML IVP (13:22)
[2023-07-21] MEDS: Normal Saline Flush 10 ML SYR IVP (13:22)
--- NOTE | 2023-07-21 13:45 | DI.MRI_ITS ---
Exam(s) MR BRAIN WO/W EXAM: MR BRAIN WO/W CLINICAL HISTORY: F/U MENINGIOMA,D32.9,HEMORRHAGE,I62.9,WORSENING HEADACHES TECHNIQUE: Multiplanar multisequence MRI of the brain was performed. CONTRAST MATERIAL: IV Contrast: 12 mL of Dotarem contrast administered. COMPARISON: MR MRI BRAIN WWO from 03/09/2023 FINDINGS: VENTRICLES AND EXTRA AXIAL SPACES: Normal in size and morphology for the patient's age. HEMORRHAGE: None. CEREBRAL PARENCHYMA: No focus of restricted diffusion to suggest acute infarct. No space-occupying le vance identified. There are areas of hyperintense signal seen in the white matter on the FLAIR and T2 weighted images most consistent with microvascular ischemic change. MIDLINE SHIFT: None. BRAINSTEM/CEREBELLUM: Normal. CALVARIUM: Normal. ENHANCEMENT: There has been no change in size of the homogeneously enhancing right post parasagittal extra-axial mass consistent with a meningioma. No new enhancing lesions are seen. VISUALIZED PARANASAL SINUSES/MASTOIDS: Clear. TORRES MARTINEZ OF AGUILAR: Normal flow void. PITUITARY GLAND: Unremarkable. OTHER FINDINGS: IMPRESSION: 1. Stable right posterior parasagittal meningioma. 2. No acute intracranial process. DATA REPOSITORY:
== END ==
PROVIDERS: PCP Family Medicine; Visit Provider Family Medicine
DX: D32.0 Benign neoplasm of cerebral meninges (principal); I62.9 Nontraumatic intracranial hemorrhage, unspecified
CPT/HCPCS: 70553

== ENCOUNTER → 2023-07-26 13:12 | Outpatient (BNVA) | payer MEDICARE, SELFPAY | PROVIDERS: PCP Family Medicine; Referring Provider Family Medicine; Visit Provider Podiatrist | DX: L60.3 Nail dystrophy (principal); M79.672 Pain in left foot; B35.1 Tinea unguium | CPT/HCPCS: 11720; 99213 ==

== ENCOUNTER 2023-08-03 10:10 | Day surgery (SDC) | payer MEDICARE, SELFPAY ==
--- NOTE | 2023-08-13 15:01 | ANES_ITS ---
Date of service: 08/13/23 Time of Service: 12:20 Anesthesia Note Report Anesthesia Note: I called ([phone]) to talk with Rocio about her up coming procedure. We discussed that she should be postponed until her stress test as recommended by [facility] due to her chest pain, and change in functional status. We discussed that given her chest pain and recommendation for a stress test that she could have unknown cardiac dz that should be managed prior to her having an elective anesthesia event. We discussed that if she had an undiagnosed cardiac issue that she could have a cardiac event due while under anesthesia and having a procedure. She understands that she needs to have her stress test. She stated that she will reach out to the urology office after her stress test is performed to reschedule her procedure if her stress test is unremarkable.
== END 2023-08-03 10:11 | disposition home or self-care (01) ==
LOC: DSU 09-27 10:10
PROVIDERS: PCP Family Medicine; Visit Provider Urology
DX: Z53.9 Procedure and treatment not carried out, unspecified reason (principal)

== ENCOUNTER 2023-08-18 16:29 | Outpatient (REF) | payer MEDICARE, SELFPAY ==
[2023-08-18 21:39] LABS: BUN 33 mg/dL (7-18); CREATININE 1.5 mg/dL (0.55-1.02); Calcium 9.5 mg/dL (8.5-10.1); Chloride 103 mmol/L (98-107); Estimated GFR 34.58 (mL/min/1.73m2); Glucose 80 mg/dL (74-106); Magnesium 2.4 mg/dL (1.8-2.4); Potassium 4.9 mmol/L (3.5-5.1); Sodium 138 mmol/L (136-145)
== END 2023-08-18 16:30 | disposition home or self-care (01) ==
LOC: NCHCN 16:29
PROVIDERS: PCP Family Medicine; Visit Provider Family Medicine
DX: I10 Essential (primary) hypertension (principal)
CPT/HCPCS: 80048; 80053; 85027; 85652; 87798; 83735; 86140; 86618

== ENCOUNTER → 2023-09-07 01:41 | Outpatient (CLI) | payer MEDICARE, SELFPAY ==
--- NOTE | 2023-09-07 | DI.MRI_ITS ---
Exam(s) MR THORACIC SPINE WO EXAM: MR THORACIC SPINE WO CLINICAL HISTORY: PAIN THORACIC SPINE, M54.6. TECHNIQUE: Multiplanar multisequence MRI of the Thoracic spine was performed. COMPARISON: CT CT CHEST PE CTA from 09/06/2020 MR MR LUMBAR SPINE WO from 10/26/2022 FINDINGS: Bones: The vertebral body heights are well maintained. Alignment is satisfactory. The signal characte ristics are unremarkable. Cord: The thoracic cord is normal size and signal intensity. No intrinsic cord lesion is present. Discs: No disc herniation or bulge is present. Endplate osteophytes throughout. Facet degenerative c hanges greater at the lower thoracic levels. There is neural foraminal narrowing on the left at T12- L1 and L1-2. There is also central canal stenosis at L1-2, moderate. There is encroachment by the l eft facet joint into the central canal at T12-L1 but no overall significant stenosis. Soft tissues: Descending aorta 3.1 cm. IMPRESSION: Degenerative disc changes and facet degenerative changes greatest at T12-L1 and L1-2. DATA REPOSITORY:
== END ==
PROVIDERS: PCP Family Medicine; Visit Provider Family Medicine
DX: M51.36 Other intervertebral disc degeneration, lumbar region (principal)
CPT/HCPCS: 72146

== ENCOUNTER → 2023-09-09 00:05 | Outpatient (CLI) | payer MEDICARE, SELFPAY ==
--- NOTE | 2023-09-09 | DI.NM_ITS ---
APPROVED REPORT Exam: Pharmacologic Patient Location: Out-Patient Room/Bed: Stress Nurse: Bárbara Hall RN Ordering Provider:ROSELIA KATY, Contact Number: [phone] BMI: 22.79 Baseline Rhythm: Sinus Bradycardia Comment: 1st degree AV block Indications: Atypical chest pain, unable to exercise due to SOB, COPD, Medical History Medical History: HTN, COPD, chest pain, meningioma, thoracic aortic ectasia, petechial hemorrhage Cardiac Medications: Lisinopril, diltiazem, vitamin B12, caffeine, hydromorphone, lyrica Allergies: Morphine, penicillins Cardiac Risk Factors: COPD, former smoker, HTN Previous Cardiac Procedures: None Pretest Chest Pain Characteristics: 09/22 chest ache Exercise History: Indeterminate Physical Disabilities: None Lung Sounds: Clear to auscultation Heart Sounds: Bradycardia Stress Test Details Test: Pharmacologic stress was paired with low level exercise. Reason for pharmacologic stress test: Unable to read EKG due to significant artifact. Nuclear Acquisition: Rest Tc-99m/Stress Tc-99m 1 day Rest Isotope: Tc-99m Sestamibi. Dose: 10.0 Date: 09/09/2023 Injection Time: 1105 Stress Isotope: Tc-99m Sestamibi. Dose: 30.0 Date: 09/09/2023 Injection Time: 1300 HR Resting HR Supine: 48 bpm Max Heart Rate (APMHR): 138 bpm Resting HR Standin bpm Target HR (85% APMHR): 117 bpm Max HR Achieved: 92 bpm % of APMHR: 67 Recovery HR: 65 bpm HR response to stress: Normal HR response to stress BP Resting BP Supine: 158/80 mmHg Resting BP Standin/60 mmHg Max BP: 174/74 mmHg Recovery BP: 144/56 mmHg BP response to stress: Normal blood pressure response to stress. ECG Resting ECG: Sinus Bradycardia, 1st degree AV block Ectopy: None Stress ECG: Sinus Rhythm ST Change: Nondiagnostic low heart rate Arrhythmia: Rare PVC Recovery ECG: Sinus Rhythm Recovery ST Change: Nondiagnostic low heart rate Recovery Arrhythmia: Rare PAC Clinical Stress Symptoms: 09/22 chest ache Angina Score: Non-Limiting Rate Pressure Product: [id number] Stress ECG Conclusion 1. 1. Normal clinical,ECG and BP responses 2. 2. Nuclear findings reported separately Stress Test Summary STAGE HR BP SpO2 Symptoms NOTES Supine 48 158/80 Standing 57 136/60 1 min post Lexiscan injection 58 174/74 93 3 min post Lexiscan injection 78 158/60 6 min post Lexiscan injection 67 144/56 MPI Conclusion 1. No ischemia or infarct demonstrated. 2. Normal LV systolic function without wall motion abnormality, EF 58%.
[2023-09-09] MEDS: Regadenoson 0.4 MG/5 ML SYR IVP (13:00)
== END ==
PROVIDERS: PCP Family Medicine; Visit Provider Family Medicine
DX: R07.9 Chest pain, unspecified (principal)
CPT/HCPCS: 78452; 93017; J2785

== ENCOUNTER → 2023-09-20 13:39 | Outpatient (BNVA) | payer MEDICARE, SELFPAY | PROVIDERS: PCP Family Medicine; Referring Provider Family Medicine; Visit Provider Internal Medicine Interventional Cardiology | DX: R07.9 Chest pain, unspecified (principal); I10 Essential (primary) hypertension; J44.9 Chronic obstructive pulmonary disease, unspecified; Z79.51 Long term (current) use of inhaled steroids | CPT/HCPCS: 99213 ==

== ENCOUNTER 2023-09-26 10:57 | Emergency (ER) | payer MEDICARE, SELFPAY ==
[2023-09-26 10:58] VITALS: BP 147/80; PULSE 94; RESP 16; TEMP 36.6; O2SAT 98
--- NOTE | 2023-09-26 11:17 | W.ED.GENAD ---
HPI General Stated Complaint: EarProblem CASEY: 4 Date/Time Provider Initiated Documentation: 09/26/23 11:05. HPI Narrative: 82-year-old female presents with report of left ear pain, 1.5 weeks. Has had upper respiratory symptoms for the past 2 weeks per patient. Ear started hurting shortly thereafter and has persisted despite Sudafed and Flonase use. Denies any chest pain or shortness of breath. Related Data Home Medications Medication Instructions Recorded Confirmed hydromorphone 2 mg tablet 2 mg PO Q6H PRN pain #7 tabs 04/29/22 07/26/23 levalbuterol tartrate 45 2 inh inhalation Q6H PRN 05/18/23 07/26/23 mcg/actuation aerosol inhaler (Xopenex HFA) mecobalamin (vitamin B12) 1,000 2,000 mcg PO DAILY 05/18/23 07/26/23 mcg chewable tablet hydrocortisone 2.5 % topical cream 1 applic topical QID PRN 06/21/23 07/06/23 hemorrhoids #30 grams caffeine 200 mg tablet 200 mg PO DAILY PRN 07/12/23 cholecalciferol (vitamin D3) 25 25 mcg PO DAILY 07/12/23 07/26/23 mcg (1,000 unit) capsule choline 10 mg-lutein 20 cap PO DAILY 07/12/23 07/26/23 mg-zeaxanthin 13 mg-astaxanthin 4 mg capsule (MaculaPF) diltiazem HCl 240 mg 240 mg PO DAILY 07/12/23 07/26/23 capsule,extended release 24 hr lisinopril 40 mg tablet 40 mg PO DAILY 07/12/23 07/26/23 ramelteon 8 mg tablet 8 mg PO QHS 07/12/23 07/26/23 ketoconazole 2 % topical cream 1 applic topical DAILY 3 months 07/26/23 07/26/23 #60 grams doxycycline hyclate 100 mg capsule 100 mg PO BID #14 caps 09/26/23 prednisone 20 mg tablet 40 mg (2 x 20 mg) PO ONCE #6 tabs 09/26/23 Previous Rx's Medication Instructions Recorded hydromorphone 2 mg tablet 2 mg PO Q6H PRN pain #7 tabs 04/29/22 hydrocortisone 2.5 % topical cream 1 applic topical QID PRN 06/21/23 hemorrhoids #30 grams ketoconazole 2 % topical cream 1 applic topical DAILY 3 months 07/26/23 #60 grams doxycycline hyclate 100 mg capsule 100 mg PO BID #14 caps 09/26/23 prednisone 20 mg tablet 40 mg (2 x 20 mg) PO ONCE #6 tabs 09/26/23 Allergies Allergy/AdvReac Type Severity Reaction Status Date / Time morphine Allergy Severe Psychosis Verified 09/26/23 11:05 Penicillins Allergy Intermediate Hives Verified 09/26/23 11:05 PFSH All Active Problems (Updated 09/26/23 @ 11:23 by PIYUSH Campa) Otitis media (Acute) URI, acute (Acute) Pain in left foot (Acute) Nail dystrophy (Acute) Onychomycosis (Acute) Urge incontinence (Acute) DOMINIC (generalized anxiety disorder) (Acute) Restless leg syndrome (Acute) HERMINIO (obstructive sleep apnea) (Chronic) Osteopenia (Acute) Fecal soiling due to fecal incontinence (Acute) Chronic diarrhea (Acute) Fecal incontinence (Acute) External hemorrhoids without complication (Acute) Internal hemorrhoids without complication (Acute) Open fracture of left distal radius and ulna (Acute 11/25/22) Right rib fracture (Acute) Cellulitis (Acute) Chest pain (Acute) Hemoptysis (Acute) Right upper lobe pulmonary infiltrate (Acute) COPD (chronic obstructive pulmonary disease) (Chronic) HTN (hypertension) (Chronic) Medical History Petechial hemorrhage Surgical wound dehiscence Fracture of right distal radius Lumbar spondylosis Thoracic aortic ectasia History of SCC (squamous cell carcinoma) of skin (~2016) completely excised from right neck Meningioma History of gastroesophageal reflux (GERD) C. difficile diarrhea (~09/2019) Urinary frequency Surgical History History of left knee replacement History of total right knee replacement (~2016) History of total right hip arthroplasty (~2014) S/P appendectomy Family History Mother Leukemia Hypertension Father Bladder cancer Emphysema of lung Social History Smoking/Tobacco Use Status: Former Tobacco Use Smoking risk assessment performed?: Yes Alcohol Intake: current Alcohol Intake frequency: holidays/special occasions only Drug use: Never Substance use type: does not use Details: stopped smoking 20 years ago Current gender identity: female Do you feel safe at home: Yes Do you feel safe in your relationship?: Yes Course Vital Signs Vital signs: Vital Signs Temperature 36.6 C 09/26/23 10:58 Pulse 94 H 09/26/23 10:58 Respiratory Rate 16 09/26/23 10:58 Blood Pressure 147/80 H 09/26/23 10:58 Pulse Oximetry 98 09/26/23 10:58 Temperature 36.6 C 09/26/23 10:58 Pulse 94 H 09/26/23 10:58 Respiratory Rate 16 09/26/23 10:58 Blood Pressure 147/80 H 09/26/23 10:58 Pulse Oximetry 98 09/26/23 10:58 Oxygen Delivery Method Room Air 09/26/23 10:58 Oxygen Flow Rate 0 09/26/23 10:58 Medical Decision Making This 82-year-old female presents with left ear pain, respiratory symptoms for the past 2 weeks, ear pain for a week and a half or persistent. Denies fever or chills. Patient is afebrile and nontoxic, she has a bulging left TM with erythema, will treat for otitis media, given she has penicillin allergy will treat with doxycycline for 7 days and prednisone to help eustachian tube drain Encouraged to see primary care physician in 1 week for reassessment with possible ENT referral with persistent symptoms Encouraged to continue Flonase Lungs clear to auscultation, no maxillary or ethmoid tenderness, afebrile and nontoxic, alert and oriented x 4 Return precautions reviewed and patient expressed understanding Quality:SDOH Health Related Social Needs: Health related social needs risk of homeless Discharge Plan Disposition Patient Disposition: Home Discharge Details Clinical Impression: URI, acute, Otitis media Primary Care Provider: Marivel Collins ED Provider: Stephania Dumas Home Meds and New Rx's Prescriptions: New doxycycline hyclate 100 mg capsule 100 mg PO BID Qty: 14 0RF prednisone 20 mg tablet 40 mg PO ONCE Qty: 6 0RF Continued levalbuterol tartrate [Xopenex HFA] 45 mcg/actuation HFA aerosol inhaler 2 inh inhalation Q6H PRN mecobalamin (vitamin B12) 1,000 mcg tablet,chewable 2,000 mcg PO DAILY ketoconazole 2 % cream 1 applic topical DAILY 90 Days Qty: 60 3RF Rx Instructions: Apply to toenails once daily hydrocortisone 2.5 % cream 1 applic topical QID PRN (Reason: hemorrhoids) Qty: 30 12RF ramelteon 8 mg tablet 8 mg PO QHS MaculaPF 10-20-13-4 mg capsule PO DAILY diltiazem HCl 240 mg capsule,extended release 24hr 240 mg PO DAILY lisinopril 40 mg tablet 40 mg PO DAILY cholecalciferol (vitamin D3) 25 mcg (1,000 unit) capsule 25 mcg PO DAILY caffeine 200 mg tablet 200 mg PO DAILY PRN hydromorphone 2 mg tablet 2 mg PO Q6H PRN (Reason: pain) Qty: 7 0RF Discharge Instructions Instructions: Ear Infection (ED), Upper Respiratory Infection (ED) Additional Instructions: You may try using some Afrin nasal spray for the next 3 days, do not continue after that period of time to see if it helps her symptoms Take the prednisone as prescribed to see if it helps decrease the inflammation and drain the fluid behind your ears Continue using the Flonase, use for 2-week period to see if it helps with your symptoms Take the antibiotic as prescribed Yogurt daily while on antibiotic, this is a probiotic so you do not develop an opportunistic stool infection Please return earlier should you have new or worsening complaints or persistence of symptoms Please follow-up with your primary care physician in the outpatient setting Referrals: Marivel Collins [Primary Care Provider] - Discharge Data Discharge Date/Time-TO BE ENTERED AT DEPARTURE: 09/26/23 11:41
[2023-09-26 11:35] VITALS: BP 138/78; PULSE 88; RESP 18; O2SAT 96
== END 2023-09-26 11:41 | disposition home or self-care (01) ==
PROVIDERS: Emergency Provider Physician Assistant; PCP Family Medicine
DX: J06.9 Acute upper respiratory infection, unspecified (principal); H66.92 Otitis media, unspecified, left ear; I10 Essential (primary) hypertension; J44.9 Chronic obstructive pulmonary disease, unspecified; Z87.891 Personal history of nicotine dependence; Z79.899 Other long term (current) drug therapy
CPT/HCPCS: 99283

== ENCOUNTER 2023-10-14 06:57 | Day surgery (SDC) | payer MEDICARE, SELFPAY ==
[2023-10-14 07:09] VITALS: BP 155/82; PULSE 75; RESP 16; TEMP 36.2; O2SAT 94
--- NOTE | 2023-10-14 07:16 | W.PM.HP.N ---
Date of service: 10/14/23 Time of Service: 07:16 Assessment and Plan Assessment and plan (1) Urge incontinence: Status: Acute (2) OAB (overactive bladder): Status: Acute Assessment and plan: She has no neurologic component to her urgency incontinence, so we will use 100 units of Botox injected into the detrusor muscle. History of Present Illness History of Present Illness Chief Complaint: Urgency incontinence Narrative: This is an 82-year-old woman who has a history of urgency incontinence due to an overactive bladder. She has tried and failed antimuscarinic therapy. She presents now for an injection of Botox into the detrusor muscle. Review of Systems Narrative: No fevers or chills No vision change or dysphasia No diabetes or thyroid dysfunction Sleep apnea. No hemoptysis No chest pain or palpitations Fecal incontinence. No nausea, vomiting, hepatitis, ulcers, jaundice No seizures, strokes or peripheral neuropathy No bleeding disorders or anemia No gout PFSH All Active Problems (Updated 10/14/23 @ 07:18 by Smooth Thomas MD) OAB (overactive bladder) (Acute) Otitis media (Acute) URI, acute (Acute) Pain in left foot (Acute) Nail dystrophy (Acute) Onychomycosis (Acute) Urge incontinence (Acute) DOMINIC (generalized anxiety disorder) (Acute) Restless leg syndrome (Acute) HERMINIO (obstructive sleep apnea) (Chronic) Osteopenia (Acute) Fecal soiling due to fecal incontinence (Acute) Chronic diarrhea (Acute) Fecal incontinence (Acute) External hemorrhoids without complication (Acute) Internal hemorrhoids without complication (Acute) Open fracture of left distal radius and ulna (Acute 11/25/22) Right rib fracture (Acute) Cellulitis (Acute) Chest pain (Acute) Hemoptysis (Acute) Right upper lobe pulmonary infiltrate (Acute) COPD (chronic obstructive pulmonary disease) (Chronic) HTN (hypertension) (Chronic) Medical History Petechial hemorrhage Surgical wound dehiscence Fracture of right distal radius Lumbar spondylosis Thoracic aortic ectasia History of SCC (squamous cell carcinoma) of skin (~2016) completely excised from right neck Meningioma History of gastroesophageal reflux (GERD) C. difficile diarrhea (~09/2019) Urinary frequency Surgical History History of left knee replacement History of total right knee replacement (~2016) History of total right hip arthroplasty (~2014) S/P appendectomy Family History Mother Leukemia Hypertension Father Bladder cancer Emphysema of lung Social History Smoking/Tobacco Use Status: Former Tobacco Use Quit Date: 09/13/99 Smoking risk assessment performed?: Yes Alcohol Intake: never Drug use: Never Substance use type: does not use Housing: house Current gender identity: female Do you feel safe at home: Yes Additional Social history: lives alone Meds Allergies and Home Medications Allergies Allergy/AdvReac Type Severity Reaction Status Date / Time morphine Allergy Severe Psychosis Verified 10/14/23 07:16 Penicillins Allergy Intermediate Hives Verified 10/14/23 07:16 Home Medications Medication Instructions Recorded Confirmed Type levalbuterol tartrate 45 2 inh inhalation Q6H PRN 05/18/23 10/14/23 History mcg/actuation aerosol inhaler (Xopenex HFA) mecobalamin (vitamin B12) 1,000 2,000 mcg PO DAILY 05/18/23 10/13/23 History mcg chewable tablet hydrocortisone 2.5 % topical cream 1 applic topical QID PRN 06/21/23 10/14/23 Rx hemorrhoids #30 grams caffeine 200 mg tablet 200 mg PO DAILY PRN 07/12/23 10/14/23 History cholecalciferol (vitamin D3) 25 25 mcg PO DAILY 07/12/23 10/13/23 History mcg (1,000 unit) capsule choline 10 mg-lutein 20 1 cap PO DAILY 07/12/23 10/13/23 History mg-zeaxanthin 13 mg-astaxanthin 4 mg capsule (MaculaPF) diltiazem HCl 240 mg 240 mg PO DAILY 07/12/23 10/14/23 History capsule,extended release 24 hr lisinopril 40 mg tablet 40 mg PO DAILY 07/12/23 10/13/23 History ketoconazole 2 % topical cream 1 applic topical DAILY 3 months 07/26/23 10/14/23 Rx #60 grams hydrocodone 5 mg-acetaminophen 325 tab 10/14/23 History mg tablet Exam Const General: cooperative Neck Neck: supple Resp Effort & Inspection: normal respiratory effort Auscultation: clear to auscultation bilaterally Cardio Rate: regular rate Rhythm: regular rhythm GI Palpation: soft Neuro General: patient alert and patient awake Time Spent Time spent with Patient: <40 minutes Time was spent: other
[2023-10-14] MEDS: Lactated Ringers 1,000 ML 80 ML IV (07:51)
[2023-10-14] MEDS: Sulfameth/Trimeth DS TAB 1 TAB PO (07:51)
--- NOTE | 2023-10-14 08:41 | W.ANESPRE ---
General Info Date of Service Date Performed: 10/14/23 Height: 4 ft 9 in Weight: 56.699 kg Body Mass Index (BMI): 27.0 Surgical Procedure: Operation Date: 10/14/23 08:55 Proposed Procedure Side Surgeon p Cystoscopy/Transurethral Injection of Botox Smooth Thomas MD Meds Allergies and Home Medications Allergies Allergy/AdvReac Type Severity Reaction Status Date / Time morphine Allergy Severe Psychosis Verified 10/14/23 07:16 Penicillins Allergy Intermediate Hives Verified 10/14/23 07:16 Home Medication Medication Instructions Recorded levalbuterol tartrate 45 2 inh inhalation Q6H PRN 05/18/23 mcg/actuation aerosol inhaler (Xopenex HFA) mecobalamin (vitamin B12) 1,000 2,000 mcg PO DAILY 05/18/23 mcg chewable tablet hydrocortisone 2.5 % topical cream 1 applic topical QID PRN 06/21/23 hemorrhoids #30 grams caffeine 200 mg tablet 200 mg PO DAILY PRN 07/12/23 cholecalciferol (vitamin D3) 25 25 mcg PO DAILY 07/12/23 mcg (1,000 unit) capsule choline 10 mg-lutein 20 1 cap PO DAILY 07/12/23 mg-zeaxanthin 13 mg-astaxanthin 4 mg capsule (MaculaPF) diltiazem HCl 240 mg 240 mg PO DAILY 07/12/23 capsule,extended release 24 hr lisinopril 40 mg tablet 40 mg PO DAILY 07/12/23 ketoconazole 2 % topical cream 1 applic topical DAILY 3 months 07/26/23 #60 grams hydrocodone 5 mg-acetaminophen 325 tab 10/14/23 mg tablet Current Visit Medications: Current Medications Generic Name Dose Route Start Last Admin Trade Name Freq PRN Reason Stop Dose Admin OnabotulinumtoxinA 100 units/ 0 units 10/14/23 06:00 Sodium Chloride 20 ml IJ 10/14/23 16:00 TODAY MIKE Ringer's Solution 1,000 mls @ 80 mls/hr 10/14/23 06:00 10/14/23 07:51 IV 11/12/23 23:59 80 mls/hr INFUSION MIKE Administration IV Miscellaneous Supplies 1 each 10/14/23 06:00 Iv Access IV 11/12/23 23:59 DIRECTED MIKE Sodium Chloride 0 ml 10/14/23 06:00 Normal Saline Flush 10 Ml Syr IV 11/12/23 23:59 PRN PRN Sodium Chloride 0 ml 10/14/23 06:00 Normal Saline 10 Ml Vial IJ 11/12/23 23:59 DIRECTED PRN Sterile Water 0 ml 10/14/23 06:00 Water,Injection,Sterile 10 Ml Vial IJ 11/12/23 23:59 DIRECTED PRN Trimethoprim/Sulfamethoxazole 1 tab 10/14/23 06:00 10/14/23 07:51 Sulfameth/Trimeth Ds Tab PO 10/14/23 16:00 1 tab PREOP MIKE Administration PFSH Active Problems Active Problems: Problem Status Onset Code OAB (overactive bladder) N32.81 Otitis media H66.90 URI, acute J06.9 Pain in left foot M79.672 Nail dystrophy L60.3 Onychomycosis B35.1 Urge incontinence N39.41 DOMINIC (generalized anxiety disorder) F41.1 Restless leg syndrome G25.81 HERMINIO (obstructive sleep apnea) G47.33 Osteopenia M85.80 Fecal soiling due to fecal incontinence R15.9 Chronic diarrhea K52.9 Fecal incontinence R15.9 External hemorrhoids without complication K64.4 Internal hemorrhoids without complication K64.8 Open fracture of left distal radius and ulna 11/25/22 S52.502B, S52.602B Right rib fracture S22.31XA Cellulitis L03.90 Chest pain R07.9 Hemoptysis R04.2 Right upper lobe pulmonary infiltrate R91.8 COPD (chronic obstructive pulmonary disease) J44.9 HTN (hypertension) I10 Medical History Medical History Petechial hemorrhage Surgical wound dehiscence Fracture of right distal radius Lumbar spondylosis Thoracic aortic ectasia History of SCC (squamous cell carcinoma) of skin (~2016) completely excised from right neck Meningioma History of gastroesophageal reflux (GERD) C. difficile diarrhea (~09/2019) Urinary frequency Surgical History Surgical History History of left knee replacement History of total right knee replacement (~2016) History of total right hip arthroplasty (~2014) S/P appendectomy Tobacco Smoking/Tobacco Use Status: Former Tobacco Use Alcohol Alcohol Intake: never Substance Use Substance use: Never Substance use type: does not use Vital Signs and Lab Results Vital Signs Most Recent Vital Signs in EMR: Most Recent Vital Signs Temp Pulse Resp BP Pulse Ox 36.2 C L 75 16 155/82 H 94 10/14/23 07:09 10/14/23 07:09 10/14/23 07:09 10/14/23 07:09 10/14/23 07:09 Lab Results Blood Type / Crossmatch: No Data to Display Complete Blood Count: No Data to Display Complete Metabolic Panel: No Data to Display Liver Function Panel: No Data to Display Coagulation Panel: No Data to Display Cardiac Panel: No Data to Display Arterial Blood Gas: No Data to Display Venous Blood Gas: No Data to Display Pancreas Panel: No Data to Display Thyroid Panel: No Data to Display Infectious Disease: No Data to Display Blood Cultures: No Data to Display Toxicology Panel: No Data to Display Imaging and Studies Imaging and Studies Study information below may be from another EMR and interpreted by another provider. Please see original notes in EMR for more complete details. EKG Summary: 12/03: sinus, PACs, LVH. Stress Test Summary: Patient Name: Rocio Lane Unit #: [id number] Loc: Ordering Provider: Roselia Collins Status: REG I Primary Care Provider: Roselia Collins Date of Exam: 09/09/23 Sex: F Admission Date: 09/09/23 : 1940 Age: 82 APPROVED REPORT Exam: Pharmacologic Patient Location: Out-Patient Room/Bed: Stress Nurse: Bárbara Hall RN Ordering Provider:ROSELIA COLLINS, Contact Number: [phone] BMI: 22.79 Baseline Rhythm: Sinus Bradycardia Comment: 1st degree AV block Indications: Atypical chest pain, unable to exercise due to SOB, COPD, Medical History Medical History: HTN, COPD, chest pain, meningioma, thoracic aortic ectasia, petechial hemorrhage Cardiac Medications: Lisinopril, diltiazem, vitamin B12, caffeine, hydromorphone, lyrica Allergies: Morphine, penicillins Cardiac Risk Factors: COPD, former smoker, HTN Previous Cardiac Procedures: None Pretest Chest Pain Characteristics: 09/22 chest ache Exercise History: Indeterminate Physical Disabilities: None Lung Sounds: Clear to auscultation Heart Sounds: Bradycardia Stress Test Details Test: Pharmacologic stress was paired with low level exercise. Reason for pharmacologic stress test: Unable to read EKG due to significant artifact. Nuclear Acquisition: Rest Tc-99m/Stress Tc-99m 1 day Rest Isotope: Tc-99m Sestamibi. Dose: 10.0 Date: 09/09/2023 Injection Time: 1105 Stress Isotope: Tc-99m Sestamibi. Dose: 30.0 Date: 09/09/2023 Injection Time: 1300 HR Resting HR Supine: 48 bpmMax Heart Rate (APMHR): 138 bpm Resting HR Standin bpmTarget HR (85% APMHR): 117 bpm Max HR Achieved: 92 bpm % of APMHR: 67 Recovery HR: 65 bpm HR response to stress: Normal HR response to stress BP Resting BP Supine: 158/80 mmHg Resting BP Standin/60 mmHg Max BP: 174/74 mmHg Recovery BP: 144/56 mmHg BP response to stress: Normal blood pressure response to stress. ECG Resting ECG: Sinus Bradycardia, 1st degree AV block Ectopy: None Stress ECG: Sinus Rhythm ST Change: Nondiagnostic low heart rate Arrhythmia: Rare PVC Recovery ECG: Sinus Rhythm Recovery ST Change: Nondiagnostic low heart rate Recovery Arrhythmia: Rare PAC Clinical Stress Symptoms: 09/22 chest ache Angina Score: Non-Limiting Rate Pressure Product: [id number] Stress ECG Conclusion 1. 1. Normal clinical,ECG and BP responses 2. 2. Nuclear findings reported separately Stress Test Summary [id number] [id number]/80 Evsnevcu28079/60 1 min post Lexiscan [id number] 3 min post Lexiscan [id number]/60 6 min post Lexiscan [id number]/56 MPI Conclusion 1. No ischemia or infarct demonstrated. 2. Normal LV systolic function without wall motion abnormality, EF 58%. Ordered By: Roselia Collins CC: JOVITA WHITTAKER,CHEYENNE SOTO Dictated By: Yolis Rowland M.D. 09/09/23 8405 <Electronically signed by Yolis Rowland M.D. in OV> 09/09/23 1548 Transcribed By: Yolis Rowland MD 09/09/23 2589 This is privileged, confidential information intended only for the provider named. Any use or distribution by any person other than this provider is strictly prohibited. If you receive this report in error, please notify us immediately at [phone] and return the original report to us at the address above. Thank-you. Anesthesia Assessment and Plan Anesthesia History Personal History: No History of Anesthesia Complications Family History: No Family History of Anesthesia Complications Exercise Tolerance Exercise Tolerance: Metabolic Equivalents>4 Pertinent Negatives Pertinent Negatives: No Symptoms of GERD, No Major Cardiovascular Symptoms or Complaints and No History of CVA/TIA Cardiac & Pulmonary Exam Cardiac Exam: Normal S1/S2 Heart Sounds Pulmonary Exam: Clear Bilateral Breath Sounds Implantable Cardiac Device Does patient have a Pacemaker or an ICD?: No Airway Exam Known Difficult Airway: No Mallampati Class: 2 Mouth Opening: Normal (> 3cm) Thyromental Distance: Greater than 3 cm Neck Range of Motion: Full ROM Neck Circumference: Normal Teeth Condition: Normal Dentition ASA Classification ASA Score: ASA 3 Emergency Case?: No NPO Status NPO Status: NPO Clears >2 hours, Solids >8 hours Anesthesia Plan Resuscitation Status: Full Code Anesthesia Technique: General Anesthesia Airway Planned: Natural Airway Monitors Used: Standard Monitors
[2023-10-14 08:42] VITALS: BMI 27.0
[2023-10-14] MEDS: Lidocaine 2% Jelly 11 ML SYR (09:17)
[2023-10-14] MEDS: BOTULINUM TOXIN TYPE A 100 UNITS, Normal Saline 20 ML IJ (09:18)
--- NOTE | 2023-10-14 09:22 | W.PM.DSUDISC ---
Date of service: 10/14/23 Time of Service: 09:23 Discharge Plan Disposition Condition: Stable Discharge Details Reason For Visit: cystoscopy with Botox injection Admit Date/Time: 10/14/23 06:57 Admit Provider: Smooth Thomas Attending Provider: Smooth Thomas Primary Care Provider: Marivel Collins Home Meds and New Rx's Prescriptions: No Action levalbuterol tartrate [Xopenex HFA] 45 mcg/actuation HFA aerosol inhaler 2 inh inhalation Q6H PRN mecobalamin (vitamin B12) 1,000 mcg tablet,chewable 2,000 mcg PO DAILY ketoconazole 2 % cream 1 applic topical DAILY 90 Days Qty: 60 3RF Rx Instructions: Apply to toenails once daily hydrocortisone 2.5 % cream 1 applic topical QID PRN (Reason: hemorrhoids) Qty: 30 12RF MaculaPF 10-20-13-4 mg capsule 1 cap PO DAILY diltiazem HCl 240 mg capsule,extended release 24hr 240 mg PO DAILY lisinopril 40 mg tablet 40 mg PO DAILY cholecalciferol (vitamin D3) 25 mcg (1,000 unit) capsule 25 mcg PO DAILY caffeine 200 mg tablet 200 mg PO DAILY PRN hydrocodone-acetaminophen 5-325 mg tablet Patient Comments: TAKE ONE TABLET BY MOUTH THREE TIMES A DAY NEEDED Discharge Instructions Additional Instructions: call 1 week with progress report followup 5 to 6 months Activity:: Activity as Tolerated Equipment/Supplies:: No Equipment Needed Diet:: As Tolerated DS: Diagnosis Discharge Diagnosis (1) Urge incontinence: Status: Acute (2) OAB (overactive bladder): Status: Acute
--- NOTE | 2023-10-14 09:25 | W.PM.OP ---
Date of service: 10/14/23 Time of Service: 09:25 Operative Note Operative Note DATE OF PROCEDURE: 10/14/23 PRE-OP DIAGNOSIS: Urgency incontinence due to overactive bladder POST-OP DIAGNOSIS: same PROCEDURE: cystoscopy with transurethral injection Botox into detrusor muscle SURGEON: Smooth Thomas ANESTHESIA TYPE: Local By Surgeon and General:No Airway Refer to Anesthesia Record ESTIMATED BLOOD LOSS: 5 PATHOLOGY: none sent COMPLICATIONS: None Patient was transported to: same day Patient's condition: stable Implants: 100 Units Botox Indications: This is an 82-year-old woman who has a history of urinary urgency, frequency and urgency incontinence due to an overactive bladder. She has not had benefit from antimuscarinic therapy. She presents for an injection of Botox into the detrusor muscle` Findings: normal anatomy Procedure Description: The patient was given a dose of oral antibiotics and brought to the operating room on 10/14/2023. After successful induction of general anesthesia without intubation, she was placed in the dorsal lithotomy position. Her genitalia was prepped with Betadine. 2% Xylocaine jelly was instilled into the urethra to act as a local anesthetic. A 20 Italian urethrotome sheath was passed through the urethra into the bladder. The bladder was inspected with a 30 degree lens. Both ureteral orifices appeared normal with no blood coming from either side. The remainder of the bladder was smooth-walled with no papillary or nodular lesions. Using a transurethral injection system, we injected a total of 100 units of Botox into the detrusor muscle. We diluted the Botox in 20 mL of dilute and injected 1 mL in 20 different locations. We used a grid system with 5 horizontal rows and 4 vertical rows The bladder was emptied and the scope was removed. She tolerated the procedure well with no complications.
[2023-10-14 09:34] VITALS: BP 126/67; PULSE 65; RESP 16; TEMP 36.4; O2SAT 94
[2023-10-14 10:13] VITALS: BP 145/74; PULSE 59; RESP 16; TEMP 36.4; O2SAT 98
--- NOTE | 2023-10-14 10:21 | W.ANESPOSTOP ---
Postoperative Evaluation Date, Time and Location Date Performed: 10/14/23 Time Performed: 09:36 Patient Location: Day Surgery Unit Vital Signs Most Recent Imported Vital Signs: Most Recent Vital Signs Temp Pulse Resp BP Pulse Ox 36.4 C L 59 L 16 145/74 H 98 10/14/23 10:13 10/14/23 10:13 10/14/23 10:13 10/14/23 10:13 10/14/23 10:13 Pain Score Most Recent Pain Score: Most Recent Pain Score Pain Level 0 10/14/23 10:13 Assessment Mental Status: Awake (Alert & Oriented to Patient Baseline) Airway and Respiratory Function: Patent airway with normal (patient baseline) respiratory exam Cardiovascular Function: Hemodynamically Stable Hydration Status: Adequately Hydrated Nausea & Vomiting: No Nausea or Vomiting Pain: Pt. Denies Any Pain Peripheral Nerve Block: Patient did not receive a nerve block
[2023-10-14] MEDS: Phenazopyridine 200 MG TAB PO (10:28)
== END 2023-10-14 10:55 | disposition home or self-care (01) | DRG 700 ==
LOC: PDS 09:24 → SUR 10-28 10:27
PROVIDERS: PCP Family Medicine; Visit Provider Urology
PROC: 3E0K8GC Introduction of Other Therapeutic Substance into Genitourinary Tract, Via Natural or Artificial Opening Endoscopic (ICD-10-PCS; CPT 52287; principal; 2023-10-14 08:45)
DX: N32.81 Overactive bladder (principal); N39.41 Urge incontinence; B35.1 Tinea unguium; F41.1 Generalized anxiety disorder; G25.81 Restless legs syndrome; G47.33 Obstructive sleep apnea (adult) (pediatric); M85.80 Other specified disorders of bone density and structure, unspecified site; R15.9 Full incontinence of feces; K64.4 Residual hemorrhoidal skin tags; K64.8 Other hemorrhoids; I10 Essential (primary) hypertension; J44.9 Chronic obstructive pulmonary disease, unspecified; Z96.641 Presence of right artificial hip joint; Z96.653 Presence of artificial knee joint, bilateral
CPT/HCPCS: 52287; 99222; J0585; J2704; J3010

== ENCOUNTER 2023-12-30 11:17 | Outpatient (CLI) | payer MEDICARE, SELFPAY ==
[2023-12-30 11:48] VITALS: BP 129/63; PULSE 67; RESP 20; TEMP 36.6; O2SAT 98
--- NOTE | 2023-12-30 12:29 | PDOC.PAIN ---
Date of service: 12/30/23 Time of Service: 12:29 Pain Managment Procedure Note Procedure Note Procedure Note: PROCEDURE NOTE Bilateral Thoracic Medial Branch Blocks Date of Service: December 30, 2023 Patient: Rocio Lane Provider: Vikash Red DO, MPH Rocio Lane has been referred to the [facility] for thoracic medial branch blocks. Pre-operative diagnosis: Thoracic Spondylosis without Myelopathy Post-operative diagnosis: Same Pre-procedure pain: VAS= 7/10 COMMENTS: I previously evaluated her in the clinic. Cabrera was interviewed and the medical records were reviewed. There were no medical, pharmacologic, radiographic or other structural contraindications to attempting fluoroscopically guided local anesthetic thoracic medial branch blocks. Risks and potential side effects were discussed. I also discussed the potential benefit(s) of the procedure with Rocio, and voiced concerns were addressed. After Rocio was completely informed about the procedure, the printed consent form was signed. A standard time-out procedure was performed. Rocio was placed in the prone position on the fluoroscopy table. Automated blood pressure cuff and pulse oximeter were applied. The skin entry points for approaching the anatomic target points of the segmental medial branches of bilateral T8, T9, and T10 were identified with fluoroscopy and marked. The skin at the target site area was thoroughly prepared with Chlorhexadine. The skin was then draped. Next, a 25 gauge 3.5 spinal needle was placed under fluoroscopic guidance down on to the target point (the articular pillar) for each respective segmental medial branch. Position was confirmed in A/P and lateral views. Aspiration revealed no blood or clear fluid. Next, 0.25ml of omnipaque 240 was injected at each level. No contrast following a vascular or neural pattern was visualized under continuous fluoroscopy. Next, 0.25 ml of preservative-free 0.5% bupivicaine was injected at each level. There was no unusual discomfort expressed by Rocio. The needles were withdrawn without difficulty. (49 mls of Omnipaque was wasted) Rocio was observed and was without hemodynamic, neurologic, or allergic reactions.? Fluoroscopic images were digitally archived. Provacative testing using the Modified Phillips's facet loading test- Left side Right Side Directly before the block VAS (0-10) = 7/10 VAS (0-10) = 7/10 Five minutes after the block VAS (0-10) = 0/10 VAS (0-10) = 0/10 Percentage relief obtained with this diagnostic block 100% 100% Any improved physical functioning directly after the blocks? Able to stand up straightwithout issues. Follow up plans and appointments were discussed with Rocio. Rocio was instructed to keep careful note of how the usual pain was modified by these injections. Specifically, to keep a pain diary for the next 4 hours using a numeric pain scale of 0-10 and report these results. Post procedure instruction was given as documented in the nursing documentation and having met discharge criteria, the patient was [facility]. Based on the medial branches blocked today, if they patient has adequate relief and we are able to proceed to radiofrequency ablation, the treatment should result in the denervation of the bilateral T7-T8 and T8-T9 facet joints. We would expect to denervate a total of 4 facets during the radiofrequency ablation. COMMENTS: No apparent complications. Post-procedure pain: VAS= 0/10 Rocio will call back with 0-4 hour post-procedure pain scores. I personally performed the entire procedure. VIKASH RED DO, MPH ABPM&R-subspecialty board certification in Pain Medicine [facility]
--- NOTE | 2023-12-30 12:34 | DI.RAD_ITS ---
Exam(s) XR PAIN CLINIC THORACIC SP 2V EXAM: XR PAIN CLINIC THORACIC SP 2V CLINICAL HISTORY: Bilateral Thoracic spondylosis TECHNIQUE: 2D and realtime digital imaging was performed. CONTRAST MATERIAL: Refer to procedure report. COMPARISON: No exams were available for comparison FINDINGS: Fluoroscopy was provided for Dr. Red during the performance of a thoracic medial branch block. Ple ase refer to the procedure report for complete details. Ka,r=8.45 mGy IMPRESSION: RADIATION DOSE DELIVERED: 0.0 0.0 0
[2023-12-30 12:35] VITALS: BP 158/91; PULSE 69; RESP 16; O2SAT 100
[2023-12-30] MEDS: Nerve Block Tray 1 EACH MC (12:37)
[2023-12-30] MEDS: Omnipaque 240 MG/ML 50 ML BTL IJ (12:37)
[2023-12-30] MEDS: Bupivacaine 0.5% Pres-Free 10 ML VIAL IJ (12:38)
== END 2023-12-30 11:18 | disposition home or self-care (01) ==
LOC: PC 11:18
PROVIDERS: PCP Family Medicine; Visit Provider Preventive Medicine Occupational Medicine
DX: M54.59 Other low back pain (principal); M47.814 Spondylosis without myelopathy or radiculopathy, thoracic region
CPT/HCPCS: 64490; 64491; 72070; J0665; Q9967

== ENCOUNTER → 2024-01-17 10:25 | Outpatient (BNVA) | payer MEDICARE, SELFPAY | PROVIDERS: PCP Family Medicine; Referring Provider Family Medicine; Visit Provider Nurse Practitioner Gerontology | DX: N39.41 Urge incontinence (principal) | CPT/HCPCS: 51798; 99213 ==

== ENCOUNTER → 2024-02-03 12:51 | Outpatient (BNVA) | payer MEDICARE, SELFPAY | PROVIDERS: PCP Family Medicine; Referring Provider Family Medicine; Visit Provider Podiatrist | DX: L60.3 Nail dystrophy (principal); B35.1 Tinea unguium; M21.611 Bunion of right foot; M20.41 Other hammer toe(s) (acquired), right foot; G25.81 Restless legs syndrome; M79.674 Pain in right toe(s); I73.9 Peripheral vascular disease, unspecified | CPT/HCPCS: 93922; 99214 ==

== ENCOUNTER 2024-03-02 09:45 | Outpatient (CLI) | payer MEDICARE, SELFPAY ==
--- NOTE | 2024-03-02 06:00 | DI.RAD_ITS ---
Exam(s) XR PAIN CLINIC THORACIC SP 2V EXAM: XR PAIN CLINIC THORACIC SP 2V CLINICAL HISTORY: DX: Thoracic degenerative disc disease TECHNIQUE: 2D and realtime digital imaging was performed. CONTRAST MATERIAL: Refer to procedure report. COMPARISON: No exams were available for comparison FINDINGS: Fluoroscopy was provided for Dr. Red during the performance of a thoracic epidural steroid injectio n. Please refer to the procedure report for complete details. Ka,r=3.28 mGy IMPRESSION: RADIATION DOSE DELIVERED: 0.0 0.0 0
[2024-03-02 09:59] VITALS: BP 135/86; PULSE 66; RESP 20; TEMP 36.7; O2SAT 98
[2024-03-02 10:50] VITALS: BP 143/90; PULSE 71; RESP 20; O2SAT 100
[2024-03-02] MEDS: Dexamethasone Sod. Phos./Pres-Free 10 MG/ML VIAL IJ (10:53)
[2024-03-02] MEDS: Epidural Tray 1 EACH MC (10:53)
[2024-03-02] MEDS: Omnipaque 240 MG/ML 50 ML BTL IJ (10:53)
--- NOTE | 2024-03-02 10:55 | PDOC.PAIN ---
Date of service: 03/02/24 Time of Service: 10:55 Pain Managment Procedure Note Procedure Note Procedure Note: Procedure Note Thoracic Interlaminar Epidural Steroid Injection Date of Service: March 02, 2024 Patient:Rocio Arroyo? Provider:? Vikash Pyle DO, MPH Rocio has been referred to [facility] for thoracic epidural steroid injection.? Pre-operative diagnosis: Thoracic Radiculopathy Post-operative diagnosis: Same Pre-procedure pain: VAS= 6/10 with activity Comments: I previously evaluated her in the clinic. Rocio was interviewed and the medical record was reviewed.? There were no medical, pharmacologic, radiographic or other structural contraindications to attempting fluoroscopically guided thoracic interlaminar epidural steroid injection.? Risks, potential side effects, indications, and potential benefits of the procedure were reviewed with Rocio.? Questions and concerns were addressed.? After it was clear that the patient was fully informed about the procedure, the printed consent form was signed by the patient and myself.? Rocio was placed in the prone position on the fluoroscopy table and automated blood pressure cuff as well as pulse oximeter was applied. A standard time-out procedure was performed. The skin entry point for entering the epidural space by a midline T5-T6 interlaminar approach was identified under fluoroscopy and marked.? The skin entry point was thoroughly cleaned with Chlorhexadine preparation and the skin was draped.? Next a mixture of 2 mls of 1% lidocaine was infiltrated into the area of the planned skin entry point and underlying subcutaneous tissues.? Next an 18 gauge Tuohy needle was placed under fluoroscopic guidance and with loss of resistance technique into the epidural space utilizing multiple AP and 55 degree contralateral fluoroscopic views.? Upon correct needle placement and loss of resistance, there were no paresthesia or return of blood or CSF through the needle. Next 1 mls of preservative-free Omnipaque 240 was injected with clear epidural spread in the A/P and oblique views. Next, a solution of 15 mg of preservative-free Dexamethasone was injected. This was followed with 1ml of preservative-free normal saline. No unusual discomfort was expressed by Rocio. The needle was withdrawn without difficulty. (49 mls of Omnipaque and 5 mg of Dexamethasone was wasted) Rocio was observed and was without hemodynamic, neurologic, or allergic reactions.? Fluoroscopic images were digitally archived. Rocio's vital signs were stable throughout the procedure and were as recorded in the doc flowsheet by the nursing staff.? If given, dosages of intravenous drugs for anxiolysis and analgesia were documented in MAR. Follow up plans and appointments were discussed with Rocio.? Post procedure instruction was given as documented in nursing documentation and having met discharge criteria, [facility] ? COMMENTS: No apparent complications. Post-procedure pain: VAS= 0/10. Rocio to contact [facility] as needed. If at least 50% improvement in pain and/or function for at least 3 months is achieved, this procedure can be repeated. I personally completed the entire procedure. VIKASH PYLE DO, MPH ABPMR-subspecialty board certification in Pain Medicine [facility]
== END 2024-03-02 09:46 | disposition home or self-care (01) ==
LOC: PC 09:45
PROVIDERS: PCP Family Medicine; Visit Provider Preventive Medicine Occupational Medicine
DX: M54.14 Radiculopathy, thoracic region (principal); M54.50 Low back pain, unspecified; M54.15 Radiculopathy, thoracolumbar region
CPT/HCPCS: 62321; 72070; J1100; Q9967

== ENCOUNTER 2024-05-11 06:01 | Day surgery (SDC) | payer MEDICARE, SELFPAY ==
--- NOTE | 2024-05-11 06:11 | ANES.PREOP_ITS ---
General Info Date of Service Date Performed: 05/11/24 Height: 5 ft 7.5 in Weight: 58.967 kg Body Mass Index (BMI): 20.0 Surgical Procedure: Operation Date: 05/11/24 07:40 Proposed Procedure Side Surgeon p Cystoscopy/ Transurethral Injection of Botox Smooth Thomas MD Meds Allergies and Home Medications Allergies Allergy/AdvReac Type Severity Reaction Status Date / Time morphine Allergy Severe Psychosis Verified 05/11/24 06:21 Penicillins Allergy Intermediate Hives Verified 05/11/24 06:21 Home Medication ?Medication ?Instructions ?Recorded levalbuterol tartrate 45 2 inh inhalation Q6H PRN 05/18/23 mcg/actuation aerosol inhaler (Xopenex HFA) caffeine 200 mg tablet 200 mg PO DAILY PRN 07/12/23 cholecalciferol (vitamin D3) 25 25 mcg PO DAILY 07/12/23 mcg (1,000 unit) capsule choline 10 mg-lutein 20 1 cap PO DAILY 07/12/23 mg-zeaxanthin 13 mg-astaxanthin 4 mg capsule (MaculaPF) diltiazem HCl 240 mg 240 mg PO DAILY 07/12/23 capsule,extended release 24 hr lisinopril 40 mg tablet 40 mg PO DAILY 07/12/23 hydrocodone 5 mg-acetaminophen 325 1 tab PO TID PRN 10/14/23 mg tablet galantamine 24 mg 24 hr 24 mg PO QAM 10/29/23 capsule,extended release hydroxyzine HCl 25 mg tablet 25 mg PO QID PRN 10/29/23 indapamide 1.25 mg tablet 1.25 mg PO QAM 10/29/23 magnesium 250 mg tablet 250 mg PO DAILY 10/29/23 hydrocortisone 2.5 % topical cream See Rx Instructions .Route 01/27/24 .COMPLEX #30 grams Current Visit Medications: Current Medications Generic Name Dose Route Start Last Admin Trade Name Freq PRN Reason Stop Dose Admin OnabotulinumtoxinA 100 units/ 0 units 05/11/24 06:00 Sodium Chloride 20 ml IJ 05/11/24 23:59 DIRECTED [facility] Ringer's Solution 1,000 mls @ 80 mls/hr 05/11/24 06:00 IV 05/11/24 23:59 INFUSION [facility] IV Miscellaneous Supplies 1 each 05/11/24 06:00 Iv Access IV 05/11/24 23:59 DIRECTED MIKE Sodium Chloride 0 ml 05/11/24 06:00 Normal Saline Flush 10 Ml Syr IV 05/11/24 23:59 PRN PRN Sodium Chloride 0 ml 05/11/24 06:00 Normal Saline 10 Ml Vial IJ 05/11/24 23:59 DIRECTED PRN Sterile Water 0 ml 05/11/24 06:00 Water,Injection,Sterile 10 Ml Vial IJ 05/11/24 23:59 DIRECTED PRN Trimethoprim/Sulfamethoxazole 1 tab 05/11/24 06:00 Sulfameth/Trimeth Ds Tab PO 05/11/24 23:59 PREOP MIKE PFSH Active Problems Active Problems: Problem Status Onset Code Thoracic degenerative disc disease Acute M51.34 Hammertoe of right foot Acute M20.41 Bunion, right foot Acute M21.611 Dysfunction of eustachian tube Acute H69.90 Thoracic spondylosis without myelopathy Acute M47.814 OAB (overactive bladder) Acute N32.81 Otitis media Acute H66.90 URI, acute Acute J06.9 Pain in left foot Acute M79.672 Nail dystrophy Acute L60.3 Onychomycosis Acute B35.1 Urge incontinence Acute N39.41 DOMINIC (generalized anxiety disorder) Acute F41.1 HERMINIO (obstructive sleep apnea) Chronic G47.33 Osteopenia Acute M85.80 Fecal soiling due to fecal incontinence Acute R15.9 Chronic diarrhea Acute K52.9 Fecal incontinence Acute R15.9 External hemorrhoids without complication Acute K64.4 Internal hemorrhoids without complication Acute K64.8 Open fracture of left distal radius and ulna Acute 11/25/22 S52.502B, S52.602B Cellulitis Acute L03.90 Right rib fracture Acute S22.31XA Restless leg syndrome Acute G25.81 Right upper lobe pulmonary infiltrate Acute R91.8 Hemoptysis Acute R04.2 HTN (hypertension) Chronic I10 COPD (chronic obstructive pulmonary disease) Chronic J44.9 Chest pain Acute R07.9 Medical History Medical History History of emphysema Essential hypertension Mild neurocognitive disorder Dilation of aorta Insomnia Urinary incontinence Benign neoplasm of meninges Atypical chest pain Pain in thoracic spine Nasal discharge Night sweat Petechial hemorrhage Surgical wound dehiscence Fracture of right distal radius Lumbar spondylosis Thoracic aortic ectasia History of SCC (squamous cell carcinoma) of skin (~2016) completely excised from right neck Meningioma History of gastroesophageal reflux (GERD) C. difficile diarrhea (~09/2019) Urinary frequency Surgical History Surgical History History of right hip replacement History of bunionectomy History of back surgery lumbar decompression 09/13/22 L5-S1 and cyst removal History of left knee replacement History of total right knee replacement (~2016) History of total right hip arthroplasty (~2014) S/P appendectomy Tobacco Smoking/Tobacco Use Status: Former Tobacco Use Alcohol Alcohol Intake: never Substance Use Substance use: Never Substance use type: does not use Vital Signs and Lab Results Vital Signs Most Recent Vital Signs in EMR: Temp Pulse Resp BP Pulse Ox 36.6 C 70 18 125/111 H 97 05/11/24 06:32 05/11/24 06:32 05/11/24 06:32 05/11/24 06:32 05/11/24 06:32 Lab Results Blood Type / Crossmatch: No Data to Display Complete Blood Count: No Data to Display Complete Metabolic Panel: No Data to Display Liver Function Panel: No Data to Display Coagulation Panel: No Data to Display Cardiac Panel: No Data to Display Arterial Blood Gas: No Data to Display Venous Blood Gas: No Data to Display Pancreas Panel: No Data to Display Thyroid Panel: No Data to Display Infectious Disease: No Data to Display Blood Cultures: No Data to Display Toxicology Panel: No Data to Display Imaging and Studies Imaging and Studies Study information below may be from another EMR and interpreted by another provider. Please see original notes in EMR for more complete details. EKG Summary: 12/03: sinus, PACs, LVH. Stress Test Summary: 09/04: no ischemia or infarct. EF 58%. Anesthesia Assessment and Plan Anesthesia History Personal History: No History of Anesthesia Complications Family History: No Family History of Anesthesia Complications Exercise Tolerance Exercise Tolerance: Metabolic Equivalents>4 Cardiac & Pulmonary Exam Cardiac Exam: Normal S1/S2 Heart Sounds Pulmonary Exam: Clear Bilateral Breath Sounds Implantable Cardiac Device Does patient have a Pacemaker or an ICD?: No Airway Exam Known Difficult Airway: No Mallampati Class: 2 Mouth Opening: Normal (> 3cm) Thyromental Distance: Greater than 3 cm Neck Range of Motion: Full ROM Neck Circumference: Normal Teeth Condition: Normal Dentition ASA Classification ASA Score: ASA 3 Emergency Case?: No NPO Status NPO Status: NPO Clears >2 hours, Solids >8 hours Anesthesia Plan Resuscitation Status: Full Code Anesthesia Technique: General Anesthesia Airway Planned: Natural Airway Monitors Used: Standard Monitors Preoperative Comments:: 83 yo female for cysto with botox. Sig PMHx: chest pain (negative stress, likely not of cardiac etiology - per cardiology), COPD/emphysema (SOB with exertion, feels she is doing well. levalbuterol), HERMINIO, HTN (dilt, lisinopril), GERD (denies), RLS, anxiety, former smoker, occ EtOH. echo: mild ascending Ao 3.8 cm. LVEF 61%. no sig valve dz. Previous Anes: - cysto, prop, natural airway, no issues. - fracture reduction, prop, LMA 4, no issues.
[2024-05-11 06:32] VITALS: BP 125/111; PULSE 70; RESP 18; TEMP 36.6; O2SAT 97
[2024-05-11] MEDS: Lactated Ringers 1,000 ML 80 ML IV (06:44)
[2024-05-11] MEDS: Sulfameth/Trimeth DS TAB 1 TAB PO (06:49)
--- NOTE | 2024-05-11 06:52 | W.PM.HP.N ---
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 History of Present Illness History of Present Illness Chief Complaint: Overactive bladder Narrative: Chief complaint: Overactive bladder This is an 83-year-old woman who has a history of urgency incontinence related to an overactive bladder. She has failed beta 3 agonist therapy along with behavioral modification. She is not a candidate for anticholinergics due to the side effect profile. She has had injections of Botox into the detrusor muscle previously and has had mild improvement. Her last injection was over 6 months ago. She presents for repeat injection. She has no dysuria or gross hematuria. She does have some leakage with activity, but for the most part, her leakage occurs with urgency. Review of Systems Narrative: No fevers or chills No vision change or dysphasia No diabetes or thyroid dysfunction Sleep apnea. COPD. No shortness of breath, cough or hemoptysis No chest pain or palpitations GERD. Fecal incontinence. No nausea, vomiting, hepatitis, ulcers, jaundice No seizures, strokes or peripheral neuropathy No bleeding disorders or anemia Chronic back pain. No gout PFSH All Active Problems Thoracic degenerative disc disease (Acute) Hammertoe of right foot (Acute) Bunion, right foot (Acute) Dysfunction of eustachian tube (Acute) Thoracic spondylosis without myelopathy (Acute) OAB (overactive bladder) (Acute) Otitis media (Acute) URI, acute (Acute) Pain in left foot (Acute) Nail dystrophy (Acute) Onychomycosis (Acute) Urge incontinence (Acute) DOMINIC (generalized anxiety disorder) (Acute) HERMINIO (obstructive sleep apnea) (Chronic) Osteopenia (Acute) Fecal soiling due to fecal incontinence (Acute) Chronic diarrhea (Acute) Fecal incontinence (Acute) External hemorrhoids without complication (Acute) Internal hemorrhoids without complication (Acute) Open fracture of left distal radius and ulna (Acute 11/25/22) Cellulitis (Acute) Right rib fracture (Acute) Restless leg syndrome (Acute) Right upper lobe pulmonary infiltrate (Acute) Hemoptysis (Acute) HTN (hypertension) (Chronic) COPD (chronic obstructive pulmonary disease) (Chronic) Chest pain (Acute) Medical History History of emphysema Essential hypertension Mild neurocognitive disorder Dilation of aorta Insomnia Urinary incontinence Benign neoplasm of meninges Atypical chest pain Pain in thoracic spine Nasal discharge Night sweat Petechial hemorrhage Surgical wound dehiscence Fracture of right distal radius Lumbar spondylosis Thoracic aortic ectasia History of SCC (squamous cell carcinoma) of skin (~2016) completely excised from right neck Meningioma History of gastroesophageal reflux (GERD) C. difficile diarrhea (~09/2019) Urinary frequency Surgical History History of right hip replacement History of bunionectomy History of back surgery lumbar decompression 09/13/22 L5-S1 and cyst removal History of left knee replacement History of total right knee replacement (~2016) History of total right hip arthroplasty (~2014) S/P appendectomy Family History Mother Leukemia Hypertension Father Bladder cancer Emphysema of lung Social History Smoking/Tobacco Use Status: Former Tobacco Use Quit Date: 09/13/99 Smoking risk assessment performed?: Yes Alcohol Intake: never Drug use: Never Substance use type: does not use Housing: house Current gender identity: female Do you feel safe at home: Yes Do you feel safe in your relationship?: Yes Meds Allergies and Home Medications Allergies Allergy/AdvReac Type Severity Reaction Status Date / Time morphine Allergy Severe Psychosis Verified 05/11/24 06:21 Penicillins Allergy Intermediate Hives Verified 05/11/24 06:21 Home Medications ?Medication ?Instructions ?Recorded ?Confirmed ?Type levalbuterol tartrate 45 2 inh inhalation Q6H PRN 05/18/23 05/10/24 History mcg/actuation aerosol inhaler (Xopenex HFA) caffeine 200 mg tablet 200 mg PO DAILY PRN 07/12/23 05/10/24 History cholecalciferol (vitamin D3) 25 25 mcg PO DAILY 07/12/23 05/10/24 History mcg (1,000 unit) capsule choline 10 mg-lutein 20 1 cap PO DAILY 07/12/23 05/11/24 History mg-zeaxanthin 13 mg-astaxanthin 4 mg capsule (MaculaPF) diltiazem HCl 240 mg 240 mg PO DAILY 07/12/23 05/11/24 History capsule,extended release 24 hr lisinopril 40 mg tablet 40 mg PO DAILY 07/12/23 05/11/24 History hydrocodone 5 mg-acetaminophen 325 1 tab PO TID PRN 10/14/23 05/10/24 History mg tablet galantamine 24 mg 24 hr 24 mg PO QAM 10/29/23 05/11/24 History capsule,extended release hydroxyzine HCl 25 mg tablet 25 mg PO QID PRN 10/29/23 05/11/24 History indapamide 1.25 mg tablet 1.25 mg PO QAM 10/29/23 05/11/24 History magnesium 250 mg tablet 250 mg PO DAILY 10/29/23 05/10/24 History hydrocortisone 2.5 % topical cream See Rx Instructions .Route 01/27/24 05/10/24 Rx .COMPLEX #30 grams Exam Const General: cooperative Neck Neck: supple Resp Effort & Inspection: normal respiratory effort Auscultation: clear to auscultation bilaterally Cardio Rate: regular rate Rhythm: regular rhythm GI Palpation: soft and no masses Neuro General: patient alert and patient awake Results Last Vital Signs Temp 36.6 C 05/11/24 06:32 Pulse 70 05/11/24 06:32 Resp 18 05/11/24 06:32 BP 125/111 H 05/11/24 06:32 Pulse Ox 97 05/11/24 06:32 Time Spent Time spent with Patient: <40 minutes Time was spent: other
[2024-05-11] MEDS: Lidocaine 2% Jelly 6 ML SYR (08:03)
[2024-05-11] MEDS: BOTULINUM TOXIN TYPE A 100 UNITS, Normal Saline 20 ML IJ (08:04)
--- NOTE | 2024-05-11 08:09 | W.PM.DSUDISC ---
Date of service: 05/11/24 Time of Service: 08:11 Discharge Plan Disposition Patient Disposition: Home Condition: Stable Discharge Details Reason For Visit: Botox injection Attending Provider: Smooth Thomas Primary Care Provider: Marivel Collins Home Meds and New Rx's Prescriptions: No Action levalbuterol tartrate [Xopenex HFA] 45 mcg/actuation HFA aerosol inhaler 2 inh inhalation Q6H PRN galantamine 24 mg capsule,ext rel. pellets 24 hr 24 mg PO QAM Rx Instructions: administer with breakfast hydroxyzine HCl 25 mg tablet 25 mg PO QID PRN indapamide 1.25 mg tablet 1.25 mg PO QAM magnesium 250 mg tablet 250 mg PO DAILY MaculaPF 10-20-13-4 mg capsule 1 cap PO DAILY diltiazem HCl 240 mg capsule,extended release 24hr 240 mg PO DAILY lisinopril 40 mg tablet 40 mg PO DAILY cholecalciferol (vitamin D3) 25 mcg (1,000 unit) capsule 25 mcg PO DAILY caffeine 200 mg tablet 200 mg PO DAILY PRN hydrocortisone 2.5 % cream See Rx Instructions .ROUTE .COMPLEX Qty: 30 12RF Dose Instruction: APPLY TOPICALLY FOUR TIMES A DAY NEEDED FOR HEMORRHOIDS Rx Instructions: APPLY TOPICALLY FOUR TIMES A DAY NEEDED FOR HEMORRHOIDS hydrocodone-acetaminophen 5-325 mg tablet 1 tab PO TID PRN Patient Comments: TAKE ONE TABLET BY MOUTH THREE TIMES A DAY NEEDED Discharge Instructions Additional Instructions: Please ask patient to call us in about a week to give us a progress report about her urinary symptoms Make an appointment to see us in about 6 months Activity:: Activity as Tolerated Shower/Bathe:: 24 hours Diet:: As Tolerated Discharge Orders Discharge Orders: Discharge Order (Routine); Ordered 05/11/24 Ordered By: Smooth Thomas DS: Diagnosis Discharge Diagnosis (1) OAB (overactive bladder): Status: Acute
--- NOTE | 2024-05-11 08:12 | W.PM.OP ---
Date of service: 05/11/24 Time of Service: 08:12 Operative Note Operative Note DATE OF PROCEDURE: 05/11/24 PRE-OP DIAGNOSIS: Overactive Bladder POST-OP DIAGNOSIS: same PROCEDURE: cystoscopy with transurethral injection of Botox into the detrusor muscle SURGEON: Smooth Thomas ANESTHESIA TYPE: Local By Surgeon and General:No Airway Refer to Anesthesia Record ESTIMATED BLOOD LOSS: 5 PATHOLOGY: none sent COMPLICATIONS: None Patient was transported to: same day Patient's condition: stable Implants: Botox 100 Units Indications: This is an 83-year-old woman who has a history of urgency incontinence due to an overactive bladder. She has not benefited from beta 3 agonists or behavioral modification. She did have some improvement with an injection of Botox into the detrusor muscle. Her last injection was over 6 months ago. She presents for repeat injection Findings: No bladder mass Procedure Description: The patient was given a dose of preoperative oral antibiotics and brought to the operating room on 05/11/2024. After successful induction of general anesthesia without intubation, she was placed in the dorsolithotomy position. Her genitalia was prepped with Betadine and draped. 2% Xylocaine jelly was instilled into the urethra to act as a local anesthetic. A 20 Swedish urethrotome sheath was passed through the urethra into the bladder. The bladder was inspected with the 30 degree lens. No papillary or nodular lesions were seen. The bladder appeared smooth-walled. Using a transurethral injection system, we injected a total of 100 units of Botox into the detrusor muscle. We used a grid pattern with 5 vertical columns and 4 horizontal rows. A total of 20 injection sites were utilized with 1 cc of solution injected into each site. The bladder was then emptied and the scope was removed. The patient tolerated the procedure well with no complications.
[2024-05-11 08:14] VITALS: BP 83/51; PULSE 63; RESP 18; TEMP 36; O2SAT 93
--- NOTE | 2024-05-11 08:24 | W.ANESPOSTOP ---
Postoperative Evaluation Date, Time and Location Date Performed: 05/11/24 Time Performed: 08:24 Patient Location: Day Surgery Unit Vital Signs Most Recent Imported Vital Signs: Most Recent Vital Signs Temp Pulse Resp BP Pulse Ox 36.0 C L 63 18 83/51 L 93 05/11/24 08:14 05/11/24 08:14 05/11/24 08:14 05/11/24 08:14 05/11/24 08:14 Pain Score Most Recent Pain Score: Most Recent Pain Score Pain Level 0 05/11/24 08:14 Assessment Mental Status: Awake (Alert & Oriented to Patient Baseline) Airway and Respiratory Function: Patent airway with normal (patient baseline) respiratory exam Cardiovascular Function: Hemodynamically Stable Hydration Status: Adequately Hydrated Nausea & Vomiting: No Nausea or Vomiting Pain: Pt. Denies Any Pain Peripheral Nerve Block: Patient did not receive a nerve block
[2024-05-11 08:44] VITALS: BP 102/54; PULSE 59; RESP 18; TEMP 36.2; O2SAT 98
[2024-05-11] MEDS: Phenazopyridine 200 MG TAB PO (08:54)
== END 2024-05-11 09:02 | disposition home or self-care (01) ==
PROVIDERS: PCP Family Medicine; Visit Provider Urology
PROC: (CPT 52287; principal; 2024-05-11 07:30)
DX: N32.81 Overactive bladder (principal); N39.41 Urge incontinence; R35.0 Frequency of micturition
CPT/HCPCS: 52287; J0585; J2405; J2704

== ENCOUNTER 2024-05-15 10:03 | Emergency (ER) | payer MEDICARE, SELFPAY ==
[2024-05-15 10:13] VITALS: BP 109/88; PULSE 71; RESP 21; TEMP 36; O2SAT 98
--- NOTE | 2024-05-15 10:15 | DI.CT_ITS ---
Exam(s) CT LUMBAR SPINE WO EXAM: CT LUMBAR SPINE WO CLINICAL HISTORY: pain. TECHNIQUE: Imaging Protocol: Axial computed tomography images with coronal and sagittal reformatted images were created and reviewed COMPARISON: MRI scan of 10/26/2022 was reviewed. FINDINGS: Bones: Degenerative scoliosis noted which is convex left in the lumbosacral spine.. There are no acu te fractures, listhesis, nor pars defects. There are no lytic osseous lesions evident. INDIVIDUAL LEVELS: T12-L1:This level exhibits asymmetric disc space narrowing, more so left than right sided. There is mild annular bulging without a dominant disc herniation. Central canal dimensions lower normal altho ugh there is some impingement upon the posterior left side of thecal sac by degenerative change in th e left facet joint. No obvious significant foraminal stenosis. L1-2: This level exhibits advanced uniform disc space narrowing. There is moderate-severe central s ortiz canal stenosis at this level related to some annular bulging and short AP dimensions the pedicl es. There does not appear to be a distinct focal disc herniation. L2-3: This level exhibits moderate disc space narrowing, slightly more so on the right than on the l eft side. There is severe central spinal canal stenosis at this level due to short AP dimensions of the pedicles, relatively symmetrical annular bulging and degenerative change in both facet joints at this level. There is minimal foraminal stenosis at this level. L3-4: This level exhibits asymmetric disc space narrowing on the right side, this being the epicente r of the convex left degenerative scoliosis convex in the lumbosacral spine. There is severe central spinal canal stenosis also evident again at this level due to short AP dimensions the pedicles and s ymmetrical annular bulging and degenerative change in the facet joints. There is mild foraminal sten osis on the right side. There is no significant foraminal stenosis on the left side at this level. L4-5: This level exhibits uniform advanced disc space narrowing.. There is moderate-severe central spinal canal stenosis due to short AP dimensions the pedicles and degenerative facet arthropathy. Th ere does not appear to be a focal disc herniation. There is significant narrowing of the exiting rig ht neural foramen. There is significant impingement of the exiting right nerve root at this level be tween the overlying L4 right pedicle and subjacent annular bulging. L5-S1: This level exhibits relatively uniform moderate disc space narrowing, more so than was eviden t on the MRI scan of October 2022. Are there is annular bulging noted at this level. Mild central canal stenosis. Moderate facet arthropathy bilaterally. Moderate foraminal stenosis noted on the le ft side. Minimal foraminal stenosis on the right side. The visualized sacroiliac joints and sacrum appear unremarkable. There is a right hip prosthesis not ed PARASPINAL SOFT TISSUES: Calcified and atherosclerotic abdominal aorta noted. The proximal abdominal aorta is again noted to be dilated (3.8 cm). Common iliac arteries are calcified but not enlarged. IMPRESSION: 1. Multilevel chronic degenerative disc disease and facet arthropathy with degenerative scoliosis. T here is moderate-severe canal stenosis at L1-2 level and severe spinal canal stenosis at L2-3 and L3- 4 levels with moderate-severe central canal stenosis at L4-5. Only mild central canal stenosis at L5 -S1. Multilevel asymmetric foraminal stenosis as described above. 2. No fractures nor listhesis evident. No significant osseous lesions. Other findings as above. RADIATION DOSE DELIVERED: 630.31mGy.cm Total DLP DATA REPOSITORY: All CT scans at this facility are submitted to the National Radiology Data Registry (NRDR) Dose Index Registry (DIR) with the [employer] ([employer]). RADIATION OPTIMIZATION: All CT scans at this facility use at least one of these dose optimization te chniques: automated exposure control; mA and/or kV adjustment per patient size (includes targeted exa ms where dose is matched to clinical indication); or iterative reconstruction.
--- NOTE | 2024-05-15 10:27 | ED.GENADUL_ITS ---
Discharge Plan Disposition Patient Disposition: Home Condition: Stable Discharge Details Clinical Impression: Back pain Primary Care Provider: Marivel Collins ED Provider: Demetrio Vazquez Home Meds and New Rx's Prescriptions: New prednisone 20 mg tablet 60 mg PO DAILY 4 Days Qty: 12 0RF Continued levalbuterol tartrate [Xopenex HFA] 45 mcg/actuation HFA aerosol inhaler 1 inh inhalation Q6H PRN galantamine 24 mg capsule,ext rel. pellets 24 hr 24 mg PO QAM Rx Instructions: administer with breakfast hydroxyzine HCl 25 mg tablet 25 mg PO QID PRN indapamide 1.25 mg tablet 1.25 mg PO QAM magnesium 250 mg tablet 250 mg PO DAILY MaculaPF 10-20-13-4 mg capsule 1 cap PO DAILY diltiazem HCl 240 mg capsule,extended release 24hr 240 mg PO DAILY lisinopril 40 mg tablet 40 mg PO DAILY cholecalciferol (vitamin D3) 25 mcg (1,000 unit) capsule 25 mcg PO DAILY caffeine 200 mg tablet 200 mg PO DAILY PRN hydrocortisone 2.5 % cream See Rx Instructions .ROUTE .COMPLEX Qty: 30 12RF Dose Instruction: APPLY TOPICALLY FOUR TIMES A DAY NEEDED FOR HEMORRHOIDS Rx Instructions: APPLY TOPICALLY FOUR TIMES A DAY NEEDED FOR HEMORRHOIDS hydrocodone-acetaminophen 5-325 mg tablet 1 tab PO TID PRN Patient Comments: TAKE ONE TABLET BY MOUTH THREE TIMES A DAY NEEDED Discharge Instructions Additional Instructions: Your CAT scan showed you have spinal stenosis which you probably had for a while now If you take half a tablet of oxycodone do not take hydrocodone within 3 hours of it Follow-up with your primary care provider this week If you feel more ill or have new symptoms such as persistent vomiting or high fevers return to the emergency department for reevaluation HPI General Mode of arrival: ambulatory . Date/Time Provider Initiated Documentation: 05/15/24 10:04 . Limitations to Documentation: no limitations . Information obtained by: patient . History of Present Illness 83 year old F presents to the emergency department with the chief complaint of coccyx area pain, described as moderate, Quality is described as aching, and is localized to the back (lower back/coccyx). Patient reports no radiation. Patient started experiencing this day(s) (1) and it has been constant. No relieving factors improve symptom(s), No exacerbating factors reported . Patient notes no other symptoms.; denies fever/chills. Related Data Home Medications ?Medication ?Instructions ?Recorded ?Confirmed levalbuterol tartrate 45 1 inh inhalation Q6H PRN 05/18/23 05/15/24 mcg/actuation aerosol inhaler (Xopenex HFA) caffeine 200 mg tablet 200 mg PO DAILY PRN 07/12/23 05/15/24 cholecalciferol (vitamin D3) 25 25 mcg PO DAILY 07/12/23 05/15/24 mcg (1,000 unit) capsule choline 10 mg-lutein 20 1 cap PO DAILY 07/12/23 05/15/24 mg-zeaxanthin 13 mg-astaxanthin 4 mg capsule (MaculaPF) diltiazem HCl 240 mg 240 mg PO DAILY 07/12/23 05/15/24 capsule,extended release 24 hr lisinopril 40 mg tablet 40 mg PO DAILY 07/12/23 05/15/24 hydrocodone 5 mg-acetaminophen 325 1 tab PO TID PRN 10/14/23 05/15/24 mg tablet galantamine 24 mg 24 hr 24 mg PO QAM 10/29/23 05/15/24 capsule,extended release hydroxyzine HCl 25 mg tablet 25 mg PO QID PRN 10/29/23 05/15/24 indapamide 1.25 mg tablet 1.25 mg PO QAM 10/29/23 05/15/24 magnesium 250 mg tablet 250 mg PO DAILY 10/29/23 05/15/24 hydrocortisone 2.5 % topical cream See Rx Instructions .Route 01/27/24 05/15/24 .COMPLEX #30 grams prednisone 20 mg tablet 60 mg (3 x 20 mg) PO DAILY 4 days 05/15/24 #12 tabs Previous Rx's ?Medication ?Instructions ?Recorded hydrocortisone 2.5 % topical cream See Rx Instructions .Route 01/27/24 .COMPLEX #30 grams prednisone 20 mg tablet 60 mg (3 x 20 mg) PO DAILY 4 days 05/15/24 #12 tabs Allergies Allergy/AdvReac Type Severity Reaction Status Date / Time morphine Allergy Severe Psychosis Verified 05/15/24 10:11 Penicillins Allergy Intermediate Hives Verified 05/15/24 10:11 General Stated Complaint: Orthopedic CASEY: 3 Review of Systems All systems reviewed & are unremarkable except as noted in HPI and below Constitutional Constitutional: Denies chills, Denies fever(s) and Denies weakness Cardiovascular Cardiovascular: Denies chest pain and Denies dyspnea Respiratory Respiratory: Denies cough and Denies dyspnea Gastrointestinal Gastrointestinal: Denies abdominal pain, Denies nausea and Denies vomiting Genitourinary Genitourinary: Denies dysuria Musculoskeletal Musculoskeletal: Reports back pain Integumentary/Breasts Skin/Breast: Denies rash Neurologic Neurologic: Denies weakness Exam Const General: no acute distress Orientation: alert [facility] Head: normal to inspection Ears: external ears normal General nose exam: external nose normal Mouth: moist mucous membranes Eyes General: appearance normal, both eyes and all related structures Neck Neck: normal visual inspection Resp Effort & Inspection: normal respiratory effort and able to speak in complete sentences Cardio Rate: regular rate GI Palpation: soft and nontender Back/Spine/Pelvis Back: no CVA tenderness Skin General skin exam: no rashes or lesions noted Neuro General: patient alert and patient oriented x3 Extrem General: normal to inspection Psych Mental Status: mental status grossly normal Course Vital Signs Vital signs: Vital Signs Temperature 36 C L 05/15/24 10:13 Pulse 71 05/15/24 10:13 Respiratory Rate 21 05/15/24 10:13 Blood Pressure 109/88 05/15/24 10:13 Pulse Oximetry 98 05/15/24 10:13 Temperature 36 C L 05/15/24 10:13 Temperature Source Temporal Artery Scan 05/15/24 10:13 Pulse 71 05/15/24 10:13 Respiratory Rate 21 05/15/24 10:13 Blood Pressure 109/88 05/15/24 10:13 Blood Pressure Position Sitting 05/15/24 10:13 Pulse Oximetry 98 05/15/24 10:13 Oxygen Delivery Method Room Air 05/15/24 10:13 Oxygen Flow Rate 0 05/15/24 10:13 Pain Level 8 05/15/24 10:13 Medical Decision Making 3-year-old female who has had issues with her back chronically and sees pain management for this, obstructive sleep apnea, hypertension comes in with lower back/coccyx area pain since yesterday. She says she was sitting on a couch and stood up and the pain started. Denies falls or hitting her head. Denies any fevers, change in bowels or bladder function. She is alert and appears well on exam. She has no abdominal tenderness, she is tender over the coccyx area and lower lumbar spine. There is no palpable or visible deformities, she has no saddle anesthesia and intact distal sensation and pulses. She then yesterday she has shooting pain down her left leg without since resolved. She has intact cap refill in both legs. I suspect musculoskeletal back pain with given her age will obtain CTs to exclude compression fracture. Patient stable, CT shows significant degenerative findings in likely spinal stenosis.She is feeling better, has PT scheduled for tomorrow, still has no saddle anesthesia or other concerning findings on exam. She will follow-up with her PCP and returnPrecautions given Differential Diagnosis Differential Diagnosis: lumbar strain, compression fracture Medical Records Medical records reviewed: Yes I reviewed the patient's medical records. Imaging Data Radiologic Study: Attestation: I personally reviewed and interpreted this imaging study as follows: Imaging: CT Scan Radiologist's impression: IMPRESSION: 1. 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 2. Broad-based disc bulge, facet hypertrophy, and ligament hypertrophy at L2/L3 and L3/L4 and L4/L5 consistent with spinal stenosis. . Lab Data Lab results reviewed: Yes I reviewed the patient's lab results. Quality:SDOH Health Related Social Needs: Health related social needs risk of homeless PFSH All Active Problems (Updated 05/15/24 @ 13:11 by Demetrio Vazquez MD) Back pain (Acute) Thoracic degenerative disc disease (Acute) Hammertoe of right foot (Acute) Bunion, right foot (Acute) Dysfunction of eustachian tube (Acute) Thoracic spondylosis without myelopathy (Acute) OAB (overactive bladder) (Acute) Otitis media (Acute) URI, acute (Acute) Pain in left foot (Acute) Nail dystrophy (Acute) Onychomycosis (Acute) Urge incontinence (Acute) DOMINIC (generalized anxiety disorder) (Acute) HERMINIO (obstructive sleep apnea) (Chronic) Osteopenia (Acute) Fecal soiling due to fecal incontinence (Acute) Chronic diarrhea (Acute) Fecal incontinence (Acute) External hemorrhoids without complication (Acute) Internal hemorrhoids without complication (Acute) Open fracture of left distal radius and ulna (Acute 11/25/22) Cellulitis (Acute) Right rib fracture (Acute) Restless leg syndrome (Acute) Right upper lobe pulmonary infiltrate (Acute) Hemoptysis (Acute) HTN (hypertension) (Chronic) COPD (chronic obstructive pulmonary disease) (Chronic) Chest pain (Acute) Medical History (Updated 05/15/24 @ 13:11 by Demetrio Vazquez MD) History of emphysema Essential hypertension Mild neurocognitive disorder Dilation of aorta Insomnia Urinary incontinence Benign neoplasm of meninges Atypical chest pain Pain in thoracic spine Nasal discharge Night sweat Petechial hemorrhage Surgical wound dehiscence Fracture of right distal radius Lumbar spondylosis Thoracic aortic ectasia History of SCC (squamous cell carcinoma) of skin (~2016) completely excised from right neck Meningioma History of gastroesophageal reflux (GERD) C. difficile diarrhea (~09/2019) Urinary frequency Surgical History History of right hip replacement History of bunionectomy History of back surgery lumbar decompression 09/13/22 L5-S1 and cyst removal History of left knee replacement History of total right knee replacement (~2016) History of total right hip arthroplasty (~2014) S/P appendectomy Family History Mother Leukemia Hypertension Father Bladder cancer Emphysema of lung Social History Smoking/Tobacco Use Status: Former Tobacco Use Quit Date: 09/13/99 Smoking risk assessment performed?: Yes Alcohol Intake: never Drug use: Never Substance use type: does not use Housing: house Current gender identity: female Do you feel safe at home: Yes Do you feel safe in your relationship?: Yes
[2024-05-15] MEDS: Acetaminophen 500 MG TAB 1000 MG PO (10:49)
[2024-05-15 10:50] LABS: Abs Immature Grans 0.02 10^3/uL (0.0-0.06); Absolute Basophil Count 0.06 10^3/uL (0.0-0.2); Absolute Eosinophil Count 0.16 10^3/uL (0.0-0.7); Absolute Lymphocyte Count 0.97 10^3/uL (1.2-3.4); Absolute Monocyte Count 0.47 10^3/uL (0.1-0.8); Absolute Neutrophil Count 4.38 10^3/uL (1.2-6.7); Eosinophils % 2.6 %; HGB 12.5 g/dL (11.2-15.7); Immature Grans % 0.3 %; MCH 31.9 pg (27.0-33.0); MCHC 32.9 % (32.0-36.0); MCV 97 fL (80-95); MPV 8.6 fL (8.0-11.0); Monocytes % 7.8 %; Neutrophils % 72.3 %; Platelet Count 262 10^3/uL (130-400); RBC 3.92 10^6/uL (3.93-5.22); RDW 12.8 % (11.7-14.6); RDW-SD 45.4 fL; WBC 6.06 10^3/uL (4.4-10.8)
[2024-05-15] MEDS: Lidocaine 5% Patch 1 PATCH TP (10:51)
[2024-05-15] MEDS: methylPREDNISolone SUCC 125 MG VIAL IVP (10:51)
[2024-05-15 11:04] LABS: ALT 19 U/L (14-59); AST 23 U/L (15-37); Alkaline Phosphatase 77 U/L (46-116); Anion Gap 9.2 mmol/L (3-11); BUN 32 mg/dL (7-18); Bilirubin, Total 0.33 mg/dL (0.2-1.0); CO2 25.8 mmol/L (21.0-32.0); CREATININE 1.1 mg/dL (0.55-1.02); Calcium 9.3 mg/dL (8.5-10.1); Chloride 107 mmol/L (98-107); Estimated GFR 49.86 (mL/min/1.73m2); Glucose 84 mg/dL (74-106); Potassium 4.5 mmol/L (3.5-5.1); Sodium 142 mmol/L (136-145); Total Protein 7.2 g/dL (6.4-8.2)
--- NOTE | 2024-05-15 11:30 | DI.VRAD_ITS ---
PROCEDURE INFORMATION: Exam: CT Lumbar Spine Without Contrast Exam date and time: 05/15/2024 10:59 AM Age: 83 years old Clinical indication: Other: Pain TECHNIQUE: Imaging protocol: Computed tomography of the lumbar spine without contrast. Radiation optimization: All CT scans at this facility use at least one of these dose optimization techniques: automated exposure control; mA and/or kV adjustment per patient size (includes targeted exams where dose is matched to clinical indication); or iterative reconstruction. COMPARISON: MR LUMBAR SPINE WO 10/26/2022 2:43 PM FINDINGS: Bones/joints: Right total hip replacement. Levoscoliosis of the lumbar spine. Mild broad-based disc bulge at L1/L2 may represent degenerative disc disease. Broad-based disc bulge, facet hypertrophy, and ligament hypertrophy at L2/L3 and L3/L4 and L4/L5 consistent with spinal stenosis. . 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 Soft tissues: Unremarkable. IMPRESSION: 1. 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 2. Broad-based disc bulge, facet hypertrophy, and ligament hypertrophy at L2/L3 and L3/L4 and L4/L5 consistent with spinal stenosis. . Dictated and Authenticated by: Rigo Sanchez MD. Ordering:DEACON Atkinson MD
[2024-05-15] MEDS: oxyCODONE 5 MG TAB 2.5 MG PO (12:04)
[2024-05-15 12:38] LABS: Bilirubin Negative (Negative); Blood Negative (Negative); Clarity Sl Cloudy (Clear); Glucose Negative (Negative); Ketones Negative (Negative); Leukocyte Esterase Negative (Negative); Nitrite Negative (Negative); Specific Gravity >= 1.030 (1.005-1.025); Urobilinogen 0.2 mg/dL (Up to 0.2); pH 5.5 (5-8)
[2024-05-15 13:29] VITALS: BP 109/88; PULSE 71; RESP 21; TEMP 36; O2SAT 98
== END 2024-05-15 13:44 | disposition home or self-care (01) ==
PROVIDERS: Emergency Provider Emergency Medicine; PCP Family Medicine
DX: M51.36 Other intervertebral disc degeneration, lumbar region (principal); M48.061 Spinal stenosis, lumbar region without neurogenic claudication; I10 Essential (primary) hypertension; Z87.891 Personal history of nicotine dependence
CPT/HCPCS: 36415; 80053; 96374; 99284; 72131; 81003; 85025; J2919

== ENCOUNTER 2024-05-16 19:01 | Emergency (ER) | payer MEDICARE, SELFPAY ==
[2024-05-16 19:05] VITALS: BP 201/84; PULSE 75; RESP 15; O2SAT 97
--- NOTE | 2024-05-16 19:12 | W.ED.GENAD ---
Discharge Plan Disposition Patient Disposition: Home Condition: Stable Discharge Details Clinical Impression: Lumbar back pain with radiculopathy affecting left lower extremity Primary Care Provider: Marivel Collins ED Provider: Jerry Venegas Home Meds and New Rx's Prescriptions: New methocarbamol 750 mg tablet 750 mg PO QID 10 Days Qty: 40 0RF Continued levalbuterol tartrate [Xopenex HFA] 45 mcg/actuation HFA aerosol inhaler 1 inh inhalation Q6H PRN galantamine 24 mg capsule,ext rel. pellets 24 hr 24 mg PO QAM Rx Instructions: administer with breakfast hydroxyzine HCl 25 mg tablet 25 mg PO QID PRN indapamide 1.25 mg tablet 1.25 mg PO QAM magnesium 250 mg tablet 250 mg PO DAILY MaculaPF 10-20-13-4 mg capsule 1 cap PO DAILY diltiazem HCl 240 mg capsule,extended release 24hr 240 mg PO DAILY lisinopril 40 mg tablet 40 mg PO DAILY cholecalciferol (vitamin D3) 25 mcg (1,000 unit) capsule 25 mcg PO DAILY caffeine 200 mg tablet 200 mg PO DAILY PRN hydrocortisone 2.5 % cream See Rx Instructions .ROUTE .COMPLEX Qty: 30 12RF Dose Instruction: APPLY TOPICALLY FOUR TIMES A DAY NEEDED FOR HEMORRHOIDS Rx Instructions: APPLY TOPICALLY FOUR TIMES A DAY NEEDED FOR HEMORRHOIDS prednisone 20 mg tablet 60 mg PO DAILY 4 Days Qty: 12 0RF hydrocodone-acetaminophen 5-325 mg tablet 1 tab PO TID PRN Patient Comments: TAKE ONE TABLET BY MOUTH THREE TIMES A DAY NEEDED sertraline 25 mg tablet 75 mg PO DAILY Patient Comments: TAKE THREE TABLETS BY MOUTH EVERY DAY pregabalin 25 mg capsule 25 mg PO DAILY Patient Comments: TAKE ONE CAPSULE BY MOUTH AT BEDTIME NEEDED Discharge Instructions Instructions: Methocarbamol, Low Back Pain ED Additional Instructions: You were seen in the emergency department for your likely sciatica with lumbar back pain and radiculopathy affecting your left lower extremity. You still had your lidocaine patch on from Wednesday's visit, these need to be applied only for 12 hours and a new 1 needs to be applied each day. You need to purchase these [id number] from the pharmacy. Continue with your previously prescribed prednisone course-this acts as an anti-inflammatory especially in the nervous system You need to be taking 650 mg of acetaminophen every 6 hours, please note that your Mer[place] contains 325 mg of acetaminophen and this must be factored into the total. Half-Way between Tylenol dosings you need to be taking 400 mg of ibuprofen also on a 6-hour schedule or 4 times per day. Take the prescribed methocarbamol which is a skeletal muscle relaxer as prescribed. Apply the topical Voltaren gel as needed to the area of pain, this might be extra useful during the times that the lidocaine patch must be off. Alternate heat and ice to the area. Continue with PT visits, plus or minus chiropractor visits but I do recommend against having her neck adjusted. Please return to the emergency department for complete numbness of the left lower extremity, inability to move or walk, urinary retention or bowel incontinence, numbness to the groin. Please note that some of these medications can increase your fall risk and need to be extra careful when taking your Merced even at home. Referrals: Marivel Collins [Primary Care Provider] - HPI General Date/Time Provider Initiated Documentation: 05/16/24 19:03. HPI Narrative: 83 year-old female presents to ED today by POV/ambulating with a chief complaint of L sided lumbar back pain with radiculopathy shooting down L leg with onset since last Wednesday- had been seen here prior and given prednisone but hasn't picked it up yet. Quality described as excruciating sharp shooting pains from L back down the L leg, no radiation to urinary retention, bowel incontinence, saddle anesthesia, history of IVDU, fever, complete numbness, inability to move L leg. Severity is described as 10/10. Palliating factors include taking subtherpeutic OTC analgesics regimen, has Merced at home. Provoking factors include nothing specific. Events leading up to the incident/Associated Symptoms: Patient endorses history of R sided sciatica, was at PT today for this issue. Patient not anticoagulated. Related Data Home Medications ?Medication ?Instructions ?Recorded ?Confirmed levalbuterol tartrate 45 1 inh inhalation Q6H PRN 05/18/23 05/16/24 mcg/actuation aerosol inhaler (Xopenex HFA) caffeine 200 mg tablet 200 mg PO DAILY PRN 07/12/23 05/16/24 cholecalciferol (vitamin D3) 25 25 mcg PO DAILY 07/12/23 05/16/24 mcg (1,000 unit) capsule choline 10 mg-lutein 20 1 cap PO DAILY 07/12/23 05/16/24 mg-zeaxanthin 13 mg-astaxanthin 4 mg capsule (MaculaPF) diltiazem HCl 240 mg 240 mg PO DAILY 07/12/23 05/16/24 capsule,extended release 24 hr lisinopril 40 mg tablet 40 mg PO DAILY 07/12/23 05/16/24 hydrocodone 5 mg-acetaminophen 325 1 tab PO TID PRN 10/14/23 05/16/24 mg tablet galantamine 24 mg 24 hr 24 mg PO QAM 10/29/23 05/16/24 capsule,extended release hydroxyzine HCl 25 mg tablet 25 mg PO QID PRN 10/29/23 05/16/24 indapamide 1.25 mg tablet 1.25 mg PO QAM 10/29/23 05/16/24 magnesium 250 mg tablet 250 mg PO DAILY 10/29/23 05/16/24 hydrocortisone 2.5 % topical cream See Rx Instructions .Route 01/27/24 05/16/24 .COMPLEX #30 grams prednisone 20 mg tablet 60 mg (3 x 20 mg) PO DAILY 4 days 05/15/24 05/16/24 #12 tabs methocarbamol 750 mg tablet 750 mg PO QID 10 days #40 tabs 05/16/24 pregabalin 25 mg capsule 25 mg PO DAILY 05/16/24 05/16/24 sertraline 25 mg tablet 75 mg PO DAILY 05/16/24 05/16/24 Previous Rx's ?Medication ?Instructions ?Recorded hydrocortisone 2.5 % topical cream See Rx Instructions .Route 01/27/24 .COMPLEX #30 grams prednisone 20 mg tablet 60 mg (3 x 20 mg) PO DAILY 4 days 05/15/24 #12 tabs methocarbamol 750 mg tablet 750 mg PO QID 10 days #40 tabs 05/16/24 Allergies Allergy/AdvReac Type Severity Reaction Status Date / Time morphine Allergy Severe Psychosis Verified 05/15/24 10:11 Penicillins Allergy Intermediate Hives Verified 05/15/24 10:11 General Stated Complaint: Nk/Back Pain CASEY: 4 Review of Systems All systems reviewed & are unremarkable except as noted in HPI and below Exam Narrative Exam Narrative: GENERAL APPEARANCE: Well-nourished, non-toxic, awake and alert, atraumatic, no acute distress. SKIN: Warm, pink, dry, intact, without rashes/lesions/ulcerations. HEAD: Normocephalic, atraumatic, normal hair distribution for gender/age. EYES: Normal conjunctiva, no exudates on lids/lashes. ENT: Nares patent, no circumoral cyanosis, no facial swelling NECK: Supple, trachea midline, painless cervical ROM. LUNGS/CHEST: Non-labored respirations, normal A/P diameter, symmetrical expansion, no chest wall deformity HEART (CV/PV): No peripheral edema, no JVD. ABDOMEN: Soft, non-distended, no guarding. MSK: Normal ROM, no swelling/deformity to bilateral UEs or LEs, moving all extremities without weakness, no cyanosis, spine midline without tenderness, normal curvature. BACK: Left lumbar paraspinal tenderness without vertebral crepitus/step-offs, able to SLR left leg, strength 5/5, sensation intact, pain is in sciatic distribution down the posterior left leg, no CVA tenderness to percussion NEURO: Mental Status AAOx4 - alert to person, place, time, events No facial droop, no forehead involvement. Motor: No focal weakness - strength 5/5 in bilateral UEs and LEs, proximal and distal, symmetric. Sensory: sensation intact to light touch globally. Gait normal: patient ambulated without ataxia into ED room. PSYCH: euthymic, cooperative, pleasant, appropriate speech Course Vital Signs Vital signs: Vital Signs Pulse 75 05/16/24 19:05 Respiratory Rate 15 05/16/24 19:05 Blood Pressure 201/84 H 05/16/24 19:05 Pulse Oximetry 97 05/16/24 19:05 Pulse 75 05/16/24 19:05 Respiratory Rate 15 05/16/24 19:05 Respiratory Effort Normal 05/16/24 19:11 Blood Pressure 201/84 H 05/16/24 19:05 Blood Pressure Position Sitting 05/16/24 19:05 Pulse Oximetry 97 05/16/24 19:05 Oxygen Delivery Method Room Air 05/16/24 19:05 Oxygen Flow Rate 0 05/16/24 19:05 Pain Level 10 05/16/24 19:11 Medical Decision Making This dictation utilizes [id number] dictation software and may contain unedited grammatical errors. 83 year-old female presents to ED today by POV/ambulating with a chief complaint of L sided lumbar back pain with radiculopathy shooting down L leg with onset since last Wednesday- had been seen here prior and given prednisone but hasn't picked it up yet. Quality described as excruciating sharp shooting pains from L back down the L leg, no radiation to urinary retention, bowel incontinence, saddle anesthesia, history of IVDU, fever, complete numbness, inability to move L leg. Severity is described as 10/10. Palliating factors include taking subtherpeutic OTC analgesics regimen, has Merced at home. Provoking factors include nothing specific. Events leading up to the incident/Associated Symptoms: Patient endorses history of R sided sciatica, was at PT today for this issue. Patients' medical history: Hypertension, lumbar spondylosis, history of right total hip replacement, right total knee replacement, left total knee replacement, osteopenia. Family and social history: noncontributory. Pertinent exam findings / vital signs include left lumbar paraspinal tenderness with radiation and sciatic distribution, sensation intact, strength 5/5 in left lower extremity, no saddle anesthesia. Differential / pathologies of concern include sciatica, unlikely lumbar fracture- no trauma, not cauda equina. Diagnostic studies of: -none. Interventions of: -Patient education on better regimen. ED Course/Assessment/Plan: 83-year-old female presents after being seen earlier this week for sciatica, patient is still wearing lidocaine patch that was applied at that time. Discussed better more consistent regimen for back pain, patient does have PT follow-up, has no findings to suggest emergent spinal pathology, will encourage her to use better OTC regimen, added Voltaren, Lidoderm patching daily, prescription for methocarbamol, has outpatient prednisone prescription that she just picked up today and has not started, stressed strict return criteria for any complete neurovascular compromise, urinary or bowel changes, numbness to the groin. Findings not consistent with cauda equina, trauma/fracture, NV compromise. Disposition of Lumbar Back Pain with Radiculopathy Affecting Left Lower Extremity. Patient verbalized understanding of the plan and return to ED criteria and engaged in shared decision making. Medical Records Medical records reviewed: Yes I reviewed the patient's medical records. Quality:SDOH Health Related Social Needs: Health related social needs risk of homeless PFSH All Active Problems (Updated 05/16/24 @ 19:48 by PIYUSH Garcia) Lumbar back pain with radiculopathy affecting left lower extremity (Acute) Back pain (Acute) Thoracic degenerative disc disease (Acute) Hammertoe of right foot (Acute) Bunion, right foot (Acute) Dysfunction of eustachian tube (Acute) Thoracic spondylosis without myelopathy (Acute) OAB (overactive bladder) (Acute) Otitis media (Acute) URI, acute (Acute) Pain in left foot (Acute) Nail dystrophy (Acute) Onychomycosis (Acute) Urge incontinence (Acute) DOMINIC (generalized anxiety disorder) (Acute) HERMINIO (obstructive sleep apnea) (Chronic) Osteopenia (Acute) Fecal soiling due to fecal incontinence (Acute) Chronic diarrhea (Acute) Fecal incontinence (Acute) External hemorrhoids without complication (Acute) Internal hemorrhoids without complication (Acute) Open fracture of left distal radius and ulna (Acute 11/25/22) Cellulitis (Acute) Right rib fracture (Acute) Restless leg syndrome (Acute) Right upper lobe pulmonary infiltrate (Acute) Hemoptysis (Acute) HTN (hypertension) (Chronic) COPD (chronic obstructive pulmonary disease) (Chronic) Chest pain (Acute) Medical History (Updated 05/16/24 @ 19:48 by PIYUSH Garcia) History of emphysema Essential hypertension Mild neurocognitive disorder Dilation of aorta Insomnia Urinary incontinence Benign neoplasm of meninges Atypical chest pain Pain in thoracic spine Nasal discharge Night sweat Petechial hemorrhage Surgical wound dehiscence Fracture of right distal radius Lumbar spondylosis Thoracic aortic ectasia History of SCC (squamous cell carcinoma) of skin (~2016) completely excised from right neck Meningioma History of gastroesophageal reflux (GERD) C. difficile diarrhea (~09/2019) Urinary frequency Surgical History History of right hip replacement History of bunionectomy History of back surgery lumbar decompression 09/13/22 L5-S1 and cyst removal History of left knee replacement History of total right knee replacement (~2016) History of total right hip arthroplasty (~2014) S/P appendectomy Family History Mother Leukemia Hypertension Father Bladder cancer Emphysema of lung Social History Smoking/Tobacco Use Status: Former Tobacco Use Quit Date: 09/13/99 Smoking risk assessment performed?: Yes Alcohol Intake: never Drug use: Never Substance use type: does not use Housing: house Current gender identity: female Do you feel safe at home: Yes Do you feel safe in your relationship?: Yes
[2024-05-16] MEDS: Acetaminophen 325 MG TAB 650 MG PO (19:34)
[2024-05-16] MEDS: Diclofenac 1% Gel 100 GM TUBE TP (19:34)
[2024-05-16] MEDS: Methocarbamol 750 MG TAB 1500 MG PO (19:35)
[2024-05-16] MEDS: Ibuprofen 400 MG TAB PO (19:35)
[2024-05-16] MEDS: oxyCODONE 5 MG TAB PO (19:35)
[2024-05-16] MEDS: Lidocaine 5% Patch 1 PATCH TP (19:35)
== END 2024-05-16 20:03 | disposition home or self-care (01) ==
LOC: ER 20:00
PROVIDERS: Emergency Provider Physician Assistant; PCP Family Medicine
DX: M54.16 Radiculopathy, lumbar region (principal)
CPT/HCPCS: 99283

== ENCOUNTER 2024-07-12 09:17 | Outpatient (REF) | payer MEDICARE, SELFPAY ==
[2024-07-11 21:10] LABS: Abs Immature Grans 0.02 10^3/uL (0.0-0.06); Absolute Basophil Count 0.05 10^3/uL (0.0-0.2); Absolute Lymphocyte Count 1.06 10^3/uL (1.2-3.4); Absolute Monocyte Count 0.33 10^3/uL (0.1-0.8); Absolute Neutrophil Count 5.84 10^3/uL (1.2-6.7); Basophils % 0.7 %; Eosinophils % 1.4 %; HCT 38.1 % (36.0-46.0); HGB 12.5 g/dL (11.2-15.7); Immature Grans % 0.3 %; Lymphocytes % 14.3 %; MCH 32.1 pg (27.0-33.0); MCHC 32.8 % (32.0-36.0); MCV 98 fL (80-95); MPV 9.6 fL (8.0-11.0); Monocytes % 4.5 %; Neutrophils % 78.8 %; Platelet Count 323 10^3/uL (130-400); RDW 13.8 % (11.7-14.6); RDW-SD 49.1 fL
[2024-07-11 21:21] LABS: Iron 75 ug/dL (50-170); Total Iron Binding Capacity 316 ug/dL (250-450); Transferrin Sat 24 % (15-50)
[2024-07-11 21:45] LABS: Anion Gap 10.2 mmol/L (3-11); BUN 31 mg/dL (7-18); CO2 26.8 mmol/L (21.0-32.0); Calcium 9.9 mg/dL (8.5-10.1); Chloride 108 mmol/L (98-107); Ferritin 43 ng/mL (8-252); Glucose 131 mg/dL (74-106); Magnesium 2.2 mg/dL (1.8-2.4); Potassium 4.3 mmol/L (3.5-5.1); Sodium 145 mmol/L (136-145); TSH (W/Ref FT4) 0.71 uIU/mL (0.36-3.74); Vitamin B12 > 2000 pg/mL (193-986)
== END 2024-07-12 09:18 | disposition home or self-care (01) ==
LOC: NCHCN 09:17
PROVIDERS: PCP Family Medicine; Visit Provider Family Medicine
DX: R53.83 Other fatigue (principal)
CPT/HCPCS: 80048; 82607; 82728; 83540; 83550; 83735; 84443; 85025

== ENCOUNTER 2024-08-14 02:37 | Outpatient (CLI) | payer MEDICARE, SELFPAY ==
--- NOTE | 2024-08-14 | DI.MRI_ITS ---
Exam(s) MR LUMBAR SPINE WO EXAM: MR LUMBAR SPINE WO CLINICAL HISTORY: SPINAL STENOSIS LUMBAR REGION M48.061. TECHNIQUE: Multiplanar multisequence MRI of the Lumbar spine was performed. COMPARISON: MR MR LUMBAR SPINE WO from 10/26/[address] LUMBAR SPINE WO from 05/15/2024 FINDINGS: Bones: The last intervertebral disc space is designated the L5/S1 level for the numbering purpose of this examination. The vertebral body heights are well maintained. There is a biconvex scoliosis of the thoracolumbar spine. Multilevel degenerative endplate signal changes are seen. The findings are most marked at the L1-L2 level. Cord: The conus tip ends at the T12 level. It is of normal size and signal intensity. T12-L1: No disc herniations or bulges are present. There are degenerative changes seen of the left fa cet joint. No significant central spinal canal stenosis or right neural foraminal stenosis is seen.M [id number] left neural foraminal stenosis is present. L1-2: There are degenerative changes of the facets and mild diffuse disc bulge. There is mild narrow ing of the central spinal canal. No significant right neural foraminal stenosis is seen. Moderately severe left neural foraminal stenosis is present. L2-3: There is a mild diffuse disc bulge. There are hypertrophic changes of the facets and ligamentu m flavum. These all contribute to cause moderately severe central spinal canal stenosis. Mild-to-mo derate bilateral neural foraminal stenosis is present. L3-4: There is prominence of the osteophyte disc complex at this level. There are hypertrophic aguillon es of the facets and ligamentum flavum. These all contribute to cause moderately severe central spin al canal stenosis. No significant right neural foraminal stenosis is seen. There is [id number] left neural foraminal stenosis. L4-5: No disc herniations or bulges are present. There are hypertrophic changes of the facets and lig amentum flavum. The findings result in moderate central spinal canal stenosis.There is moderate righ t neural foraminal stenosis and [id number]-[id number] left neural foraminal stenosis. L5-S1: There is a mild diffuse disc bulge which extends into the left neural foramen. There are dege nerative changes of the facets. No significant central spinal canal stenosis is present. There is n o right neural foraminal stenosis there is marked left neural foraminal stenosis secondary to the fac et hypertrophy and disc herniation. Soft tissues: The visualized SI joints and sacrum are well maintained. The paraspinal soft tissues ar e unremarkable. Visualized abdominal organs: There are bilateral simple renal cysts. No follow-up is recommended. IMPRESSION: Multilevel degenerative changes in the lumbar spine resulting in central spinal canal and neural fora jennifer stenosis. Please refer to the above discussion for the individual levels. DATA REPOSITORY:
== END 2024-08-14 02:57 ==
LOC: DI 02:37
PROVIDERS: PCP Family Medicine; Visit Provider Family Medicine
DX: M48.061 Spinal stenosis, lumbar region without neurogenic claudication (principal)
CPT/HCPCS: 72148

== ENCOUNTER 2024-09-26 08:32 | Outpatient (CLI) | payer MEDICARE, SELFPAY ==
--- NOTE | 2024-09-26 08:30 | RT.EKG_ITS ---
APPROVED REPORT Exam: Resting ECG Reason for Exam: Patient Location: O HR:69 bpm ECG Measurements Heart Rate 69 AXIS VA 180 P 57 QRSd 104 QRS -25 QT 376 T 56 QTc 403 Conclusion Sinus rhythm...normal P axis, V-rate 50- 99 Probable left atrial enlargement...P >50mS, <-0.10mV V1 Left ventricular hypertrophy...multiple LVH criteria
== END 2024-09-26 08:33 | disposition home or self-care (01) ==
LOC: DI.CARD 08:33
PROVIDERS: PCP Family Medicine; Visit Provider Internal Medicine Cardiovascular Disease
DX: R07.9 Chest pain, unspecified (principal)
CPT/HCPCS: 93010

== ENCOUNTER → 2024-09-26 13:14 | Outpatient (BNVA) | payer MEDICARE, SELFPAY | PROVIDERS: PCP Family Medicine; Referring Provider Family Medicine; Visit Provider Internal Medicine Cardiovascular Disease | DX: R07.89 Other chest pain (principal); I42.2 Other hypertrophic cardiomyopathy; I77.819 Aortic ectasia, unspecified site | CPT/HCPCS: 93005; 99213 ==

== ENCOUNTER 2024-10-19 16:22 | Outpatient (REF) | payer MEDICARE, SELFPAY ==
[2024-10-19 14:40] LABS: HCT 40.5 % (36.0-46.0); HGB 13.3 g/dL (11.2-15.7); MCH 32.3 pg (27.0-33.0); MCHC 32.8 % (32.0-36.0); MCV 98 fL (80-95); MPV 9.4 fL (8.0-11.0); Platelet Count 293 10^3/uL (130-400); RBC 4.12 10^6/uL (3.93-5.22); RDW 13.1 % (11.7-14.6); RDW-SD 47.4 fL; WBC 7.76 10^3/uL (4.4-10.8)
[2024-10-19 14:50] LABS: ALT 23 U/L (14-59); AST 17 U/L (15-37); Albumin 4.5 g/dL (3.4-5.0); Alkaline Phosphatase 98 U/L (46-116); Anion Gap 7.8 mmol/L (3-11); BUN 29 mg/dL (7-18); Bilirubin, Total 0.45 mg/dL (0.2-1.0); CO2 28.2 mmol/L (21.0-32.0); CREATININE 0.8 mg/dL (0.55-1.02); Calcium 9.9 mg/dL (8.5-10.1); Chloride 111 mmol/L (98-107); Estimated GFR 73.06 (mL/min/1.73m2); Glucose 90 mg/dL (74-106); Potassium 4.3 mmol/L (3.5-5.1); Sodium 147 mmol/L (136-145)
== END 2024-10-19 16:23 | disposition home or self-care (01) ==
LOC: NCHCN 16:22
PROVIDERS: PCP Family Medicine; Visit Provider Family Medicine
DX: Z01.818 Encounter for other preprocedural examination (principal)
CPT/HCPCS: 80053; 85027

== ENCOUNTER → 2024-11-27 14:05 | Outpatient (BNVA) | payer MEDICARE, SELFPAY | PROVIDERS: PCP Family Medicine; Referring Provider Family Medicine; Visit Provider Urology | DX: N39.41 Urge incontinence (principal); N32.81 Overactive bladder | CPT/HCPCS: 99213 ==

== ENCOUNTER 2024-12-25 08:19 | Day surgery (SDC) | payer MEDICARE, SELFPAY ==
[2024-12-25 08:58] VITALS: BP 172/78; PULSE 70; RESP 20; TEMP 36.5; O2SAT 98
[2024-12-25] MEDS: Sulfameth/Trimeth DS TAB 1 TAB PO (09:10)
[2024-12-25] MEDS: Lactated Ringers 1,000 ML 80 ML IV (09:18)
--- NOTE | 2024-12-25 09:53 | W.PM.HP.N ---
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 History of Present Illness History of Present Illness Chief Complaint: Overactive Bladder Narrative: This is an 83-year-old woman who has a history of urinary incontinence related to an overactive bladder. She has failed behavioral modification and beta 3 agonist therapy. She has had some benefit from Botox injections into the detrusor. Her last injection was about 6 months ago and she presents for a repeat injection She continues to void frequently but is not having any dysuria or gross hematuria. She had no adverse reactions from her last Botox injection. She has not gone into retention. Review of Systems Narrative: No fevers or chills No vision change or dysphasia No diabetes or thyroid dysfunction COPD, sleep apnea. No hemoptysis No chest pain or palpitations No nausea, vomiting, hepatitis, ulcers, jaundice No seizures, strokes or peripheral neuropathy No bleeding disorders or anemia No gout PFSH All Active Problems Other amnesia (Acute) Thoracic degenerative disc disease (Acute) Hammertoe of right foot (Acute) Bunion, right foot (Acute) Dysfunction of eustachian tube (Acute) Thoracic spondylosis without myelopathy (Acute) OAB (overactive bladder) (Acute) Otitis media (Acute) URI, acute (Acute) Pain in left foot (Acute) Nail dystrophy (Acute) Onychomycosis (Acute) Urge incontinence (Acute) DOMINIC (generalized anxiety disorder) (Acute) HERMINIO (obstructive sleep apnea) (Chronic) Osteopenia (Acute) Fecal soiling due to fecal incontinence (Acute) Chronic diarrhea (Acute) Fecal incontinence (Acute) External hemorrhoids without complication (Acute) Internal hemorrhoids without complication (Acute) Open fracture of left distal radius and ulna (Acute 11/25/22) Cellulitis (Acute) Right rib fracture (Acute) Restless leg syndrome (Acute) Right upper lobe pulmonary infiltrate (Acute) Hemoptysis (Acute) HTN (hypertension) (Chronic) COPD (chronic obstructive pulmonary disease) (Chronic) Chest pain (Acute) Medical History Strain of trapezius muscle Spontaneous intracranial hemorrhage senior living current use of opiate analgesic Diarrhea Dyspnea Memory impairment Fatigue Dizziness Lumbosacral radiculopathy Degenerative lumbar spinal stenosis Hemorrhoids Diastolic dysfunction Cardiomegaly Depressive disorder History of emphysema Essential hypertension Mild neurocognitive disorder Dilation of aorta Insomnia Urinary incontinence Benign neoplasm of meninges Atypical chest pain Per pt. states she has had this for 15 years, of unknown orgin, and they have yet to find out why Pain in thoracic spine Nasal discharge Night sweat Petechial hemorrhage Surgical wound dehiscence Fracture of right distal radius Lumbar spondylosis Thoracic aortic ectasia History of SCC (squamous cell carcinoma) of skin (~2016) completely excised from right neck Meningioma History of gastroesophageal reflux (GERD) C. difficile diarrhea (~09/2019) Urinary frequency Surgical History History of local excision of skin lesion 09/13/2016 SCC R neck History of right hip replacement History of bunionectomy History of back surgery lumbar decompression 09/13/22 L5-S1 and cyst removal History of left knee replacement History of total right knee replacement (~2016) History of total right hip arthroplasty (~2014) S/P appendectomy Family History (Updated 10/02/24 @ 14:25 by Kady Santiago RN) Mother Leukemia Hypertension Father Bladder cancer Emphysema of lung Son Substance abuse Social History Smoking/Tobacco Use Status: Former Tobacco Use Quit Date: 09/13/99 Smoking risk assessment performed?: Yes Alcohol Intake: never Drug use: Never Substance use type: does not use Housing: house Current gender identity: female Do you feel safe at home: Yes Do you feel safe in your relationship?: Yes Meds Allergies and Home Medications Allergies Allergy/AdvReac Type Severity Reaction Status Date / Time morphine Allergy Severe Psychosis Verified 12/25/24 08:54 Penicillins Allergy Intermediate Hives Verified 12/25/24 08:54 indapamide AdvReac Unknown acute Verified 12/25/24 08:54 kidney injury Home Medications ?Medication ?Instructions ?Recorded ?Confirmed ?Type caffeine 200 mg tablet 200 mg PO DAILY PRN 07/12/23 12/22/24 History cholecalciferol (vitamin D3) 25 25 mcg PO DAILY 07/12/23 12/22/24 History mcg (1,000 unit) capsule choline 10 mg-lutein 20 1 cap PO DAILY 07/12/23 12/25/24 History mg-zeaxanthin 13 mg-astaxanthin 4 mg capsule (MaculaPF) diltiazem HCl 240 mg 240 mg PO DAILY 07/12/23 12/25/24 History capsule,extended release 24 hr lisinopril 40 mg tablet 40 mg PO DAILY 07/12/23 12/25/24 History hydrocodone 5 mg-acetaminophen 325 1 tab PO TID PRN 10/14/23 12/22/24 History mg tablet magnesium 250 mg tablet 250 mg PO DAILY 10/29/23 12/22/24 History hydrocortisone 2.5 % topical cream See Rx Instructions .Route 01/27/24 12/22/24 Rx .COMPLEX #30 grams pregabalin 25 mg capsule 25 mg PO DAILY 05/16/24 12/25/24 History duloxetine 30 mg capsule,delayed 30 mg PO DAILY 10/02/24 12/25/24 History release fluticasone fur. 100 mcg-umeclid 1 inh inhalation DAILY 10/02/24 12/25/24 History 62.5 mcg-vilant 25 mcg inhalat.powder (Trelegy Ellipta) fluticasone propionate 50 1 spray intranasal DAILY PRN 10/02/24 12/25/24 History mcg/actuation nasal spray,suspension (Flonase Allergy Relief) Exam Const General: cooperative Neck Neck: supple Resp Effort & Inspection: normal respiratory effort Auscultation: clear to auscultation bilaterally Cardio Rate: regular rate Rhythm: regular rhythm GI Palpation: soft Neuro General: patient alert, patient awake and patient oriented x3 Results Last Vital Signs Temp 36.5 C 12/25/24 08:58 Pulse 70 12/25/24 08:58 Resp 20 12/25/24 08:58 BP 172/78 H 12/25/24 08:58 Pulse Ox 98 12/25/24 08:58 Time Spent Time spent with Patient: <40 minutes Time was spent: other
--- NOTE | 2024-12-25 10:14 | ANES.PREOP_ITS ---
General Info Date of Service Date Performed: 12/25/24 Height: 5 ft 7.5 in Weight: 58 kg Body Mass Index (BMI): 19.7 Surgical Procedure: Operation Date: 12/25/24 09:40 Proposed Procedure Side Surgeon p Cystoscopy/Injection of Botox into Detrusor Smooth Thomas MD Actual Procedure Side Surgeon p Cystoscopy/Injection of Botox into Detrusor Not Applicable Smooth Thomas MD Meds Allergies and Home Medications Allergies Allergy/AdvReac Type Severity Reaction Status Date / Time morphine Allergy Severe Psychosis Verified 12/25/24 08:54 Penicillins Allergy Intermediate Hives Verified 12/25/24 08:54 indapamide AdvReac Unknown acute Verified 12/25/24 08:54 kidney injury Home Medication ?Medication ?Instructions ?Recorded caffeine 200 mg tablet 200 mg PO DAILY PRN 07/12/23 cholecalciferol (vitamin D3) 25 25 mcg PO DAILY 07/12/23 mcg (1,000 unit) capsule choline 10 mg-lutein 20 1 cap PO DAILY 07/12/23 mg-zeaxanthin 13 mg-astaxanthin 4 mg capsule (MaculaPF) diltiazem HCl 240 mg 240 mg PO DAILY 07/12/23 capsule,extended release 24 hr lisinopril 40 mg tablet 40 mg PO DAILY 07/12/23 hydrocodone 5 mg-acetaminophen 325 1 tab PO TID PRN 10/14/23 mg tablet magnesium 250 mg tablet 250 mg PO DAILY 10/29/23 hydrocortisone 2.5 % topical cream See Rx Instructions .Route 01/27/24 .COMPLEX #30 grams pregabalin 25 mg capsule 25 mg PO DAILY 05/16/24 duloxetine 30 mg capsule,delayed 30 mg PO DAILY 10/02/24 release fluticasone fur. 100 mcg-umeclid 1 inh inhalation DAILY 10/02/24 62.5 mcg-vilant 25 mcg inhalat.powder (Trelegy Ellipta) fluticasone propionate 50 1 spray intranasal DAILY PRN 10/02/24 mcg/actuation nasal spray,suspension (Flonase Allergy Relief) Current Visit Medications: Current Medications Generic Name Dose Route Start Last Admin Trade Name Freq PRN Reason Stop Dose Admin OnabotulinumtoxinA 100 units/ 0 units 12/25/24 06:00 Sodium Chloride 20 ml IJ 12/25/24 23:59 DIRECTED MIKE Ringer's Solution 1,000 mls @ 80 mls/hr 12/25/24 06:00 12/25/24 09:18 IV 12/25/24 23:59 80 mls/hr INFUSION MIKE Administration IV Miscellaneous Supplies 1 each 12/25/24 06:00 Iv Access IV 12/25/24 23:59 DIRECTED MIKE Sodium Chloride 0 ml 12/25/24 06:00 Normal Saline Flush 10 Ml Syr IV 12/25/24 23:59 PRN PRN Sodium Chloride 0 ml 12/25/24 06:00 Normal Saline 10 Ml Vial IJ 12/25/24 23:59 DIRECTED PRN Sterile Water 0 ml 12/25/24 06:00 Water,Injection,Sterile 10 Ml Vial IJ 12/25/24 23:59 DIRECTED PRN Trimethoprim/Sulfamethoxazole 1 tab 12/25/24 06:00 12/25/24 09:10 Sulfameth/Trimeth Ds Tab PO 12/25/24 23:59 1 tab PREOP MIKE Administration PFSH Active Problems Active Problems: Problem Status Onset Code Other amnesia Acute R41.3 Thoracic degenerative disc disease Acute M51.34 Hammertoe of right foot Acute M20.41 Bunion, right foot Acute M21.611 Dysfunction of eustachian tube Acute H69.90 Thoracic spondylosis without myelopathy Acute M47.814 OAB (overactive bladder) Acute N32.81 Otitis media Acute H66.90 URI, acute Acute J06.9 Pain in left foot Acute M79.672 Nail dystrophy Acute L60.3 Onychomycosis Acute B35.1 Urge incontinence Acute N39.41 DOMINIC (generalized anxiety disorder) Acute F41.1 HERMINIO (obstructive sleep apnea) Chronic G47.33 Osteopenia Acute M85.80 Fecal soiling due to fecal incontinence Acute R15.9 Chronic diarrhea Acute K52.9 Fecal incontinence Acute R15.9 External hemorrhoids without complication Acute K64.4 Internal hemorrhoids without complication Acute K64.8 Open fracture of left distal radius and ulna Acute 11/25/22 S52.502B, S52.602B Cellulitis Acute L03.90 Right rib fracture Acute S22.31XA Restless leg syndrome Acute G25.81 Right upper lobe pulmonary infiltrate Acute R91.8 Hemoptysis Acute R04.2 HTN (hypertension) Chronic I10 COPD (chronic obstructive pulmonary disease) Chronic J44.9 Chest pain Acute R07.9 Medical History Medical History Strain of trapezius muscle Spontaneous intracranial hemorrhage retirement current use of opiate analgesic Diarrhea Dyspnea Memory impairment Fatigue Dizziness Lumbosacral radiculopathy Degenerative lumbar spinal stenosis Hemorrhoids Diastolic dysfunction Cardiomegaly Depressive disorder History of emphysema Essential hypertension Mild neurocognitive disorder Dilation of aorta Insomnia Urinary incontinence Benign neoplasm of meninges Atypical chest pain Per pt. states she has had this for 15 years, of unknown orgin, and they have yet to find out why Pain in thoracic spine Nasal discharge Night sweat Petechial hemorrhage Surgical wound dehiscence Fracture of right distal radius Lumbar spondylosis Thoracic aortic ectasia History of SCC (squamous cell carcinoma) of skin (~2016) completely excised from right neck Meningioma History of gastroesophageal reflux (GERD) C. difficile diarrhea (~09/2019) Urinary frequency Surgical History Surgical History History of local excision of skin lesion 09/13/2016 SCC R neck History of right hip replacement History of bunionectomy History of back surgery lumbar decompression 09/13/22 L5-S1 and cyst removal History of left knee replacement History of total right knee replacement (~2016) History of total right hip arthroplasty (~2014) S/P appendectomy Tobacco Smoking/Tobacco Use Status: Former Tobacco Use Passive smoking exposure: No Alcohol Alcohol Intake: never Substance Use Substance use: Never Substance use type: does not use Vital Signs and Lab Results Vital Signs Most Recent Vital Signs in EMR: Most Recent Vital Signs Temp Pulse Resp BP Pulse Ox 36.5 C 70 20 172/78 H 98 12/25/24 08:58 12/25/24 08:58 12/25/24 08:58 12/25/24 08:58 12/25/24 08:58 Lab Results Blood Type / Crossmatch: No Data to Display Complete Blood Count: No Data to Display Complete Metabolic Panel: No Data to Display Liver Function Panel: No Data to Display Coagulation Panel: No Data to Display Cardiac Panel: No Data to Display Arterial Blood Gas: No Data to Display Venous Blood Gas: No Data to Display Pancreas Panel: No Data to Display Thyroid Panel: No Data to Display Infectious Disease: No Data to Display Blood Cultures: No Data to Display Toxicology Panel: No Data to Display Imaging and Studies Imaging and Studies Study information below may be from another EMR and interpreted by another provider. Please see original notes in EMR for more complete details. EKG Summary: 12/03: sinus, PACs, LVH. Stress Test Summary: 09/04: no ischemia or infarct. EF 58%. Anesthesia Assessment and Plan Anesthesia History Personal History: No History of Anesthesia Complications Family History: No Family History of Anesthesia Complications Exercise Tolerance Exercise Tolerance: Metabolic Equivalents>4 Pertinent Negatives Pertinent Negatives: No Symptoms of GERD Cardiac & Pulmonary Exam Cardiac Exam: Normal S1/S2 Heart Sounds Pulmonary Exam: Clear Bilateral Breath Sounds Implantable Cardiac Device Does patient have a Pacemaker or an ICD?: No Airway Exam Known Difficult Airway: No Mallampati Class: 2 Mouth Opening: Normal (> 3cm) Thyromental Distance: Greater than 3 cm Neck Range of Motion: Full ROM Neck Circumference: Normal Teeth Condition: Normal Dentition ASA Classification ASA Score: ASA 3 Emergency Case?: No NPO Status NPO Status: NPO Clears >2 hours, Solids >8 hours Anesthesia Plan Resuscitation Status: Full Code Anesthesia Technique: General Anesthesia Airway Planned: Natural Airway Monitors Used: Standard Monitors
[2024-12-25 10:16] VITALS: BMI 19.7
[2024-12-25] MEDS: BOTULINUM TOXIN TYPE A 100 UNITS, Normal Saline 20 ML IJ (11:08)
[2024-12-25] MEDS: Lidocaine 2% Jelly 6 ML SYR (11:08)
[2024-12-25 11:17] VITALS: BP 117/82; PULSE 74; RESP 16; TEMP 36.1; O2SAT 96
--- NOTE | 2024-12-25 11:17 | W.PM.DSUDISC ---
Date of service: 12/25/24 Discharge Plan Disposition Patient Disposition: Home Condition: Stable Discharge Details Attending Provider: Smooth Thomas Primary Care Provider: Marivel Collins Home Meds and New Rx's Prescriptions: No Action magnesium 250 mg tablet 250 mg PO DAILY MaculaPF 10-20-13-4 mg capsule 1 cap PO DAILY diltiazem HCl 240 mg capsule,extended release 24hr 240 mg PO DAILY lisinopril 40 mg tablet 40 mg PO DAILY cholecalciferol (vitamin D3) 25 mcg (1,000 unit) capsule 25 mcg PO DAILY caffeine 200 mg tablet 200 mg PO DAILY PRN hydrocortisone 2.5 % cream See Rx Instructions .ROUTE .COMPLEX Qty: 30 12RF Dose Instruction: APPLY TOPICALLY FOUR TIMES A DAY NEEDED FOR HEMORRHOIDS Rx Instructions: APPLY TOPICALLY FOUR TIMES A DAY NEEDED FOR HEMORRHOIDS duloxetine 30 mg capsule,delayed release(DR/EC) 30 mg PO DAILY fluticasone propionate [Flonase Allergy Relief] 50 mcg/actuation spray,suspension 1 spray intranasal DAILY PRN Rx Instructions: administer into each nostril Trelegy Ellipta 100-62.5-25 mcg blister with device 1 inh inhalation DAILY hydrocodone-acetaminophen 5-325 mg tablet 1 tab PO TID PRN Patient Comments: TAKE ONE TABLET BY MOUTH THREE TIMES A DAY NEEDED pregabalin 25 mg capsule 25 mg PO DAILY Patient Comments: TAKE ONE CAPSULE BY MOUTH AT BEDTIME NEEDED Discharge Instructions Additional Instructions: Please call the office in about 1 week to give us a progress report Followup appointment in 6 months Activity:: Activity as Tolerated Shower/Bathe:: 24 hours Diet:: As Tolerated Discharge Orders Discharge Orders: Discharge Order (Routine); Ordered 12/25/24 Ordered By: Smooth Thomas DS: Diagnosis Discharge Diagnosis (1) Urge incontinence: Status: Acute (2) OAB (overactive bladder): Status: Acute
--- NOTE | 2024-12-25 11:27 | W.ANESPOSTOP ---
Postoperative Evaluation Date, Time and Location Date Performed: 12/25/24 Time Performed: 11:27 Patient Location: Day Surgery Unit Vital Signs Most Recent Imported Vital Signs: Most Recent Vital Signs Temp Pulse Resp BP Pulse Ox 36.1 C L 74 16 117/82 96 12/25/24 11:17 12/25/24 11:17 12/25/24 11:17 12/25/24 11:17 12/25/24 11:17 Pain Score Most Recent Pain Score: Most Recent Pain Score Pain Level 0 12/25/24 11:17 Assessment Mental Status: Awake (Alert & Oriented to Patient Baseline) Airway and Respiratory Function: Patent airway with normal (patient baseline) respiratory exam Cardiovascular Function: Hemodynamically Stable Hydration Status: Adequately Hydrated Nausea & Vomiting: No Nausea or Vomiting Pain: Pain is tolerable per patient Peripheral Nerve Block: Patient did not receive a nerve block
[2024-12-25 11:43] VITALS: BP 154/84; PULSE 73; RESP 16; TEMP 36.4; O2SAT 99
--- NOTE | 2024-12-25 12:19 | ROE_ITS ---
Operative Note Operative Note PRE-OP DIAGNOSIS: Overactive Bladder POST-OP DIAGNOSIS: same PROCEDURE: cystoscopy with transurethral injection of Botox into detrusor muscle SURGEON: Smooth Thomas ANESTHESIA TYPE: Local By Surgeon and General:No Airway Refer to Anesthesia Record ESTIMATED BLOOD LOSS: 5 PATHOLOGY: none sent Patient was transported to: same day Patient's condition: stable Implants: 100 Units Botox Indications: This is an 84-year-old woman who has a history of urgency incontinence related to an overactive bladder. She has failed behavioral modifications/pelvic floor physical therapy and beta 3 agonists. She has had some benefit from injections of Botox previously. She presents for repeat injection of Botox into the detrusor muscle Findings: Normal-appearing bladder Procedure Description: The patient was given oral antibiotics and brought to the operating room on 12/25/2024. After successful induction of general anesthesia without intubation, she was placed in the dorsal lithotomy position. Her genitalia was prepped and draped. 2% Xylocaine jelly was instilled into the urethra. A 20 Vietnamese urethrotome sheath was passed through the urethra into the bladder. The bladder was inspected with a 30 degree lens. Both ureteral orifices appeared normal with no blood coming from either side. No papillary or nodular lesions were seen within the bladder. Using a transurethral injection system, we injected a total of 100 units of Botox into the detrusor muscle. We diluted the Botox in 20 mL of solution and injected 1 mL in each of 20 different locations. We injected on the posterior bladder wall using a grid pattern of 5 vertical rows and 4 horizontal rolls. We avoided the trigone and bladder neck regions with our injections. The bladder was then emptied and the scope was removed. The patient tolerated this procedure well with no complications. Date of Procedure: 12/25/24
== END 2024-12-25 11:58 | disposition home or self-care (01) ==
PROVIDERS: PCP Family Medicine; Visit Provider Urology
PROC: (CPT 52287; principal; 2024-12-25 09:30)
DX: N32.81 Overactive bladder (principal); N39.41 Urge incontinence
CPT/HCPCS: 52287; J0585; J1885; J2003; J2405; J2704

== ENCOUNTER 2025-04-17 07:18 | Emergency (ER) | payer MEDICARE, SELFPAY ==
--- NOTE | 2025-04-17 07:15 | DI.RAD_ITS ---
Exam(s) XR ANKLE RT COMPLETE EXAM: XR ANKLE RT COMPLETE CLINICAL HISTORY: pain, injury. TECHNIQUE: 2D digital imaging was performed of the right ankle. Three images were obtained. AP, lateral and oblique views were obtained. COMPARISON: No exams were available for comparison FINDINGS: BONES: There is an acute nondisplaced fracture of the medial malleolus. No bony destructive lesion is seen. Well corticated osseous densities are seen at the inferior lateral malleolus which are old. There is a moderate-sized plantar calcaneal spur. JOINTS: The ankle mortise is normally aligned. Postsurgical changes are seen in the midfoot. SOFT TISSUE: There is soft tissue swelling about the ankle particularly medially. There is a joint effusion. IMPRESSION: 1. Nondisplaced fracture through the medial malleolus extending into the tibial plafond. 2. Findings were discussed with Dr. Donato earlier in the day. DATA REPOSITORY: RADIATION DOSE DELIVERED:
[2025-04-17 07:19] VITALS: BP 123/67; PULSE 76; RESP 15; TEMP 36.4; O2SAT 98
--- NOTE | 2025-04-17 07:27 | W.ED.GENAD ---
Discharge Plan Disposition Patient Disposition: Home Condition: Stable Discharge Details Clinical Impression: Fracture of distal end of right tibia Primary Care Provider: Marivel Collins ED Provider: Jackelyn Donato Home Meds and New Rx's Prescriptions: No Action magnesium 250 mg tablet 250 mg PO DAILY MaculaPF 10-20-13-4 mg capsule 1 cap PO DAILY diltiazem HCl 240 mg capsule,extended release 24hr 240 mg PO DAILY lisinopril 40 mg tablet 40 mg PO DAILY cholecalciferol (vitamin D3) 25 mcg (1,000 unit) capsule 25 mcg PO DAILY caffeine 200 mg tablet 200 mg PO DAILY PRN hydrocortisone 2.5 % cream See Rx Instructions .ROUTE .COMPLEX Qty: 30 12RF Dose Instruction: APPLY TOPICALLY FOUR TIMES A DAY NEEDED FOR HEMORRHOIDS Rx Instructions: APPLY TOPICALLY FOUR TIMES A DAY NEEDED FOR HEMORRHOIDS duloxetine 30 mg capsule,delayed release(DR/EC) 30 mg PO DAILY fluticasone propionate [Flonase Allergy Relief] 50 mcg/actuation spray,suspension 1 spray intranasal DAILY PRN Rx Instructions: administer into each nostril Trelegy Ellipta 100-62.5-25 mcg blister with device 1 inh inhalation DAILY Gemtesa 75 mg tablet 75 mg PO DAILY Qty: 30 6RF hydrocodone-acetaminophen 5-325 mg tablet 1 tab PO TID PRN Patient Comments: TAKE ONE TABLET BY MOUTH THREE TIMES A DAY NEEDED pregabalin 25 mg capsule 25 mg PO DAILY Patient Comments: TAKE ONE CAPSULE BY MOUTH AT BEDTIME NEEDED Discharge Instructions Instructions: How to Use Crutches, Walking Boot, Ankle Sprain ED Discharge Data Discharge Physician: Jackelyn Donato [facility] General Date/Time Provider Initiated Documentation: 04/17/25 07:26. HPI Narrative: 84-year-old female presents for evaluation of right ankle pain. Patient states that she fell out the front door today. She has pain and swelling to her right lateral ankle. No numbness or tingling. No other injuries. She did not hit her head or lose consciousness. She is able to ambulate with some discomfort. Related Data Home Medications ?Medication ?Instructions ?Recorded ?Confirmed caffeine 200 mg tablet 200 mg PO DAILY PRN 07/12/23 04/17/25 cholecalciferol (vitamin D3) 25 25 mcg PO DAILY 10/30/23 08/05/25 mcg (1,000 unit) capsule choline 10 mg-lutein 20 1 cap PO DAILY 07/12/23 04/17/25 mg-zeaxanthin 13 mg-astaxanthin 4 mg capsule (MaculaPF) diltiazem HCl 240 mg 240 mg PO DAILY 07/12/23 04/17/25 capsule,extended release 24 hr lisinopril 40 mg tablet 40 mg PO DAILY 07/12/23 04/17/25 hydrocodone 5 mg-acetaminophen 325 1 tab PO TID PRN 10/14/23 04/17/25 mg tablet magnesium 250 mg tablet 250 mg PO DAILY 10/29/23 04/17/25 hydrocortisone 2.5 % topical cream See Rx Instructions .Route 01/27/24 04/17/25 .COMPLEX #30 grams pregabalin 25 mg capsule 25 mg PO DAILY 05/16/24 04/17/25 duloxetine 30 mg capsule,delayed 30 mg PO DAILY 10/02/24 04/17/25 release fluticasone fur. 100 mcg-umeclid 1 inh inhalation DAILY 10/02/24 04/17/25 62.5 mcg-vilant 25 mcg inhalat.powder (Trelegy Ellipta) fluticasone propionate 50 1 spray intranasal DAILY PRN 10/02/24 04/17/25 mcg/actuation nasal spray,suspension (Flonase Allergy Relief) vibegron 75 mg tablet (Gemtesa) 75 mg PO DAILY #30 tabs 01/08/25 04/17/25 Held on 04/17/25. Instructions: Pt Stopped/Never Started Previous Rx's ?Medication ?Instructions ?Recorded hydrocortisone 2.5 % topical cream See Rx Instructions .Route 01/27/24 .COMPLEX #30 grams vibegron 75 mg tablet (Gemtesa) 75 mg PO DAILY #30 tabs 01/08/25 Held on 04/17/25. Instructions: Pt Stopped/Never Started Allergies Allergy/AdvReac Type Severity Reaction Status Date / Time morphine Allergy Severe Psychosis Verified 04/17/25 08:05 Penicillins Allergy Intermediate Hives Verified 04/17/25 08:05 indapamide AdvReac Unknown acute Verified 04/17/25 08:05 kidney injury General CASEY: 4 Review of Systems Narrative: Remainder of review of systems otherwise negative except for as noted in the HPI x 5. Exam Narrative Exam Narrative: General: non-toxic, no respiratory distress, comfortable HEENT: normocephalic, atraumatic, lids and lashes normal, PERRL, EOMI, anicteric sclera, no conjunctival injection, moist oral mucosa Musculoskeletal: Swelling to right lateral malleolus which is tender to palpation, no medial malleolus tenderness, Achilles intact, no metatarsal tenderness, 2+ dorsal pedal pulses, sensation tact, otherwise full range of motion of arms and legs, no tenderness to palpation. no clubbing, cyanosis, or edema Neurologic: appropriate for age, strength normal Psych: alert and oriented Skin: no petechiae, no lesions, warm and dry Medical Decision Making 84-year-old female presents for evaluation of right ankle injury. At time my evaluation she is neurologically intact. X-ray shows fracture of distal tibia. There is abnormality of the distal fibula. Patient does not recall prior injury. This does have chronic appearance. Case discussed with orthopedics Dr. Bartlett who recommends boot and weightbearing as tolerated. She will follow-up with orthopedics. [facility] All Active Problems (Updated 04/17/25 @ 09:14 by Jackelyn Donato MD) Fracture of distal end of right tibia (Acute) Sensorineural hearing loss, bilateral (Acute) Impacted cerumen, right ear (Acute) Other amnesia (Acute) Thoracic degenerative disc disease (Acute) Hammertoe of right foot (Acute) Bunion, right foot (Acute) Dysfunction of eustachian tube (Acute) Thoracic spondylosis without myelopathy (Acute) OAB (overactive bladder) (Acute) Otitis media (Acute) URI, acute (Acute) Pain in left foot (Acute) Nail dystrophy (Acute) Onychomycosis (Acute) Urge incontinence (Acute) DOMINIC (generalized anxiety disorder) (Acute) HERMINIO (obstructive sleep apnea) (Chronic) Osteopenia (Acute) Fecal soiling due to fecal incontinence (Acute) Chronic diarrhea (Acute) Fecal incontinence (Acute) External hemorrhoids without complication (Acute) Internal hemorrhoids without complication (Acute) Open fracture of left distal radius and ulna (Acute 11/25/22) Cellulitis (Acute) Right rib fracture (Acute) Restless leg syndrome (Acute) Right upper lobe pulmonary infiltrate (Acute) Hemoptysis (Acute) HTN (hypertension) (Chronic) COPD (chronic obstructive pulmonary disease) (Chronic) Chest pain (Acute) Medical History Strain of trapezius muscle 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 states she has had this for 15 years, of unknown orgin, and they have yet to find out why Pain in thoracic spine Nasal discharge Night sweat Petechial hemorrhage Surgical wound dehiscence Fracture of right distal radius Lumbar spondylosis Thoracic aortic ectasia History of SCC (squamous cell carcinoma) of skin (~2016) completely excised from right neck Meningioma History of gastroesophageal reflux (GERD) C. difficile diarrhea (~09/2019) Urinary frequency Surgical History History of local excision of skin lesion 09/13/2016 SCC R neck History of right hip replacement History of bunionectomy History of back surgery lumbar decompression 09/13/22 L5-S1 and cyst removal History of left knee replacement History of total right knee replacement (~2016) History of total right hip arthroplasty (~2014) S/P appendectomy Family History Mother Leukemia Hypertension Father Bladder cancer Emphysema of lung Son Substance abuse Social History Smoking/Tobacco Use Status: Former Tobacco Use Quit Date: 09/13/99 Smoking risk assessment performed?: Yes Alcohol Intake: never Drug use: Never Substance use type: does not use Housing: house Current gender identity: female Do you feel safe at home: Yes Do you feel safe in your relationship?: Yes
[2025-04-17] MEDS: Acetaminophen 500 MG TAB 1000 MG PO (07:47)
--- NOTE | 2025-04-17 09:21 | DI.VRAD_ITS ---
PROCEDURE INFORMATION: Exam: XR Right Ankle Exam date and time: 04/17/2025 7:43 AM Age: 84 years old Clinical indication: Injury or trauma; Fall; Sprain or strain; Right; Fell twist ankle TECHNIQUE: Imaging protocol: Radiologic exam of the right ankle. Views: 3 or more views. COMPARISON: No relevant prior studies available. FINDINGS: Osteopenia. Fracture of the medial malleolus extending to the tibial plafond. Nonacute fracture of the lateral malleolus. Midfoot fusion screws. Nonacute osseous fragment posterior to the talus. Calcaneal spurring. Ankle joint effusion. IMPRESSION: Fractures as above. Dictated and Authenticated by: Kate iJmenez MD. Orderin Kinga Hayden MD
[2025-04-17 09:47] VITALS: BP 141/71; PULSE 78; RESP 18; TEMP 36.9; O2SAT 96
== END 2025-04-17 09:53 | disposition home or self-care (01) ==
PROVIDERS: Emergency Provider Emergency Medicine Emergency Medical Services; PCP Family Medicine
DX: S82.54XA Nondisplaced fracture of medial malleolus of right tibia, initial encounter for closed fracture (principal); I10 Essential (primary) hypertension; J44.9 Chronic obstructive pulmonary disease, unspecified; Z87.891 Personal history of nicotine dependence; W13.8XXA Fall from, out of or through other building or structure, initial encounter; Y93.89 Activity, other specified; Y92.018 Other place in single-family (private) house as the place of occurrence of the external cause
CPT/HCPCS: 99283; 73610

== ENCOUNTER 2025-04-25 14:13 | Outpatient (CLI) | payer MEDICARE, SELFPAY ==
--- NOTE | 2025-04-25 13:45 | DI.RAD_ITS ---
Exam(s) XR ANKLE RT COMPLETE EXAM: XR ANKLE RT COMPLETE CLINICAL HISTORY: F/U FRACTURE. TECHNIQUE: 2D digital imaging was performed. Three views. COMPARISON: CR,XR XR ANKLE RT COMPLETE from 04/17/2025 FINDINGS: BONES: The previously noted fracture at the medial malleolus with extension to the tibial plafond remains nondisplaced. An old distal fibular fracture is again noted. Large plantar calcaneal spur. No bony destructive lesion is seen. JOINTS: The ankle mortise is normally aligned. SOFT TISSUE: Normal. IMPRESSION: Stable alignment of distal tibial fracture. DATA REPOSITORY: RADIATION DOSE DELIVERED:
--- NOTE | 2025-04-30 11:46 | NUR.NOTE ---
Access chart to print the provider note and the radiology reports to fax to [facility] for billing purposes. Nursing Note:
--- NOTE | 2025-04-30 11:46 | NUR.NOTE ---
Access chart to print the provider note and the radiology reports to fax to [facility] for billing purposes. Nursing Note:
--- NOTE | 2025-04-30 11:56 | NUR.NOTE ---
Access chart to print the provider note and radiology reports to fax to [facility] for billing purposes. Nursing Note:
--- NOTE | 2025-05-02 16:48 | NUR.NOTE ---
Access chart to print the 04/17/2025 note to send for [facility] billing. Nursing Note:
== END 2025-04-25 14:14 | disposition home or self-care (01) ==
LOC: DIORS 14:13
PROVIDERS: PCP Family Medicine; Referring Provider Family Medicine; Visit Provider Student in an Organized Health Care Education/Training Program
DX: S82.51XA Displaced fracture of medial malleolus of right tibia, initial encounter for closed fracture (principal); W01.0XXA Fall on same level from slipping, tripping and stumbling without subsequent striking against object, initial encounter
CPT/HCPCS: 99213; 73610

== ENCOUNTER 2025-05-16 15:04 | Outpatient (CLI) | payer MEDICARE, SELFPAY ==
--- NOTE | 2025-05-16 13:45 | DI.RAD_ITS ---
Exam(s) XR ANKLE RT COMPLETE EXAM: XR ANKLE RT COMPLETE CLINICAL HISTORY: F/U FRACTURE. TECHNIQUE: 2D digital imaging was performed. Three views. COMPARISON: CR,XR XR ANKLE RT COMPLETE from 04/17/2025 FINDINGS: BONES: There has been no change in the alignment of the fracture through the medial malleolus and tibial plafond. There is some callus formation indicating some interval healing. There is an old nonunited fracture at the tip of the distal fibula. Hardware is noted in the mid foot. No bony destructive lesion is seen. There is a prominent plantar calcaneal spur. JOINTS: The ankle mortise is normally aligned. The ankle joint space is maintained. SOFT TISSUE: Normal. IMPRESSION: Some interval healing of medial malleolar fracture. DATA REPOSITORY: RADIATION DOSE DELIVERED:
== END 2025-05-16 15:05 | disposition home or self-care (01) ==
LOC: DIORS 15:04
PROVIDERS: PCP Family Medicine; Referring Provider Family Medicine; Visit Provider Student in an Organized Health Care Education/Training Program
DX: S82.51XD Displaced fracture of medial malleolus of right tibia, subsequent encounter for closed fracture with routine healing (principal); X58.XXXD Exposure to other specified factors, subsequent encounter
CPT/HCPCS: 99213; 73610

== ENCOUNTER 2025-08-06 13:35 | Outpatient (REF) | payer MEDICARE, SELFPAY ==
[2025-08-07 11:48] LABS: Campylobacter PCR Negative (Negative); Shiga Toxin PCR Negative (Negative); Shigella/Enteroinvasive Ecoli Negative (Negative)
== END 2025-08-06 13:36 | disposition home or self-care (01) ==
LOC: NCHCN 13:35
PROVIDERS: PCP Family Medicine; Visit Provider Family Medicine
DX: R19.7 Diarrhea, unspecified (principal)
CPT/HCPCS: 87015; 87269; 87272; 87505; 83993

== ENCOUNTER 2025-08-30 12:02 | Outpatient (REF) | payer MEDICARE, SELFPAY ==
--- NOTE | 2025-08-30 12:45 | SKI_PTH ---
PATIENT: Rocio Lane LOC: [facility]#:[id number] AGE/SX: 84/F ROOM: RE08/30/[address]: Marivel Collins : 1940 BED: DIS: 08/30/2025 SPEC #: [id number] RECD: 08/31/25 12:08 STATUS: PRESLEY RIOS #: [id number] USMAN: 08/30/25 12:[address]: Marivel Collins DEPT: Surgical Specimen RECD BY: Stephania Dorantes Tissues: 1 - SKIN BIOPSY(SHAVE/PUNCH) Procedures: SKIN LEVEL 4 Comments: [id number]
== END 2025-08-30 12:03 | disposition home or self-care (01) ==
LOC: NCHCN 12:02
PROVIDERS: PCP Family Medicine; Visit Provider Family Medicine
DX: C44.92 Squamous cell carcinoma of skin, unspecified (principal)
CPT/HCPCS: 88305